=== PATIENT | female | born 1970 | race Hispanic/Latino ===

== ENCOUNTER 2018-05-02 13:06 | Emergency (ER) | payer BC ==
[2018-05-02] MEDS ORDERED: NA CHLORIDE 0.9% 500 ML ONE (13:46)
--- NOTE | 2018-05-02 14:19 | RAD REPORT ---
EXAM DESCRIPTION: Kristan Single View05/02/2018 2:12 pm CLINICAL HISTORY: Palpitation hypertension COMPARISON: April 30, 2018 FINDINGS: The lungs appear clear of acute infiltrate. The heart is normal size IMPRESSION: No acute abnormalities displayed
[2018-05-02 14:43] LABS: BUN Blood Urea Nitrogen 7 mg/dL (7-18); Bicarbonate 26 mmol/L (21-32); CKMB Creatine Kinase MB 1.4 ng/mL (0.3-3.6); Creatine Phosphokinase 123 U/L (26-192); Glucose Level 100 mg/dL (74-106); Magnesium 2.1 mg/dL (1.8-2.4); NT PRO-BNP 595 pg/mL (<125); Potassium 3.7 mmol/L (3.5-5.1); Sodium Level 141 mmol/L (136-145)
[2018-05-02 15:23] LABS: Absolute Lymphocytes (CBC) 2.4 K/uL (0.7-4.9); Absolute Monocytes 0.5 K/uL (0.1-1.3); Absolute Neutrophil 4.8 K/uL (1.8-8.0); Basophils % 0.6 % (0-1.3); Eosinophils % 0.7 % (0-4.4); Hematocrit 43.1 % (36.0-45.0); Lymphocytes % 30.5 % (15.3-44.8); MCV 89.1 fL (80-100); MPV 8.2 fL (7.6-11.3); Monocytes % 6.5 % (3.3-12.3); RBC Red Blood Cell Count 4.84 M/uL (3.86-4.86)
--- NOTE | 2018-05-02 16:09 | ER ---
Nurse's Notes [facility] Name: Nika Low Age: 47 yrs Sex: Female : 1970 Arrival Date: 05/02/2018 Time: 13:07 Bed 6 Private MD: Jeet Tucker Diagnosis: Palpitations;Ventricular premature depolarization Presentation: 05/02 13:28 Presenting complaint: Patient states: "My blood pressure has been normal and then high aa5 since Friday". Pt also reports heart palpitations since yesterday. Pt states "I have an arrhythmia". Pt states "Dr. Tucker saw me a few days ago and told me to stop taking Coreg because my heart rate was low and I took it again today". Pt states "I have an appointment with Dr. Guo (cardiology) for Friday". Transition of care: patient was not received from another setting of care. Onset of symptoms was April 2018. Risk Assessment: Do you want to hurt yourself or someone else? Patient reports no desire to harm self or others. Initial Sepsis Screen: Does the patient meet any 2 criteria? No. Patient's initial sepsis screen is negative. Does the patient have a suspected source of infection? No. Patient's initial sepsis screen is negative. Care prior to arrival: None. 13:28 Method Of Arrival: Ambulatory aa5 13:28 Acuity: GRANT 3 aa5 Historical: - Allergies: 13:30 caffeine; aa5 13:30 Sudafed; aa5 13:30 zpack; aa5 - Home Meds: 15:57 carvedilol 6.25 mg Oral tab [Active]; Cymbalta 20 mg Oral TbEC [Active]; levothyroxine tw2 150 mcg tab [Active]; simvastatin 40 mg Oral tab [Active]; - PMHx: 13:30 High Cholesterol; Hypothyroidism; Thyroid problem; Bigeminy Arrythmia; aa5 - PSHx: 13:30 Hysterectomy; Thyroidectomy; Knee surgery; aa5 - Immunization history:: Adult Immunizations. - Ebola Screening: : No symptoms or risks identified at this time. - Social history:: Smoking status: Patient/guardian denies using tobacco. Screenin:20 Abuse screen: Denies threats or abuse. Nutritional screening: No deficits noted. ae1 Tuberculosis screening: No symptoms or risk factors identified. Fall Risk None identified. Assessment: 14:42 General: Appears in no apparent distress. comfortable, obese, well groomed, Behavior is ae1 calm, cooperative. Pain: Denies pain. Neuro: Level of Consciousness is awake, alert, obeys commands, Oriented to person, place, time, situation. Cardiovascular: Heart tones S1 S2 present Patient's skin is warm and dry. Rhythm is irregular. Cardiovascular: Reports palpitations. Respiratory: Airway is patent Respiratory effort is even, unlabored, Respiratory pattern is regular, symmetrical. GI: No signs and/or symptoms were reported involving the gastrointestinal system. Abdomen is round obese. : No signs and/or symptoms were reported regarding the genitourinary system. EENT: No signs and/or symptoms were reported regarding the EENT system. Derm: Skin is normal. Musculoskeletal: No signs and/or symptoms reported regarding the musculoskeletal system. 16:05 Reassessment: Patient up to bathroom, obtained urine sample at this time. ae1 Vital Signs: 13:28 BP 158 / 80; Pulse 74; Resp 18 S; Temp 98.7; Pulse Ox 98% on R/A; Pain 0/10; aa5 14:44 BP 144 / 79; Pulse 65; Resp 17; Pulse Ox 98% on R/A; ae1 15:54 BP 137 / 73; Pulse 87; Resp 17; Pulse Ox 98% on R/A; tw2 ED Course: 13:07 Patient arrived in ED. mr 13:07 Jeet Tucker MD is Private Physician. mr 13:31 Arm band placed on. aa5 13:33 Brando Montgomery MD is Attending Physician. rn 13:40 Triage completed. aa5 13:50 EKG done, by ED staff, reviewed by Brando Montgomery MD. jb1 13:55 Tulio Krishnan, RN is Primary Nurse. ae1 14:00 Missed attempt(s): 22 gauge in right antecubital area. Bleeding controlled, band aid tw2 applied, catheter tip intact. 14:11 X-ray completed. Portable x-ray completed in exam room. Patient tolerated procedure la2 well. 14:11 XRAY Chest (1 view) In Process Unspecified. EDMS 14:20 Inserted saline lock: 24 gauge in right forearm, using aseptic technique. Blood ae1 collected. Missed attempt(s): 22 gauge in left antecubital area. 14:21 Placed in gown. Bed in low position. Call light in reach. Side rails up X 1. Cardiac ae1 monitor on. Pulse ox on. NIBP on. 16:07 Jeet Tucker MD is Referral Physician. rn 16:43 No provider procedures requiring assistance completed. IV discontinued, intact, ae1 bleeding controlled, No redness/swelling at site. Pressure dressing applied. Administered Medications: 14:19 Drug: NS 0.9% 500 ml Route: IV; Rate: bolus; Site: right forearm; ae1 16:44 Follow up: IV Status: Completed infusion ae1 Outcome: 16:08 Discharge ordered by MD. rn 16:43 Discharged to home ambulatory. ae1 16:43 Condition: stable 16:43 Discharge instructions given to patient, Instructed on discharge instructions, follow up and referral plans. Demonstrated understanding of instructions. 16:43 Patient left the ED. ae1 Signatures: Dispatcher [employer] EDMS Arvind Muse jb1 Kamila Griffith mr Brando Montgomery MD MD rn Calderon, Audri, RN RN aa5 Micheline Omalley RN RN tw2 Tulio Krishnan RN RN ae1 Mercedez Handy2
--- NOTE | 2018-05-02 16:09 | EDPHYS ---
Physician Documentation [facility] Name: Nika Low Age: 47 yrs Sex: Female : 1970 Arrival Date: 05/02/2018 Time: 13:07 Bed 6 Private MD: Jeet Tucker ED Physician Brando Montgomery HPI: 05/02 15:26 This 47 yrs old Female presents to ER via Ambulatory with complaints of rn Palpitations, High Blood Pressure. 15:26 The patient presents with a history of heart skipping beats. Context: The symptoms rn occur at rest. Onset: The symptoms/episode began/occurred yesterday. Duration: The patient or guardian reports multiple episodes. Modifying factors: The symptoms are aggravated by. Severity of symptoms: At their worst the symptoms were mild in the emergency department the symptoms have improved. The patient has experienced similar episodes in the past. Reports has had bigeminy for years, supposed to take coreg, stopped taking her coreg a few days ago because HR was low, as a result BP and HR increased, reports palpitations and intermittent chest pain. Seen by pcp, normal bloodwork and cxr, has appt with cardiology in 3 days.. Historical: - Allergies: 13:30 caffeine; aa5 13:30 Sudafed; aa5 13:30 zpack; aa5 - Home Meds: 15:57 carvedilol 6.25 mg Oral tab [Active]; Cymbalta 20 mg Oral TbEC [Active]; levothyroxine tw2 150 mcg tab [Active]; simvastatin 40 mg Oral tab [Active]; - PMHx: 13:30 High Cholesterol; Hypothyroidism; Thyroid problem; Bigeminy Arrythmia; aa5 - PSHx: 13:30 Hysterectomy; Thyroidectomy; Knee surgery; aa5 - Immunization history:: Adult Immunizations. - Ebola Screening: : No symptoms or risks identified at this time. - Social history:: Smoking status: Patient/guardian denies using tobacco. ROS: 16:05 Constitutional: Negative for fever, chills, and weight loss, Eyes: Negative for injury, rn pain, redness, and discharge, Neck: Negative for injury, pain, and swelling, Cardiovascular: + palpitations Respiratory: Negative for shortness of breath, cough, wheezing, and pleuritic chest pain, Abdomen/GI: Negative for abdominal pain, nausea, vomiting, diarrhea, and constipation, MS/Extremity: Negative for injury and deformity, Skin: Negative for injury, rash, and discoloration, Neuro: Negative for headache, weakness, numbness, tingling, and seizure. Exam: 16:05 Constitutional: This is a well developed, well nourished patient who is awake, alert, rn and in no acute distress. Head/Face: Normocephalic, atraumatic. Eyes: Pupils equal round and reactive to light, extra-ocular motions intact. Lids and lashes normal. Conjunctiva and sclera are non-icteric and not injected. Cornea within normal limits. Periorbital areas with no swelling, redness, or edema. Neck: Trachea midline, no thyromegaly or masses palpated, and no cervical lymphadenopathy. Supple, full range of motion without nuchal rigidity, or vertebral point tenderness. No Meningismus. Cardiovascular: Regularly irregular, no murmur, regular rate Respiratory: Lungs have equal breath sounds bilaterally, clear to auscultation and percussion. No rales, rhonchi or wheezes noted. No increased work of breathing, no retractions or nasal flaring. Abdomen/GI: Soft, non-tender, with normal bowel sounds. No distension or tympany. No guarding or rebound. No evidence of tenderness throughout. Skin: Warm, dry with normal turgor. Normal color with no rashes, no lesions, and no evidence of cellulitis. MS/ Extremity: Pulses equal, no cyanosis. Neurovascular intact. Full, normal range of motion. Equal circumference. Neuro: Awake and alert, GCS 15, oriented to person, place, time, and situation. Cranial nerves II-XII grossly intact. Motor strength 5/5 in all extremities. Sensory grossly intact. Cerebellar exam normal. Normal gait. Vital Signs: 13:28 BP 158 / 80; Pulse 74; Resp 18 S; Temp 98.7; Pulse Ox 98% on R/A; Pain 0/10; aa5 14:44 BP 144 / 79; Pulse 65; Resp 17; Pulse Ox 98% on R/A; ae1 15:54 BP 137 / 73; Pulse 87; Resp 17; Pulse Ox 98% on R/A; tw2 MDM: 13:33 Patient medically screened. rn 16:05 Differential diagnosis: arrythmia, dehydration, stress disorder. Data reviewed: vital rn signs, nurses notes. Data reviewed: lab test result(s), EKG, and as a result, I will discharge patient. Counseling: I had a detailed discussion with the patient and/or guardian regarding: the historical points, exam findings, and any diagnostic results supporting the discharge/admit diagnosis, lab results, the need for outpatient follow up, to return to the emergency department if symptoms worsen or persist or if there are any questions or concerns that arise at home. Response to treatment: the patient's symptoms have mildly improved after treatment, and as a result, I will discharge patient. ED course: Pt feels better, still with intermittent PVCs, at times with known bigeminy, has cardiology appt on Friday, has prescription for coreg that I recommended she start back up again since had been off, is to monitor BP and HR and not take coreg if either too low again. . 05/02 13:40 Order name: Basic Metabolic Panel; Complete Time: 14:59 rn 05/02 13:40 Order name: CBC with Diff; Complete Time: 15:26 rn 05/02 13:40 Order name: Ckmb; Complete Time: 14:59 05/02 13:40 Order name: CPK; Complete Time: 14:59 05/02 13:40 Order name: Magnesium; Complete Time: 14:59 05/02 13:40 Order name: NT PRO-BNP; Complete Time: 14:59 05/02 13:40 Order name: Troponin (emerg Dept Use Only); Complete Time: 14:59 05/02 13:40 Order name: XRAY Chest (1 view); Complete Time: 14:23 05/02 13:40 Order name: EKG; Complete Time: 13:40 05/02 13:40 Order name: TSH; Complete Time: 14:59 05/02 13:40 Order name: T4 Free; Complete Time: 14:59 05/02 16:12 Order name: Urine Dipstick--Ancillary (enter results) bd 05/02 16:12 Order name: Urine --Ancillary (enter results) bd 05/02 13:40 Order name: Urine Test (obtain specimen); Complete Time: 15:57 05/02 13:40 Order name: Cardiac monitoring; Complete Time: 14:19 05/02 13:40 Order name: EKG - Nurse/Tech; Complete Time: 13:55 rn 05/02 13:40 Order name: IV Saline Lock; Complete Time: 14: rn 05/02 13:40 Order name: Labs collected and sent; Complete Time: 14:19 rn 05/02 13:40 Order name: O2 Per Protocol; Complete Time: 14:19 rn 05/02 13:40 Order name: O2 Sat Monitoring; Complete Time: 14: rn 05/02 13:40 Order name: Urine Dipstick-Ancillary (obtain specimen); Complete Time: 15:57 rn Administered Medications: 14:19 Drug: NS 0.9% 500 ml Route: IV; Rate: bolus; Site: right forearm; ae1 16:44 Follow up: IV Status: Completed infusion ae1 Disposition: 05/02/18 16:08 Discharged to Home. Impression: Palpitations, Ventricular premature depolarization. - Condition is Stable. - Discharge Instructions: Palpitations, Premature Ventricular Contraction. - Medication Reconciliation Form, Thank You Letter, Antibiotic Education, Prescription Opioid Use form. - Follow up: Jeet Tucker MD; When: As needed; Reason: Recheck today's complaints, Re-evaluation by your physician. - Problem is an ongoing problem. - Symptoms have improved. Signatures: Dispatcher [employer] EDMS Brando Montgomery MD MD rn Calderon, Audri RN RN aa5 Micheline Omalley RN RN tw2 Tulio Krishnan, RN RN ae1 Corrections: (The following items were deleted from the chart) 16:43 16:08 05/02/2018 16:08 Discharged to Home. Impression: Palpitations; Ventricular ae1 premature depolarization. Condition is Stable. Forms are Medication Reconciliation Form, Thank You Letter, Antibiotic Education, Prescription Opioid Use. Follow up: Jeet Tucker; When: As needed; Reason: Recheck today's complaints, Re-evaluation by your physician. Problem is an ongoing problem. Symptoms have improved. rn
[2018-05-02 16:20] LABS: Urine Blood TRACE (NEG); Urine Glucose NEGATIVE (NEG); Urine Protein NEGATIVE (NEG)
[2018-05-02 16:49] VITALS: TEMP 98.7; O2SAT 98
[2018-05-02 16:51] VITALS: BP 137/73
--- NOTE | 2018-05-04 07:45 | EKG ---
Test Date: 2018-05-02 Test Time: 13:46:42 Referral Clerk: JHON MEASUREMENT RESULTS: Intervals: Rate: 65 TX: 192 QRSD: 92 QT: 450 QTc: 468 [place]: P: 29 TX: 192 QRS: -33 T: 66 INTERPRETIVE STATEMENTS: Sinus rhythm with frequent premature ventricular complexes Left axis deviation Moderate voltage criteria for LVH, may be normal variant Abnormal ECG Compared to ECG 04/03/2017 15:24:19 Sinus bradycardia no longer present Myocardial infarct finding no longer present Electronically Signed On 05-04-18 07:44:59 CDT by Jordi Guo
== END 2018-05-02 16:43 | disposition home or self-care (01) ==
LOC: ER 13:06
DX: R00.2 Palpitations (principal); I49.3 Ventricular premature depolarization; I10 Essential (primary) hypertension; E03.9 Hypothyroidism, unspecified; Z88.8 Allergy status to other drugs, medicaments and biological substances; Z91.048 Other nonmedicinal substance allergy status
CPT/HCPCS: 36415; 71045; 80048; 81003; 81025; 82550; 82553; 83735; 83880; 84439; 84443; 84484; 85025; 93005; 96360; 96361; 99284

== ENCOUNTER 2020-03-13 13:12 | Emergency (ER) | payer BC ==
[2020-03-13 15:23] LABS: Absolute Lymphocytes (CBC) 2.3 K/uL (0.7-4.9); Basophils % 0.5 % (0-1.3); Hematocrit 46.6 % (36.0-45.0); Lymphocytes % 29.2 % (15.3-44.8); MPV 8.3 fL (7.6-11.3); RBC Red Blood Cell Count 5.22 M/uL (3.86-4.86)
--- NOTE | 2020-03-13 15:23 | RAD REPORT ---
EXAM DESCRIPTION: RAD - Chest Single View - 03/13/2020 3:13 pm CLINICAL HISTORY: CHEST PAIN Chest pain. COMPARISON: Chest Single View dated 05/02/2018; Chest Pa And Lat (2 Views) dated 04/30/2018; Chest Sin gle View dated 04/03/2017; Chest Single View dated 01/29/2016 FINDINGS: Portable technique limits examination quality. The lungs are grossly clear. The heart is normal in size. No displaced fractures. IMPRESSION: No acute intrathoracic process suspected.
[2020-03-13] MEDS ORDERED: ASPIRIN EC 81 MG TAB PO ONE (15:49)
[2020-03-13 15:52] LABS: ALT/SGPT 28 U/L (12-78); AST/SGOT 15 U/L (15-37); Albumin 3.8 g/dL (3.4-5.0); Alkaline Phosphatase 79 U/L (45-117); BUN Blood Urea Nitrogen 17 mg/dL (7-18); Bicarbonate 28 mmol/L (21-32); Bilirubin Direct < 0.1 mg/dL (0-0.2); Bilirubin Total 0.5 mg/dL (0.2-1.0); Glucose Level 89 mg/dL (74-106); Magnesium 2.3 mg/dL (1.8-2.4); NT PRO-BNP 43 pg/mL (<125); Potassium 4.3 mmol/L (3.5-5.1); Protein, Total 7.9 g/dL (6.4-8.2); Sodium Level 138 mmol/L (136-145); Troponin (Emerg Dept Use Only) < 0.02 ng/mL (0.0-0.045)
--- OUTSIDE RECORDS SUMMARY | 2020-03-13 16:15 | XMS REPORT | Summary of Care ---
:1970 Author Organization [facility] Address [address] [place] [id number] Care Team Providers Name Role Phone Caitlin Jeet Primary Care Provider Reason for Referral Radiology Services (Routine) Status Reason Specialty Diagnoses / Referred By Referred To Procedures Contact Contact New Request Diagnostic Diagnoses Postsurgical hypothyroidism Thyroid cancer Silver[place], Radiology Procedures US HEAD NECK MD Bridgette [address] [place] [id number] Reason for Visit Reason Comments Thyroid Problem follow up Encounter Details Date Type Department Care Team Description 02/14/2020 Telemedicine Visit [facility] [place]io, Postsurgi shahla hypothyroidism (Primary Dx); Endocrinology- MD Bridgette Thyroid cancer; [address] Class 3 severe obesity due t o excess calories without serious comorbidity with body mass index (BMI) of 45.0 to 49.9 in adult Professional [address] [address] [address] [place], [place] [phone] (Fax) [phone] Allergies Active Allergy Reactions Severity Noted Date Comments Codeine Palpitations 06/21/2015 documented as of this encounter (statuses as of 02/14/2020) Medications Medication Sig Dispensed Refills Start Date End Date Status simvastatin (ZOCOR) 40 Take 1 Tab by 90 Tab 3 11/14/2015 Active mg tabletIndications: mouth at HLD (hyperlipidemia) bedtime. carvedilol (COREG) 3.125 Take 1 tablet by 60 tablet 1 05/14/20 17 Active mg tabletIndications: mouth 2 (two) Heart palpitations times daily with meals. meloxicam 15 mg tablet Take 15 mg by 0 Active mouth daily. spironolactone 50 mg Take 50 mg by 0 Active tablet mouth daily. levothyroxine 150 mcg TAKE 1 TABLET BY 90 tablet 0 01/31/2020 Active tabletIndications: MOUTH EVERY DAY Postsurgical IN THE MORNING hypothyroidism, Thyroid cancer documented as of this encounter (statuses as of 02/14/2020) Active Problems Problem Noted Date Postsurgical hypothyroidism 05/14/2017 H. 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 documented as of this encounter Last Filed Vital Signs Not on filedocumented in this encounter Progress Notes Bridgette Sawyer MD - 02/14/2020 3:00 PM CDT TELEHEALTH NOTE Verbal consent obtained from Patient: Nika Low due to the COVID-19 pandemic for telehealth services provided below. Communication with patient was conducted via Video Call. Location of Patient: Home Location of Provider: Clinic Date of Service: 02/14/2020 Chief complaint: Hypothyroidism/Thyroid cancer- follow up HPI: Nika Low is a 48 year old /White female eith hx of postsurgical hypothyroidism and PTC. [facility] 12/2018. 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 In terms of surveillance, she has not brought any Thyroglobulin levels but states had been OK. Her postsurgical yearly head and neck USG show no recurrence in 07/2011, 10/2011, 11/2012, 10/2013,11/2015 Patient was released from [facility] cancer center in 2013. TG, TG AB undetectable in 04/2016, 04/2017, 12/2018 neck USG 11/2015- no thyroid tissue and benign looking lymph nodes in neck Postsurgical hypothyroidism: Takes Levothyroxine at 150 mcg daily. As instructed. No biotin Feels fine at this time. Denied heat or cold intolerance. Denied palpitations or tremors. Bowel function sleep, appetite and weight are good. Weight loss-- about 40 lbs in last year which was intentional. HISTORY Reviewed past medical, surgical, social, family history and no changes REVIEW OF SYSTEMS Constitutional: + weight loss- 40 Lb in last year Mouth/Throat: denies dysphagia and denies hoarseness. Neck: negative, denies pain, denies swollen glands Cardiovascular: Denies palpitations. Respiratory: denies chest congestion, denies dyspnea on exertion and denies shortness of breath. Gastrointestinal: denies abdominal pain. Musculoskeletal: denies muscle cramps. Skin: denies rash. Neuro: denies tremor. TELEHEALTH EXAM Patient appears alert and oriented. Breathing unlabored. Answered all the questions appropriately. Normal thought content/speech Current Outpatient Medications Medication Sig Dispense Refill levothyroxine 150 mcg tablet TAKE 1 TABLET BY MOUTH EVERY DAY IN THE MORNING 90 tablet 0 meloxicam 15 mg tablet Take 15 mg by mouth daily. spironolactone 50 mg tablet Take 50 mg by mouth daily. carvedilol (COREG) 3.125 mg tablet Take 1 tablet by mouth 2 (two) times daily with meals. 60 tablet 1 simvastatin (ZOCOR) 40 mg tablet Take 1 Tab by mouth at bedtime. 90 Tab 3 No current facility-administered medications for this visit. 11/17/2015 1:56 PM Narrative *.*.*.*.*.*.*.*.*.*.*.*.*.*FINAL*.*.*.*.*.*.*.*.*.*.*.*.*.*.* HISTORY: History of thyroidectomy. TECHNIQUE: Thyroid gland region and rest of the lower neck were evaluated in multiple planes without and with color imaging. FINDINGS: No residual thyroid tissue detected. 2 lymph nodes are seen in the right lower neck (15 x 6.5 mm, 6.2 x 4.8 mm) and 2 lymph nodes were detected also in the left lower neck, (11.4 x 4.7 mm and 10 x 4.6 mm). None of these lymph nodes showed any hypervascularity and the mediastinal fatty halo appears to be preserved in all of the lymph nodes. CONCLUSIONS: Small lymph nodes in both sides of neck, likely incidental nonspecific cervical adenopathy. No residual thyroid tissue is appreciated. Component Latest Ref Rng 05/02/2016 05/02/2016 05/02/2016 8:43 AM 8:43 AM 8:43 AM THYROGLOBULIN ANTIBODIES-Q < or = 1 IU/mL <1 THYROGLOBULIN-Q <0.1 (L) TSH, 3RD GENERATION-Q 0.92 T-4, FREE-Q 0.8 - 1.8 ng/dL 1.5 Component Latest Ref Rng & Units 11/07/2017 11/07/2017 12:04 PM 12:04 PM TSH, 3RD GENERATION-Q mIU/L 1.27 T-4, FREE-Q 0.8 - 1.8 ng/dL 1.4 Recent labs 04/2017: Undetectable TG and TG AB TFT's at goal Component Latest Ref Rng & Units 01/05/2019 3:59 PM THYROGLB Ab 0.0 - 4.0 IU/mL <0.9 THYROGLOB 1.3 - 31.8 ng/mL <0.1 (L) Thyroglobulin by LC-MS/MS Serum/Plasma 1.3 - 31.8 ng/mL Not Applicable T4,Free(Direct)-LC 0.82 - 1.77 ng/dL 1.76 TSH-LC 0.450 - 4.500 uIU/mL 1.300 THYROGLB Ab 0.0 - 0.6 U 0.1 ASSESSMENT/PLAN ICD-10-CM ICD-9-CM 1. Postsurgical hypothyroidism E89.0 244.0 2. Thyroid cancer C73 193 Postsurgical hypothyroidism (primary encounter diagnosis) Comment: Clinically euthyroid. Repeat TFTs when able Plan: Continue LT4 at 150 mcg daily, adjust if needed based on TFTs Repeat TFTs prior to NOV TSH goal 0.5-2.0 F/U in a year Thyroid cancer Comment: No recurrence of thyroid cancer. In excellent response at this time. Plan: Repeat neck USG and TG/TGAb prior to AUG TSH goal 0.5-2 Obesity: Current weight is 290 lbs , ANGY a year ago weight was 335 lbs. Plan: Therapeutic lifestyle changes Diet--Limit red meats, sugary drinks, sweets/desserts, fried foods and full fat dairy products. Exercise-- 30-40 min daily exercise everyday. After visit summary (AVS ) documentation will be available through [employer] for this encounter. A total of 20 minutes was spent on the Video Call, chart review, and coordination of care with specialists. Bridgette Sawyer MD Registration Officer Endocrinology, Diabetes and Metabolism documented in this encounter Plan of Treatment Name Type Priority Associated Diagnoses Order S chedule FREE T4 LAB Routine Postsurgical Expected: hypothyroidism 02/14/2020, Thyroid cancer Expires: 01/2021 THYROID STIMULATING LAB Routine Postsurgical Expected : HORMONE hypothyroidism 02/14/2020, Thyroid cancer Expires: 01/2021 US HEAD NECK IMAGING Routine Postsurgical Expected: hypothyroidism 05/16/2020, Thyroid cancer Expires: 01/2021 THYROGLOBULIN LAB Routine Postsurgical Expected: hypothyroidism 02/14/2020, Thyroid cancer Expires: 01/2021 THYROGLOBULIN AB LAB Routine Postsurgical Expected: hypothyroidism 02/14/2020, Thyroid cancer Expires: 01/2021 Health Maintenance Due Date Last Done Comments PNEUMOCOCCAL 0-64 YEARS COMBINED SERIES (1 of 3 - 12/10/1977 PCV13) DTaP,Tdap,and Td Vaccines (1 - Tdap) 12/10/1982 PAP SMEAR 12/10/1992 Breast Cancer Screening (MAMMOGRAM) 2011 INFLUENZA VACCINE (Season Ended) 2020 documented as of this encounter Results Not on filedocumented in this encounter Visit Diagnoses Diagnosis Postsurgical hypothyroidism - Primary Thyroid cancer Malignant neoplasm of thyroid gland Class 3 severe obesity due to excess shahla ories without serious comorbidity with body mass index (BMI) of 45.0 to 49.9 in adul t documented in this encounter Insurance Payer Benefit Plan Subscriber ID Effective Dates Phone Address Type / Group BCBS OF [facility] [id number] 2015-Andie [phone] [address] P[place] - OUT OF t [id number] [place] [address] documented as of this encounter
--- OUTSIDE RECORDS SUMMARY | 2020-03-13 16:15 | XMS REPORT ---
:1970 Author Organization [facility] t Address [address] [place] [address] Care Team Providers Name Role Phone Silverio AMAYA Attending Clinician Problems This patient has no known problems. Allergies, Adverse Reactions, Alerts This patient has no known allergies or adverse reactions. Medications This patient has no known medications. Procedures This patient has no known procedures. Encounters Start End Encounter Admission Attending Care Care Encounter Source Date/Time Date/Time Type Type Clinicians Facility Department ID 2020-02-14 2020-02-14 Telemed[facility] TIFFANY Sawyer [id number] 13:10:59 16:24:17 ne Visit Bridgette Moreno [id number] [place] [id number] Professio [phone] nal [address] Building 2020-01-31 2020-01-31 Refill TIFFANY Sawyer [id number] 00:00:00 00:00:00 Bridgette Moreno [id number] [place] [id number] Professio [phone] nal 220 Building Results This patient has no known results.
--- OUTSIDE RECORDS SUMMARY | 2020-03-13 16:15 | XMS REPORT | Summary of Care ---
:1970 Author Organization [facility] Address [address] [place] [id number] Care Team Providers Name Role Phone Jeet Tucker Primary Care Provider Reason for Visit Reason Comments Refill Request Encounter Details Date Type Department Care Team Description 01/31/2020 Refill [facility] Endocrinology- Bridgette Joshi MD Refill Request [address] Professional Office [address] Bermudez [phone] [address] [place] [address] Allergies Active Allergy Reactions Severity Noted Date Comments Codeine Palpitations 06/21/2015 documented as of this encounter (statuses as of 01/31/2020) Medications Medication Sig Dispensed Refills Start Date End Date Status simvastatin (ZOCOR) Take 1 Tab 90 Tab 3 11/14/2015 Active 40 mg by mouth at tabletIndications: bedtime. HLD (hyperlipidemia) carvedilol (COREG) Take 1 60 tablet 1 05/14/2017 Active 3.125 mg tablet by tabletIndications: mouth 2 Heart palpitations (two) times daily with meals. meloxicam 15 mg Take 15 mg 0 Act sudha tablet by mouth daily. spironolactone 50 Take 50 mg 0 A ctive mg tablet by mouth daily. levothyroxine 150 TAKE 1 90 tablet 0 01/31/2020 A ctive mcg TABLET BY tabletIndications: MOUTH EVERY Postsurgical DAY IN THE hypothyroidism, MORNING Thyroid cancer levothyroxine 150 TAKE 1 90 tablet 3 01/05/2019 D iscontinued mcg TABLET BY 0 (Reorder) tabletIndications: MOUTH EVERY Postsurgical DAY IN THE hypothyroidism, MORNING Thyroid cancer documented as of this encounter (statuses as of 01/31/2020) Active Problems Problem Noted Date Postsurgical hypothyroidism 05/14/2017 H. pylori infection 09/12/2010 Helicobacter pylori infection 08/31/2010 Overview: ICD10 Diagnosis Term [employer] Morbid obesity 06/12/2010 Thyroid cancer 06/12/2010 HLD (hyperlipidemia) 06/12/2010 Overview: ICD10 Diagnosis Term [employer] CLIFFORD (obstructive sleep apnea) Hyperlipemia documented as of this encounter (statuses as of 01/31/2020) Social History Tobacco Use Types Packs/Day Years [...] Signs Not on filedocumented in this encounter Plan of Treatment Date Type Specialty Care Team Description 02/14/2020 Office Visit Endocrinology Diabetes & Kesired dyBridgette MD Metabolism [address] [place] [address] [phone] Health Maintenance Due Date Last Done Comments PNEUMOCOCCAL 0-64 YEARS COMBINED SERIES (1 of 3 - 12/10/1977 PCV13) DTaP,Tdap,and Td Vaccines (1 - Tdap) 12/10/1982 PAP SMEAR 12/10/1992 Breast Cancer Screening (MAMMOGRAM) 2011 INFLUENZA VACCINE (#1) 2019 documented as of this encounter Results Not on filedocumented in this encounter Visit Diagnoses Diagnosis Postsurgical hypothyroidism Thyroid cancer Malignant neoplasm of thyroid gland documented in this encounter Insurance Payer Benefit Plan Subscriber ID Effective Dates Phone Address Type / Group BC[employer] OF [facility] [place] [id number] 2015-Andie [phone] [address] [place] - OUT OF t 7 [id number] [place] [address] documented as of this encounter
[2020-03-13 17:05] VITALS: TEMP 97.9
[2020-03-13 17:08] VITALS: BP 128/88; O2SAT 100
--- NOTE | 2020-03-13 20:17 | EDPHYS ---
Physician Documentation [facility] Name: Nika Low Age: 49 yrs Sex: Female : 1970 Arrival Date: 03/13/2020 Time: 13:23 Bed 15 Private MD: MARVIN Physician Bay Vang HPI: 03/13 14:32 This 49 yrs old Female presents to ER via Ambulatory with complaints of High seth Blood Pressure. 14:32 The patient has elevated blood pressure and discovered this at home. Onset: The seth symptoms/episode began/occurred just prior to arrival. Modifying factors: The symptoms are aggravated by activity, The symptoms are alleviated by remaining still. Associated signs and symptoms: The patient has no apparent associated signs or symptoms. Severity of symptoms: At its worst the blood pressure was moderate, in the emergency department the blood pressure is improved, moderately. The patient has experienced similar episodes in the past, a few times. 14:34 The patient complains of pain to the forehead. The patient describes the headache as seth aching. Onset: The symptoms/episode began/occurred just prior to arrival. bp up at work, went home got perez, noted bp high , called oren, sent to the er. Associated signs and symptoms: Pertinent positives: dizziness. Severity of symptoms: At its worst the pain was mild, in the emergency department the pain is unchanged. - Immunization history:: Adult Immunizations unknown. - Social history:: Smoking status: Patient denies any tobacco usage or history of. - Family history:: not pertinent. ROS: 14:34 Constitutional: Negative for fever, chills, and weight loss, Eyes: Negative for injury, seth pain, redness, and discharge, ENT: Negative for injury, pain, and discharge, Neck: Negative for injury, pain, and swelling, Cardiovascular: Negative for chest pain, palpitations, and edema, Respiratory: Negative for shortness of breath, cough, wheezing, and pleuritic chest pain, Abdomen/GI: Negative for abdominal pain, nausea, vomiting, diarrhea, and constipation, : Negative for injury, bleeding, discharge, and swelling, MS/Extremity: Negative for injury and deformity, Skin: Negative for injury, rash, and discoloration, Psych: Negative for depression, anxiety, suicide ideation, homicidal ideation, and hallucinations, Allergy/Immunology: Negative for hives, rash, and allergies, Endocrine: Negative for neck swelling, polydipsia, polyuria, polyphagia, and marked weight changes. 14:34 Back: Negative for injury and pain. seth 14:34 Neuro: Positive for headache, weakness. Exam: 14:34 Constitutional: This is a well developed, well nourished patient who is awake, alert, seth and in no acute distress. Head/Face: Normocephalic, atraumatic. Eyes: Pupils equal round and reactive to light, extra-ocular motions intact. Lids and lashes normal. Conjunctiva and sclera are non-icteric and not injected. Cornea within normal limits. Periorbital areas with no swelling, redness, or edema. ENT: Nares patent. No nasal discharge, no septal abnormalities noted. Tympanic membranes are normal and external auditory canals are clear. Oropharynx with no redness, swelling, or masses, exudates, or evidence of obstruction, uvula midline. Mucous membranes moist. Neck: Trachea midline, no thyromegaly or masses palpated, and no cervical lymphadenopathy. Supple, full range of motion without nuchal rigidity, or vertebral point tenderness. No Meningismus. Chest/axilla: Normal chest wall appearance and motion. Nontender with no deformity. No lesions are appreciated. Cardiovascular: Regular rate and rhythm with a normal S1 and S2. No gallops, murmurs, or rubs. Normal PMI, no JVD. No pulse deficits. Respiratory: Lungs have equal breath sounds bilaterally, clear to auscultation and percussion. No rales, rhonchi or wheezes noted. No increased work of breathing, no retractions or nasal flaring. Abdomen/GI: Soft, non-tender, with normal bowel sounds. No distension or tympany. No guarding or rebound. No evidence of tenderness throughout. Back: No spinal tenderness. No costovertebral tenderness. Full range of motion. Skin: Warm, dry with normal turgor. Normal color with no rashes, no lesions, and no evidence of cellulitis. MS/ Extremity: Pulses equal, no cyanosis. Neurovascular intact. Full, normal range of motion. Neuro: Awake and alert, GCS 15, oriented to person, place, time, and situation. Cranial nerves II-XII grossly intact. Motor strength 5/5 in all extremities. Sensory grossly intact. Cerebellar exam normal. Normal gait. Psych: Awake, alert, with orientation to person, place and time. Behavior, mood, and affect are within normal limits. 14:34 Musculoskeletal/extremity: Tendon exam: specific tendon testing normal through active and passive range of motion DVT Exam: No signs of deep vein thrombosis. no pain, no swelling, no tenderness, negative Homans' sign noted on exam, no appreciated bluish discoloration, no erythema, no increased warmth. Vital Signs: 13:44 BP 129 / 75; Pulse 66; Resp 15; Temp 97.9(TE); Pulse Ox 98% on R/A; Weight 130.63 kg; ss Height 5 ft. 8 in. (172.72 cm); Pain 6/10; 15:30 BP 116 / 56; Pulse 48; Resp 16; Pulse Ox 99% on R/A; vc 16:30 BP 128 / 88; Pulse 56; Resp 18; Pulse Ox 100% on R/A; vc 13:44 Body Mass Index 43.79 (130.63 kg, 172.72 cm) Mya Coma Score: 14:39 Eye Response: spontaneous(4). Verbal Response: oriented(5). Motor Response: obeys seth commands(6). Total: 15. MDM: 14:20 Patient medically screened. [facility] 14:38 Data reviewed: vital signs, nurses notes, lab test result(s), EKG, radiologic studies, seth plain films. 14:39 Differential diagnosis: cluster headache, hypertensive crisis, hypertensive headache, seth sinusitis, tension headache. Differential Diagnosis. Data interpreted: domestic violence counselor: rate is 66 beats/min, Pulse oximetry: on room air is 98 %. Test interpretation: by ED physician or midlevel provider: ECG, plain radiologic studies. Counseling: I had a detailed discussion with the patient and/or guardian regarding: the historical points, exam findings, and any diagnostic results supporting the discharge/admit diagnosis, the presence of at least one elevated blood pressure reading (>120/80) during this emergency department visit, lab results, radiology results, the need for outpatient follow up, for definitive care, a comb tender. 15:38 ED course: pt was at work at [employer] when this happened, was hot and sweaty, usual for seth the patient, denies cp, never had cp , chest pressure or discomfort, bp was felt to be high and pt had mild headache. 16:29 Response to treatment: the patient's symptoms have markedly improved after treatment, seth the patient's condition has returned to base line. ED course: all test explained to the patient, will follow up , return if worse.. 03/13 14:27 Order name: Basic Metabolic Panel; Complete Time: 16:25 [facility] 03/13 14:27 Order name: CBC with Diff; Complete Time: 15:36 [facility] 03/13 14:27 Order name: LFT's; Complete Time: 16:25 [facility] 03/13 14:27 Order name: Magnesium; Complete Time: 16:25 [facility] 03/13 14:27 Order name: NT PRO-BNP; Complete Time: 16:25 [facility] 03/13 14:27 Order name: Troponin (emerg Dept Use Only); Complete Time: 16:25 [facility] 03/13 14:27 Order name: XRAY Chest (1 view) [facility] 03/13 14:27 Order name: EKG; Complete Time: 14:28 [facility] 03/13 14:27 Order name: Cardiac monitoring; Complete Time: 15:38 [facility] 03/13 14:27 Order name: EKG - Nurse/Tech; Complete Time: 15:38 [facility] 03/13 14:27 Order name: IV Saline Lock; Complete Time: 15:38 [facility] 03/13 14:27 Order name: Labs collected and sent; Complete Time: 15:38 [facility] 03/13 14:27 Order name: O2 Per Protocol; Complete Time: 15:38 [facility] 03/13 14:27 Order name: O2 Sat Monitoring; Complete Time: 15:40 [facility] Administered Medications: 15:43 Drug: Aspirin 162 mg Route: PO; vc 16:00 Follow up: Response: No adverse reaction vc Disposition: 03/13/20 16:26 Discharged to Home. Impression: Essential (primary) hypertension. - Condition is Stable. - Discharge Instructions: Hypertension, Hypertension, [id number], How to Take Your Blood Pressure, [id number]-eu-[id number], Aspirin and Your Heart, Managing Your Hypertension. - Medication Reconciliation Form, Thank You Letter, Antibiotic Education, Prescription Opioid Use form. - Follow up: Private Physician; When: 2 - 3 days; Reason: Recheck today's complaints, Continuance of care, Re-evaluation by your physician. Follow up: Justin Stone; When: 2 - 3 days; Reason: Recheck today's complaints, Continuance of care, Re-evaluation by your physician. - Problem is new. - Symptoms have improved. Signatures: Dispatcher [employer] EDBay Carney MD MD cha Smirch, Shelby, RN RN Dahlia Sarabia RN RN vc Corrections: (The following items were deleted from the chart) 16:56 16:26 03/13/2020 16:26 Discharged to Home. Impression: Essential (primary) vc hypertension. Condition is Stable. Discharge Instructions: Hypertension, Hypertension, [id number]-[id number], How to Take Your Blood Pressure, Doqb-dz-[id number], Aspirin and Your Heart, Managing Your Hypertension. Forms are Medication Reconciliation Form, Thank You Letter, Antibiotic Education, Prescription Opioid Use. Follow up: Private Physician; When: 2 - 3 days; Reason: Recheck today's complaints, Continuance of care, Re-evaluation by your physician. Follow up: Justin Stone; When: 2 - 3 days; Reason: Recheck today's complaints, Continuance of care, Re-evaluation by your physician. Problem is new. Symptoms have improved. seth
--- NOTE | 2020-03-13 20:17 | ER ---
Nurse's Notes [facility] Name: Nika Low Age: 49 yrs Sex: Female : 1970 Arrival Date: 03/13/2020 Time: 13:23 Bed 15 Private MD: Diagnosis: Essential (primary) hypertension Presentation: 03/13 13:44 Chief complaint:. Chief complaint: Patient states: "I was feeling lightheaded, I was ss sweating and I had a headache. So I bought a soda, took a few sips, still didn't feel good so I knew it was my blood pressure. I called Dr. Tucker and he told me to come to the ER. My blood pressure was 127/90." Pt reports she feels better, but still fatigued. Denies CP, sob, cough and/or fever. Coronavirus screen: Proceed with normal triage. Patient denies a cough. Patient denies shortness of breath or difficulty breathing. Patient denies measured and/or subjective temperature greater than 100.4F prior to today's visit. Patient denies travel on a cruise ship or to a country the [facility] currently lists as an affected area. Patient denies contact with known and/or suspected case of COVID-19. Ebola Screen: Patient denies exposure to infectious person. Patient denies travel to an Ebola-affected area in the 21 days before illness onset. Initial Sepsis Screen: Does the patient meet any 2 criteria? No. Patient's initial sepsis screen is negative. Does the patient have a suspected source of infection? No. Patient's initial sepsis screen is negative. Risk Assessment: Do you want to hurt yourself or someone else? Patient reports no desire to harm self or others. Onset of symptoms was March 13, 2020. 13:44 Acuity: GRANT 3 ss 13:44 Method Of Arrival: Ambulatory ss - Immunization history:: Adult Immunizations unknown. - Social history:: Smoking status: Patient denies any tobacco usage or history of. - Family history:: not pertinent. Screenin:30 Abuse screen: Denies threats or abuse. Nutritional screening: No deficits noted. vc Tuberculosis screening: No symptoms or risk factors identified. Fall Risk None identified. Assessment: 14:30 General: Appears in no apparent distress. uncomfortable, Behavior is cooperative, vc anxious. Pain: Complains of pain in forehead. Neuro: Level of Consciousness is awake, alert, obeys commands, Oriented to person, place, time, situation, Appropriate for age. Cardiovascular: Reports diaphoresis, lightheadedness, Capillary refill < 3 seconds Patient's skin is warm and dry. Respiratory: Airway is patent Respiratory effort is even, unlabored, Respiratory pattern is regular, symmetrical. GI: No signs and/or symptoms were reported involving the gastrointestinal system. : No signs and/or symptoms were reported regarding the genitourinary system. 15:30 Reassessment: Patient appears in no apparent distress at this time. Patient and/or vc family updated on plan of care and expected duration. Pain level reassessed. Patient is alert, oriented x 3, equal unlabored respirations, skin warm/dry/pink. 16:29 Reassessment: Patient appears in no apparent distress at this time. Patient and/or vc family updated on plan of care and expected duration. Pain level reassessed. Patient is alert, oriented x 3, equal unlabored respirations, skin warm/dry/pink. Vital Signs: 13:44 BP 129 / 75; Pulse 66; Resp 15; Temp 97.9(TE); Pulse Ox 98% on R/A; Weight 130.63 kg; ss Height 5 ft. 8 in. (172.72 cm); Pain 6/10; 15:30 BP 116 / 56; Pulse 48; Resp 16; Pulse Ox 99% on R/A; vc 16:30 BP 128 / 88; Pulse 56; Resp 18; Pulse Ox 100% on R/A; vc 13:44 Body Mass Index 43.79 (130.63 kg, 172.72 cm) Smoot Coma Score: 14:39 Eye Response: spontaneous(4). Verbal Response: oriented(5). Motor Response: obeys seth commands(6). Total: 15. ED Course: 13:23 Patient arrived in ED. fj1 13:44 Arm band placed on left wrist. ss 13:47 Triage completed. ss 14:18 Dahlia Vidal, TIANNA is Primary Nurse. vc 14:20 Bay Vang MD is Attending Physician. seth 15:24 XRAY Chest (1 view) In Process Unspecified. EDMS 16:26 Justin Stone MD is Referral Physician. seth 16:55 No provider procedures requiring assistance completed. IV discontinued, intact, vc bleeding controlled, No redness/swelling at site. Pressure dressing applied. Administered Medications: 15:43 Drug: Aspirin 162 mg Route: PO; vc 16:00 Follow up: Response: No adverse reaction vc Outcome: 16:26 Discharge ordered by . seth 16:55 Discharged to home ambulatory. vc 16:55 Condition: good 16:55 Discharge instructions given to patient, Instructed on discharge instructions, follow up and referral plans. Demonstrated understanding of instructions, follow-up care. 16:56 Patient left the ED. vc Signatures: Dispatcher [employer] EDIL Bay Vang MD MD cha Smirch, Shelby, RN RN Dahlia Vidal RN RN Raghav Zamudio fj1
--- NOTE | 2020-03-14 19:28 | EKG ---
Test Date: 2020-03-13 Test Time: 15:06:37 Medical Office Receptionist: MALATHI MEASUREMENT RESULTS: Intervals: Rate: 49 MO: 198 QRSD: 86 QT: 438 QTc: 395 [place]: P: 43 MO: 198 QRS: -20 T: -63 INTERPRETIVE STATEMENTS: Marked sinus bradycardia Nonspecific T wave abnormality Abnormal ECG Compared to ECG 05/02/2018 13:46:42 T-wave abnormality now present Sinus rhythm no longer present Ventricular premature complex(es) no longer present Left-axis deviation no longer present Left ventricular hypertrophy no longer present Electronically Signed On 03-14-20 19:24:23 CDT by Justin Stone
== END 2020-03-13 16:56 | disposition home or self-care (01) ==
LOC: ER 13:12
DX: I10 Essential (primary) hypertension (principal)
CPT/HCPCS: 36415; 71045; 80048; 80076; 83735; 83880; 84484; 85025; 93005; 99283

== ENCOUNTER 2021-10-31 10:22 | Observation (INO) | payer BC ==
--- OUTSIDE RECORDS SUMMARY | 2021-10-31 10:26 | XMS REPORT | Continuity of Care Document ---
:1970 Author Organization [facility] t Address [address] [place] [address] Care Team Providers Name Role Phone DONI Attending Clinician Unavailable JORDI Attending Clinician Unavailable Doctor Unassigned, Name Attending Clinician Unavailable Star Gao PT Attending Clinician Unavailable Christopher AMAYA L Attending Clinician Mary WHITE Attending Clinician Unavailable Funmilayo AMAYA Attending Clinician Jordi OLSON Attending Clinician Vls-Lab Attending Clinician Unavailable Doni AMAYA Attending Clinician 2, Lab Attending Clinician Unavailable Alondra OLSON Attending Clinician Pob1, Care Clinic Attending Clinician Unavailable ALONDRA Attending Clinician Unavailable Payers Payer Name Policy Type Policy Number Effective Date Expiration Date [facility] - [id number] 2015 00:00:00 OUT OF STATE Problems Condition Condition Condition Status Onset Resolution Last Treating Co mments Source Name Details Category Date Date Treatment Clinician Date Postsurgic Postsurgic Disease Active U nivers al al 8- ity of hypothyro[place] dis[place] dism [facility] H. pylori H. pylori Disease Active 2009-10 Uni vers infection infection 2- ity of 00:00: [place] 00 Medical Branch Helicobact Helicobact Disease Active 2009-10 Overview : Univers er pylori er pylori -19 Form[place] i ty of infection infection 00:00: [place] of this [place] 00 note Medical might be Branch different from the original. ICD10 Diagnosis Term [employer] Morbid Morbid Disease Active Univers obesity obesity 06-12 ity of 00:00: 00 Medical Branch Thyroid Thyroid Disease Active Univers cancer cancer 06-12 ity of 00:00: 00 Medical Branch Hyperlipem Hyperlipem Disease Active Overview : Univers ia ia 06-12 [place] ity of 00:00: g of this note Medical might be Branch different from the original. ICD10 Diagnosis Term [employer] Utility CLIFFORD CLIFFORD Disease Active Univers (obstructi (obstructi it y of ve sleep ve sleep [place] apnea) apnea) Medical Branch Allergies, Adverse Reactions, Alerts Allergy Allergy Status Severity Reaction(s) Onset Inactive Treating Comm ents Source Name Type Date Date Clinician Julito Propensi Active Unknown - pressure Un [place] Cough ty to See comments 04-04 to chest it y of adverse 00:00: [place] reaction 00 Medical s Branch SUDAFED DRUG Active Unknown-Cmnt Uni vers COUGH 04-04 ity of 00:00: Medical Branch CODEINE DRUG Active Palpitations Uni vers INGREDI 06-21 ity of 00:00: Medical Branch Codeine Propensi Active Palpitations U nivers ty to 06-21 ity of adverse 00:00: [place] reaction 00 Medical s Branch Social History Social Habit Start Date Stop Date Quantity Comments Source Exposure to Not sure [facility] SARS-CoV-2 [place] Medical (event) Branch Tobacco use and 2021-04-04 2021-04-04 Never used Universit y of exposure 00:00:00 00:00:00 [facility] Alcohol intake 2021-04-04 2021-04-04 Current University of 00:00:00 00:00:00 non-drinker of [facility] alcohol Branch (finding) Sex Ass[birth year] At [birth year] Universit y of 00:00:00 00:00:00 [facility] Smoking Status Start Date Stop Date Source Never smoker [facility] Branch Medications Ordered Filled Start Stop Current Ordering Indication Dosage Frequency Signature Comments Components Source Medication Medication Date Date Medication? Clinician (SIG) Name Name barium 2020- No [id number] 90mL 90 mL, Univ ers sulfate 04-11 Oral, ity of (E-Z-HD 17:00: 16:47 ONCE, 1 [place] BARIUM) 98 00 :00 dose, Wed Medi shahla % oral 04/11/21 at [place] suspension 1200, 90 mL Routine barium 2020- No [id number] 90mL 90 mL, Univ ers sulfate 04-11 Oral, ity of (LIQUID E-Z 17:00: 16:48 ONCE, 1 [place] PAQUE) 60 % 00 :00 dose, Wed Med ical (w/v) oral 04/11/21 at [facility] suspension 1200, 90 mL Routine sod 2020- No [id number] 1{packe 1 Packet, Univers bicarb-citr 04-11 t} Oral, ity of ic 17:00: 16:48 ONCE, 1 [place] ac-simeth 00 :00 dose, Wed Medic al (E-Z-GAS 04/11/21 at [facility] h II) 1200, 2.21-1.53 Routine gram/4 gram packet 1 Packet fexofenadin Yes Take by Un [place] e HCl 6-23 mouth. ity of (REGINE 14:40: [place] ALLERGY 54 Medical ORAL) Branch fexofenadin Yes Take by Un [place] e HCl 6-23 mouth. ity of (REGINE 14:40: [place] ALLERGY 54 Medical ORAL) Branch fexofenadin Yes Take by Un [place] e HCl 6-23 mouth. ity of (REGINE 14:40: [place] ALLERGY 54 Medical ORAL) Branch fexofenadin Yes Take by Un [place] e HCl 6-23 mouth. ity of (REGINE 14:40: [place] ALLERGY 54 Medical ORAL) Branch fexofenadin Yes Take by Un [place] e HCl 6-23 mouth. ity of (REGINE 14:40: [place] ALLERGY 54 Medical ORAL) Branch fexofenadin Yes Take by Un [place] e HCl 6-23 mouth. ity of (REGINE 14:40: [place] ALLERGY 54 Medical ORAL) Branch fexofenadin Yes Take by Un [place] e HCl 6-23 mouth. ity of (REGINE 14:40: [place] ALLERGY 54 Medical ORAL) Branch meloxicam Yes 15mg Take 15 mg [place] 15 mg 6-23 by mouth ity of tablet 14:35: daily. [address] meloxicam Yes 15mg Take 15 mg [place] 15 mg 6-23 by mouth ity of tablet 14:35: daily. [address] meloxicam Yes 15mg Take 15 mg [place] 15 mg 6-23 by mouth ity of tablet 14:35: daily. [address] meloxicam Yes 15mg Take 15 mg [place] 15 mg 6-23 by mouth ity of tablet 14:35: daily. [address] meloxicam Yes 15mg Take 15 mg [place] 15 mg 6-23 by mouth ity of tablet 14:35: daily. [address] meloxicam Yes 15mg Take 15 mg [place] 15 mg 6-23 by mouth ity of tablet 14:35: daily. [address] meloxicam Yes 15mg Take 15 mg [place] 15 mg 6-23 by mouth ity of tablet 14:35: daily. [address] [facility] Univ ers mg/dose (2 5-18 MG ity of mg/1.5 mL) 00:00: [place]BC[place]ANES [place] PnIj 00 OULY ONCE Medical WEEKLY [facility] 1 Yes INJECT 1 Univ ers mg/dose (2 5-18 MG ity of mg/1.5 mL) 00:00: SUBCUTANES [place] PnIj 00 OULY ONCE Medical WEEKLY Branch [facility] Yes INJECT 1 Univ ers mg/dose (2 5-18 MG ity of mg/1.5 mL) 00:00: SUBCUTANES [place] PnIj 00 OULY ONCE Medical WEEKLY Branch [facility] 1 Yes INJECT 1 Univ ers mg/dose (2 5-18 MG ity of mg/1.5 mL) 00:00: SUBCUTANES [place] PnIj 00 OULY ONCE Medical WEEKLY Branch [facility] 1 Yes INJECT 1 Univ ers mg/dose (2 5-18 MG ity of mg/1.5 mL) 00:00: SUBCUTANES [place] PnIj 00 OULY ONCE Medical WEEKLY Branch [facility] 1 Yes INJECT 1 Univ ers mg/dose (2 5-18 MG ity of mg/1.5 mL) 00:00: SUBCUTANES [place] PnIj 00 OULY ONCE Medical WEEKLY Branch [facility] 1 Yes INJECT 1 Univ ers mg/dose (2 5-18 MG ity of mg/1.5 mL) 00:00: SUBCUTANES [place] PnIj 00 OULY ONCE Medical WEEKLY Branch levothyroxi Yes [id number] 150ug Take 1 Univers ne 150 mcg 4-09 tablet by ity of tablet 00:00: mouth [place] 00 every Medical morning. Branch levothyroxi Yes [id number] 150ug Take 1 Univers ne 150 mcg 4-09 tablet by ity of tablet 00:00: mouth [place] 00 every Medical morning. Branch levothyroxi Yes [id number] 150ug Take 1 Univers ne 150 mcg 4-09 tablet by ity of tablet 00:00: mouth [place] 00 every Medical morning. Branch levothyroxi Yes [id number] 150ug Take 1 Univers ne 150 mcg 4-09 tablet by ity of tablet 00:00: mouth [place] 00 every Medical morning. Branch levothyroxi Yes [id number] 150ug Take 1 Univers ne 150 mcg 4-09 tablet by ity of tablet 00:00: mouth [place] 00 every Medical morning. Branch levothyroxi Yes [id number] 150ug Take 1 Univers ne 150 mcg 4-09 tablet by ity of tablet 00:00: mouth [place] 00 every Medical morning. Branch levothyroxi Yes [id number] 150ug Take 1 Univers ne 150 mcg 4-09 tablet by ity of tablet 00:00: mouth [place] 00 every Medical morning. Branch levothyroxi Yes [id number] 150ug Take 1 Univers ne 150 mcg 4-09 tablet by ity of tablet 00:00: mouth [place] 00 every Medical morning. Branch levothyroxi Yes [id number] 150ug Take 1 Univers ne 150 mcg 4-09 tablet by ity of tablet 00:00: mouth [place] 00 every Medical morning. Branch levothyroxi Yes [id number] 150ug Take 1 Univers ne 150 mcg 4-09 tablet by ity of tablet 00:00: mouth [place] 00 every Medical morning. Branch levothyroxi 2020-0 Yes [id number] 150ug Take 1 Univers ne 150 mcg 2-23 tablet by ity of tablet 00:00: mouth [place] 00 every Medical morning. Branch levothyroxi 2020-0 Yes [id number] 150ug Take 1 Univers ne 150 mcg 2-23 tablet by ity of tablet 00:00: mouth [place] 00 every Medical morning. Branch levothyroxi 2020-0 Yes [id number] 150ug Take 1 Univers ne 150 mcg 2-23 tablet by ity of tablet 00:00: mouth [place] 00 every Medical morning. Branch levothyroxi 2020-0 Yes [id number] 150ug Take 1 Univers ne 150 mcg 2-23 tablet by ity of tablet 00:00: mouth [place] 00 every Medical morning. Branch levothyroxi 2020-0 2020- No [id number] 150ug Take 1 Univers ne 150 mcg 2-23 04-09 tablet by ity of tablet 00:00: 00:00 mouth [place] 00 :00 every Medical morning. Branch LEVOTHYROXI 2020-0 Yes [id number] TAKE 1 Univers NE 150 mcg 9-08 TABLET BY ity of tablet 00:00: MOUTH [place] 00 EVERY DAY Medical IN THE Branch MORNING levothyroxi 2020-0 Yes [id number] 150ug Take 1 Univers ne 150 mcg 9-08 tablet by ity of tablet 00:00: mouth [place] 00 every Medical morning. Branch levothyroxi 2020-0 Yes [id number] 150ug Take 1 Univers ne 150 mcg 9-08 tablet by ity of tablet 00:00: mouth [place] 00 every Medical morning. Branch levothyroxi 2020-0 Yes [id number] 150ug Take 1 Univers ne 150 mcg 9-08 tablet by ity of tablet 00:00: mouth [place] 00 every Medical morning. Branch levothyroxi 2020-0 Yes [id number] 150ug Take 1 Univers ne 150 mcg 9-08 tablet by ity of tablet 00:00: mouth [place] 00 every Medical morning. Branch levothyroxi 2020-0 Yes [id number] 150ug Take 1 Univers ne 150 mcg 9-08 tablet by ity of tablet 00:00: mouth [place] 00 every Medical morning. Branch levothyroxi 2020-0 2020- No [id number] 150ug Take 1 Univers ne 150 mcg 06-20 tablet by ity of tablet 00:00: 00:00 mouth [place] 00 :00 every Medical morning. [place] LEVOTHYROXI 2020-0 2020- No [id number] TAKE 1 Univers NE 150 mcg 06-20 TABLET BY ity of tablet 00:00: 00:00 MOUTH [place] 00 :00 EVERY DAY Medical IN THE [place] MORNING LEVOTHYROXI 2020-0 2020- No [id number] TAKE 1 Univers NE 150 mcg 06-20 TABLET BY ity of tablet 00:00: 00:00 MOUTH [place] 00 :00 EVERY DAY Medical IN THE [facility] LEVOTHYROXI 2020-0 Yes [id number] TAKE 1 Univers NE 150 mcg 8-12 TABLET BY ity of tablet 00:00: MOUTH [place] 00 EVERY DAY Medical IN THE [facility] LEVOTHYROXI 2020-0 2019- No [id number] TAKE 1 Univers NE 150 mcg -06-20 TABLET BY ity of tablet 00:00: 00:00 MOUTH [place] 00 :00 EVERY DAY Medical IN THE [facility] LEVOTHYROXI 2020-0 2020- No [id number] TAKE 1 Univers NE 150 mcg -06-20 TABLET BY ity of tablet 00:00: 00:00 MOUTH [place] 00 :00 EVERY DAY Medical IN THE [facility] spironolact 2020-0 Yes 50mg Take 50 mg Univers one 50 mg 7-27 by mouth ity of tablet 13:51: daily. [address] spironolact 2020-0 Yes 50mg Take 50 mg Univers one 50 mg 7-27 by mouth ity of tablet 13:51: daily. [address] spironolact 2020-0 Yes 50mg Take 50 mg Univers one 50 mg 7-27 by mouth ity of tablet 13:51: daily. [address] spironolact 2020-0 Yes 50mg Take 50 mg Univers one 50 mg 7-27 by mouth ity of tablet 13:51: daily. [address] spironolact 2020-0 Yes 50mg Take 50 mg Univers one 50 mg 7-27 by mouth ity of tablet 13:51: daily. [address] spironolact 2020-0 Yes 50mg Take 50 mg Univers one 50 mg 7-27 by mouth ity of tablet 13:51: daily. [address] spironolact 2020-0 Yes 50mg Take 50 mg Univers one 50 mg 7-27 by mouth ity of tablet 13:51: daily. [address] spironolact 2020-0 Yes 50mg Take 50 mg Univers one 50 mg 7-27 by mouth ity of tablet 13:51: daily. [address] spironolact 2020-0 Yes 50mg Take 50 mg Univers one 50 mg 7-27 by mouth ity of tablet 13:51: daily. [address] spironolact 2020-0 Yes 50mg Take 50 mg Univers one 50 mg 7-27 by mouth ity of tablet 13:51: daily. [address] spironolact 2020-0 Yes 50mg Take 50 mg Univers one 50 mg 7-27 by mouth ity of tablet 13:51: daily. [address] spironolact 2020-0 Yes 50mg Take 50 mg Univers one 50 mg 7-27 by mouth ity of tablet 13:51: daily. [address] spironolact 2020-0 Yes 50mg Take 50 mg Univers one 50 mg 7-27 by mouth ity of tablet 13:51: daily. [address] spironolact 2020-0 Yes 50mg Take 50 mg Univers one 50 mg 7-27 by mouth ity of tablet 13:51: daily. [address] spironolact 2020-0 Yes 50mg Take 50 mg Univers one 50 mg 7-27 by mouth ity of tablet 13:51: daily. [address] spironolact 2020-0 Yes 50mg Take 50 mg Univers one 50 mg 7-27 by mouth ity of tablet 13:51: daily. [address] spironolact 2020-0 Yes 50mg Take 50 mg Univers one 50 mg 7-27 by mouth ity of tablet 13:51: daily. [address] spironolact 2020-0 Yes 50mg Take 50 mg Univers one 50 mg 7-27 by mouth ity of tablet 13:51: daily. [address] spironolact 2020-0 Yes 50mg Take 50 mg Univers one 50 mg 7-27 by mouth ity of tablet 13:51: daily. [address] spironolact 2020-0 Yes 50mg Take 50 mg Univers one 50 mg 7-27 by mouth ity of tablet 13:51: daily. [address] spironolact 2020-0 Yes 50mg Take 50 mg Univers one 50 mg 7-27 by mouth ity of tablet 13:51: daily. [address] spironolact 2020-0 Yes 50mg Take 50 mg Univers one 50 mg 7-27 by mouth ity of tablet 13:51: daily. [address] spironolact 2020-0 Yes 50mg Take 50 mg Univers one 50 mg 7-27 by mouth ity of tablet 13:51: daily. [address] spironolact 2020-0 Yes 50mg Take 50 mg Univers one 50 mg 7-27 by mouth ity of tablet 13:51: daily. [address] spironolact 2020-0 Yes 50mg Take 50 mg Univers one 50 mg 7-27 by mouth ity of tablet 13:51: daily. [address] LEVOTHYROXI 2020-0 Yes [id number] TAKE 1 Univers NE 150 mcg 7-17 TABLET BY ity of tablet 00:00: MOUTH [place] 00 EVERY DAY Medical IN THE [facility] LEVOTHYROXI 2020-0 Yes [id number] TAKE 1 Univers NE 150 mcg 7-17 TABLET BY ity of tablet 00:00: MOUTH [place] 00 EVERY DAY Medical IN THE [facility] LEVOTHYROXI 2020-0 Yes [id number] TAKE 1 Univers NE 150 mcg 7-17 TABLET BY ity of tablet 00:00: MOUTH [place] 00 EVERY DAY Medical IN THE [facility] LEVOTHYROXI 2020-0 Yes [id number] TAKE 1 Univers NE 150 mcg 7-17 TABLET BY ity of tablet 00:00: MOUTH [place] 00 EVERY DAY Medical IN THE [facility] LEVOTHYROXI 2020-0 Yes [id number] TAKE 1 Univers NE 150 mcg 7-17 TABLET BY ity of tablet 00:00: MOUTH [place] 00 EVERY DAY Medical IN THE [facility] LEVOTHYROXI 2020-0 2020- No [id number] TAKE 1 Univers NE 150 mcg 7-17 08-12 TABLET BY ity of tablet 00:00: 00:00 MOUTH [place] 00 :00 EVERY DAY Medical IN THE [facility] levothyroxi 2020-0 Yes [id number] TAKE 1 Univers ne 150 mcg 4-20 TABLET BY ity of tablet 00:00: MOUTH [place] 00 EVERY DAY Medical IN THE [place] MORNING levothyroxi 2020-0 Yes [id number] TAKE 1 Univers ne 150 mcg 4-20 TABLET BY ity of tablet 00:00: MOUTH [place] 00 EVERY DAY Medical IN THE [place] MORNING levothyroxi 2020-0 2020- No [id number] TAKE 1 Univers ne 150 mcg 4-20 07-17 TABLET BY ity of tablet 00:00: 00:00 MOUTH [place] 00 :00 EVERY DAY Medical IN THE [place] MORNING meloxicam 2019- Yes 15mg Take 15 mg [place] 15 mg 3-26 by mouth ity of tablet 19:43: daily. [address] spironolact 2019 Yes 50mg Take 50 mg Univers one 50 mg 3-26 by mouth ity of tablet 19:43: daily. [address] meloxicam Yes 15mg Take 15 mg [place] 15 mg 3-26 by mouth ity of tablet 19:43: daily. [address] spironolact Yes 50mg Take 50 mg Univers one 50 mg 3-26 by mouth ity of tablet 19:43: daily. [address] meloxicam Yes 15mg Take 15 mg [place] 15 mg 3-26 by mouth ity of tablet 19:43: daily. [address] meloxicam Yes 15mg Take 15 mg [place] 15 mg 3-26 by mouth ity of tablet 19:43: daily. [address] meloxicam Yes 15mg Take 15 mg [place] 15 mg 3-26 by mouth ity of tablet 19:43: daily. [address] meloxicam Yes 15mg Take 15 mg [place] 15 mg 3-26 by mouth ity of tablet 19:43: daily. [address] meloxicam Yes 15mg Take 15 mg [place] 15 mg 3-26 by mouth ity of tablet 19:43: daily. [address] meloxicam Yes 15mg Take 15 mg [place] 15 mg 3-26 by mouth ity of tablet 19:43: daily. [address] meloxicam Yes 15mg Take 15 mg [place] 15 mg 3-26 by mouth ity of tablet 19:43: daily. [address] meloxicam Yes 15mg Take 15 mg [place] 15 mg 3-26 by mouth ity of tablet 19:43: daily. [address] meloxicam 2019-0 Yes 15mg Take 15 mg [place] 15 mg 3-26 by mouth ity of tablet 19:43: daily. [address] meloxicam 2019-0 Yes 15mg Take 15 mg Un [place] 15 mg 3-26 by mouth ity of tablet 19:43: daily. [address] meloxicam 2018-0 Yes 15mg Take 15 mg [place] 15 mg 3-26 by mouth ity of tablet 19:43: daily. [address] meloxicam 2019-0 Yes 15mg Take 15 mg [place] 15 mg 3-26 by mouth ity of tablet 19:43: daily. [address] meloxicam 2018- Yes 15mg Take 15 mg [place] 15 mg 3-26 by mouth ity of tablet 19:43: daily. [address] meloxicam Yes 15mg Take 15 mg [place] 15 mg 3-26 by mouth ity of tablet 19:43: daily. [address] meloxicam Yes 15mg Take 15 mg [place] 15 mg 3-26 by mouth ity of tablet 19:43: daily. [address] meloxicam Yes 15mg Take 15 mg [place] 15 mg 3-26 by mouth ity of tablet 19:43: daily. [address] meloxicam 0 Yes 15mg Take 15 mg [place] 15 mg 3-26 by mouth ity of tablet 19:43: daily. [address] meloxicam 2018- Yes 15mg Take 15 mg [place] 15 mg 3-26 by mouth ity of tablet 19:43: daily. [address] meloxicam 0 Yes 15mg Take 15 mg [place] 15 mg 3-26 by mouth ity of tablet 19:43: daily. [address] spironolact 2019-0 Yes 50mg Take 50 mg Univers one 50 mg 3-26 by mouth ity of tablet 19:43: daily. [address] meloxicam 0 Yes 15mg Take 15 mg [place] 15 mg 3-26 by mouth ity of tablet 19:43: daily. [address] spironolact 2018-0 Yes 50mg Take 50 mg Univers one 50 mg 3-26 by mouth ity of tablet 19:43: daily. [address] Branch levothyroxi 2020- No [id number] TAKE 1 Univers ne 150 mcg 3-26 04-20 TABLET BY ity of tablet 00:00: 00:00 MOUTH [place] 00 :00 EVERY DAY Medical IN THE Branch MORNING carvedilol Yes [id number] 3.125mg Take 1 Univers (COREG) 8-02 tablet by ity of 3.125 mg 00:00: mouth 2 [place] tablet 00 (two) Medical times Branch daily with meals. carvedilol Yes [id number] 3.125mg Take 1 Univers (COREG) 8-02 tablet by ity of 3.125 mg 00:00: mouth 2 [place] tablet 00 (two) Medical times Branch daily with meals. carvedilol Yes [id number] 3.125mg Take 1 Univers (COREG) 8-02 tablet by ity of 3.125 mg 00:00: mouth 2 [place] tablet 00 (two) Medical times Branch daily with meals. carvedilol Yes [id number] 3.125mg Take 1 Univers (COREG) 8-02 tablet by ity of 3.125 mg 00:00: mouth 2 [place] tablet 00 (two) Medical times Branch daily with meals. carvedilol Yes [id number] 3.125mg Take 1 Univers (COREG) 8-02 tablet by ity of 3.125 mg 00:00: mouth 2 [place] tablet 00 (two) Medical times Branch daily with meals. carvedilol Yes [id number] 3.125mg Take 1 Univers (COREG) 8-02 tablet by ity of 3.125 mg 00:00: mouth 2 [place] tablet 00 (two) Medical times Branch daily with meals. carvedilol Yes [id number] 3.125mg Take 1 Univers (COREG) 8-02 tablet by ity of 3.125 mg 00:00: mouth 2 [place] tablet 00 (two) Medical times Branch daily with meals. carvedilol Yes [id number] 3.125mg Take 1 Univers (COREG) 8-02 tablet by ity of 3.125 mg 00:00: mouth 2 [place] tablet 00 (two) Medical times Branch daily with meals. carvedilol Yes [id number] 3.125mg Take 1 Univers (COREG) 8-02 tablet by ity of 3.125 mg 00:00: mouth 2 [place] tablet 00 (two) Medical times Branch daily with meals. carvedilol Yes [id number] 3.125mg Take 1 Univers (COREG) 8-02 tablet by ity of 3.125 mg 00:00: mouth 2 [place] tablet 00 (two) Medical times Branch daily with meals. carvedilol Yes [id number] 3.125mg Take 1 Univers (COREG) 8-02 tablet by ity of 3.125 mg 00:00: mouth 2 [place] tablet 00 (two) Medical times Branch daily with meals. carvedilol Yes [id number] 3.125mg Take 1 Univers (COREG) 8-02 tablet by ity of 3.125 mg 00:00: mouth 2 [place] tablet 00 (two) Medical times Branch daily with meals. carvedilol Yes [id number] 3.125mg Take 1 Univers (COREG) 8-02 tablet by ity of 3.125 mg 00:00: mouth 2 [place] tablet 00 (two) Medical times Branch daily with meals. carvedilol Yes [id number] 3.125mg Take 1 Univers (COREG) 8-02 tablet by ity of 3.125 mg 00:00: mouth 2 [place] tablet 00 (two) Medical times Branch daily with meals. carvedilol Yes [id number] 3.125mg Take 1 Univers (COREG) 8-02 tablet by ity of 3.125 mg 00:00: mouth 2 [place] tablet 00 (two) Medical times Branch daily with meals. carvedilol Yes [id number] 3.125mg Take 1 Univers (COREG) 8-02 tablet by ity of 3.125 mg 00:00: mouth 2 [place] tablet 00 (two) Medical times Branch daily with meals. carvedilol Yes [id number] 3.125mg Take 1 Univers (COREG) 8-02 tablet by ity of 3.125 mg 00:00: mouth 2 [place] tablet 00 (two) Medical times Branch daily with meals. carvedilol 0 Yes [id number] 3.125mg Take 1 Univers (COREG) 8-02 tablet by ity of 3.125 mg 00:00: mouth 2 [place] tablet 00 (two) Medical times Branch daily with meals. carvedilol 2016- Yes [id number] 3.125mg Take 1 Univers (COREG) 8-02 tablet by ity of 3.125 mg 00:00: mouth 2 [place] tablet 00 (two) Medical times Branch daily with meals. carvedilol Yes [id number] 3.125mg Take 1 Univers (COREG) 8-02 tablet by ity of 3.125 mg 00:00: mouth 2 [place] tablet 00 (two) Medical times Branch daily with meals. carvedilol 2016- Yes [id number] 3.125mg Take 1 Univers (COREG) 8-02 tablet by ity of 3.125 mg 00:00: mouth 2 [place] tablet 00 (two) Medical times Branch daily with meals. carvedilol Yes [id number] 3.125mg Take 1 Univers (COREG) 8-02 tablet by ity of 3.125 mg 00:00: mouth 2 [place] tablet 00 (two) Medical times Branch daily with meals. carvedilol Yes [id number] 3.125mg Take 1 Univers (COREG) 8-02 tablet by ity of 3.125 mg 00:00: mouth 2 [place] tablet 00 (two) Medical times Branch daily with meals. carvedilol Yes [id number] 3.125mg Take 1 Univers (COREG) 8-02 tablet by ity of 3.125 mg 00:00: mouth 2 [place] tablet 00 (two) Medical times Branch daily with meals. carvedilol Yes [id number] 3.125mg Take 1 Univers (COREG) 8-02 tablet by ity of 3.125 mg 00:00: mouth 2 [place] tablet 00 (two) Medical times Branch daily with meals. carvedilol Yes [id number] 3.125mg Take 1 Univers (COREG) 8-02 tablet by ity of 3.125 mg 00:00: mouth 2 [place] tablet 00 (two) Medical times Branch daily with meals. carvedilol 2016- Yes [id number] 3.125mg Take 1 Univers (COREG) 8-02 tablet by ity of 3.125 mg 00:00: mouth 2 [place] tablet 00 (two) Medical times Branch daily with meals. carvedilol Yes [id number] 3.125mg Take 1 Univers (COREG) 8-02 tablet by ity of 3.125 mg 00:00: mouth 2 [place] tablet 00 (two) Medical times Branch daily with meals. carvedilol Yes [id number] 3.125mg Take 1 Univers (COREG) 8-02 tablet by ity of 3.125 mg 00:00: mouth 2 [place] tablet 00 (two) Medical times [place] daily with meals. simvastatin Yes [id number] 40mg Take 1 Tab Univers (ZOCOR) 40 2-02 by mouth ity o f mg tablet 00:00: at [place] 00 bedtime. Medical Branch simvastatin Yes [id number] 40mg Take 1 Tab Univers (ZOCOR) 40 2-02 by mouth ity o f mg tablet 00:00: at [place] 00 bedtime. Medical Branch simvastatin Yes [id number] 40mg Take 1 Tab Univers (ZOCOR) 40 2-02 by mouth ity o f mg tablet 00:00: at [place] 00 bedtime. Medical Branch simvastatin Yes [id number] 40mg Take 1 Tab Univers (ZOCOR) 40 2-02 by mouth ity o f mg tablet 00:00: at [place] 00 bedtime. Medical Branch simvastatin 2015- Yes [id number] 40mg Take 1 Tab Univers (ZOCOR) 40 2-02 by mouth ity o f mg tablet 00:00: at [place] 00 bedtime. Medical Branch simvastatin Yes [id number] 40mg Take 1 Tab Univers (ZOCOR) 40 2-02 by mouth ity o f mg tablet 00:00: at [place] 00 bedtime. Medical Branch simvastatin 2015- Yes [id number] 40mg Take 1 Tab Univers (ZOCOR) 40 2-02 by mouth ity o f mg tablet 00:00: at [place] 00 bedtime. Medical Branch simvastatin 2015-0 Yes [id number] 40mg Take 1 Tab Univers (ZOCOR) 40 2-02 by mouth ity o f mg tablet 00:00: at [place] 00 bedtime. Medical Branch simvastatin 2015- Yes [id number] 40mg Take 1 Tab Univers (ZOCOR) 40 2-02 by mouth ity o f mg tablet 00:00: at [place] 00 bedtime. [facility] simvastatin 2016-0 Yes [id number] 40mg Take 1 Tab Univers (ZOCOR) 40 2-02 by mouth ity o f mg tablet 00:00: at [place] 00 bedtime. [facility] simvastatin 2016-0 Yes [id number] 40mg Take 1 Tab Univers (ZOCOR) 40 2-02 by mouth ity o f mg tablet 00:00: at [place] 00 bedtime. [facility] simvastatin 2016-0 Yes [id number] 40mg Take 1 Tab Univers (ZOCOR) 40 2-02 by mouth ity o f mg tablet 00:00: at [place] 00 bedtime. [facility] simvastatin 2016-0 Yes [id number] 40mg Take 1 Tab Univers (ZOCOR) 40 2-02 by mouth ity o f mg tablet 00:00: at [place] 00 bedtime. [facility] simvastatin 2016-0 Yes [id number] 40mg Take 1 Tab Univers (ZOCOR) 40 2-02 by mouth ity o f mg tablet 00:00: at [place] 00 bedtime. [facility] simvastatin 2016-0 Yes [id number] 40mg Take 1 Tab Univers (ZOCOR) 40 2-02 by mouth ity o f mg tablet 00:00: at [place] 00 bedtime. [facility] simvastatin 2016-0 Yes [id number] 40mg Take 1 Tab Univers (ZOCOR) 40 2-02 by mouth ity o f mg tablet 00:00: at [place] 00 bedtime. [facility] simvastatin 2016-0 Yes [id number] 40mg Take 1 Tab Univers (ZOCOR) 40 2-02 by mouth ity o f mg tablet 00:00: at [place] 00 bedtime. [facility] simvastatin 2016-0 Yes [id number] 40mg Take 1 Tab Univers (ZOCOR) 40 2-02 by mouth ity o f mg tablet 00:00: at [place] 00 bedtime. [facility] simvastatin 2016-0 Yes [id number] 40mg Take 1 Tab Univers (ZOCOR) 40 2-02 by mouth ity o f mg tablet 00:00: at [place] 00 bedtime. [facility] simvastatin 2016-0 Yes [id number] 40mg Take 1 Tab Univers (ZOCOR) 40 2-02 by mouth ity o f mg tablet 00:00: at [place] 00 bedtime. [facility] simvastatin 2016-0 Yes [id number] 40mg Take 1 Tab Univers (ZOCOR) 40 2-02 by mouth ity o f mg tablet 00:00: at [place] 00 bedtime. [facility] simvastatin Yes [id number] 40mg Take 1 Tab Univers (ZOCOR) 40 2-02 by mouth ity o f mg tablet 00:00: at [place] 00 bedtime. [facility] simvastatin Yes [id number] 40mg Take 1 Tab Univers (ZOCOR) 40 2-02 by mouth ity o f mg tablet 00:00: at [place] 00 bedtime. [facility] simvastatin Yes [id number] 40mg Take 1 Tab Univers (ZOCOR) 40 2-02 by mouth ity o f mg tablet 00:00: at [place] 00 bedtime. [facility] simvastatin Yes [id number] 40mg Take 1 Tab Univers (ZOCOR) 40 2-02 by mouth ity o f mg tablet 00:00: at [place] 00 bedtime. [facility] simvastatin Yes [id number] 40mg Take 1 Tab Univers (ZOCOR) 40 2-02 by mouth ity o f mg tablet 00:00: at [place] [address] bedtime. [facility] Branch simvastatin Yes [id number] 40mg Take 1 Tab Univers (ZOCOR) 40 2-02 by mouth ity o f mg tablet 00:00: at [place] 00 bedtime. [facility] simvastatin Yes [id number] 40mg Take 1 Tab Univers (ZOCOR) 40 2-02 by mouth ity o f mg tablet 00:00: at [place] [address] bedtime. Medical Branch simvastatin Yes [id number] 40mg Take 1 Tab Univers (ZOCOR) 40 2-02 by mouth ity o f mg tablet 00:00: at [place] [address] bedtime. [facility] Vital Signs Vital Name Observation Time Observation Value Comments Source Systolic blood 2021-01-15 19:23:00 118 mm[Hg] Univer sity of pressure [facility] Diastolic blood 2021-01-15 19:23:00 78 mm[Hg] Unive rsity of pressure [facility] Heart rate 2021-01-15 19:23:00 59 /min Universi ty [facility] Respiratory rate 2021-01-15 19:23:00 19 /min Univ ersity of [facility] Body height 2021-01-15 19:23:00 172.7 cm Universi ty of [place] [facility] [place] Body weight 2021-01-15 19:23:00 142.974 kg Universi ty of [facility] BMI 2021-01-15 19:23:00 47.93 kg/m2 Universi ty of [facility] Systolic blood 2020-05-08 13:53:00 138 mm[Hg] Univer sity of pressure [facility] Diastolic blood 2020-05-08 13:53:00 86 mm[Hg] Unive rsity of pressure [facility] Heart rate 2020-05-08 13:53:00 80 /min Universi ty of [facility] Body temperature 2020-05-08 13:53:00 37.28 Jinny [facility] ersity of [facility] Respiratory rate 2020-05-08 13:53:00 18 /min Univ ersity of [facility] Body height 2020-05-08 13:53:00 172.7 cm Universi ty of [facility] Body weight 2020-05-08 13:53:00 127.007 kg Universi ty of [facility] Branch BMI 2020-05-08 13:53:00 42.57 kg/m2 Universi ty of [facility] Oxygen saturation in 2020-05-08 13:53:00 97 /min [facility] Arterial blood by [facility] Pulse oximetry Branch Procedures Procedure Date / Time Performed Performing Clinician [facility] e EXTERNAL PROVIDER 2021-06-01 05:01:00 Doctor Unassigned, No Univ ersity of [place] RECORDS Name Medical Branch EXTERNAL PROVIDER 2021-04-26 05:01:00 Doctor Unassigned, No Univ ersity [facility] RECORDS Name Medical Branch US LIVER 2021-04-11 16:17:00 Jordi [facility] o f [facility] US HEAD NECK 2021-01-22 20:36:53 Demetrio Marion [facility] Encounters Start End Encounter Admission Attending Care Care Encounter Source Date/Time Date/Time Type Type Clinicians Facility Department ID 2022-01-14 2022-01-14 Outpatient Lyly MARION [facility] [id number] Univers 15:00:00 15:00:00 DEMETRIO [id number] ity of [facility] 2022-01-14 2022-01-14 Outpatient Lyly MARION [facility] [id number] Univers 15:00:00 15:00:00 DEMETRIO ity [facility] 2021-06-14 2021-06-14 Outpatient R JORDI [facility] [id number] Univers 11:30:00 11:30:00 SIMRAN [id number] ity [facility] 2021-06-01 2021-06-01 Orders Doctor LEAH 1.2.840.114 [id number] Univers 00:00:00 00:00:00 Only Unassigned, TODD 350.1.13.10 ity of [place] [facility] [id number] Jv as [phone] [address] 2021-05-14 2021-05-14 Outpatient Lyly BACON [facility] [id number] Univers 08:45:00 08:45:00 SIMRAN [id number] ity [facility] 2021-05-14 2021-05-14 Outpatient Lyly BACON [facility] [id number] Univers 08:45:00 08:45:00 SIMRAN [facility] 2021-04-26 2021-04-26 Orders Doctor LEAH 1.2.840.114 [id number] Univers 00:00:00 00:00:00 Only Unassigned, TODD 350.1.13.10 ity of [place] [facility] 4.2.7.2.686 Jv as [phone] [address] 2021-04-25 2021-04-25 Ancillary Monik Fuller [facility] 1 .2.840.114 [id number] Univers 14:57:27 15:47:36 Visit Alfredo White [id number] ity [facility] [id number] [phone] Mt dical [address] 2021-04-25 2021-04-25 Outpatient R [facility] [id number] Univers 15:00:00 15:00:00 [id number] ity [facility] 2021-04-25 2021-04-25 Outpatient R CHRISTOPHER [facility] [id number] Univers 15:00:00 15:00:00 [facility] 2021-04-20 2021-04-20 Telephone [facility] 1.2.840.114 [id number] Univers 00:00:00 00:00:[address] [facility] [id number] it y of [place] [id number] [place] [facility] [phone] [address] Office Building 2021-04-18 2021-04-18 Outpatient R [facility] [id number] Univers 13:40:00 13:40:00 [id number] ity [facility] 2021-04-18 2021-04-18 [facility] [id number] Univers 13:40:00 13:40:00 ALFREDO ity [facility] 2021-04-11 2021-04-11 [facility] 1.2.840.114 [id number] Univers 10:58:11 23:59:00 Encounter Simran SPECIALTY [id number] ity of CARE 4.2.7.2.686 [facility] AT [phone] Mt ron NERI [address] [place] [address] 2021-04-11 2021-04-11 [facility] [id number] Univers 11:30:00 11:30:00 SIMRAN [id number] ity [facility] 2021-04-11 2021-04-11 [facility] 1.2.840.114 [id number] Univers 10:57:50 10:57:50 Encounter Simran SPECIALTY [id number] ity of CARE [id number] [facility] AT [phone] Mt ron NERI [address] [place] [address] 2021-04-11 2021-04-11 Outpatient R JORDI [facility] [id number] Univers 00:00:00 00:00:00 SIMRAN ity [facility] 2021-04-04 2021-04-04 [employer] Vls-Lab [facility] 1.2.840.114 [id number] Univers 13:05:05 13:20:05 Visit Simran Bacon SPECIALTY [id number] ity of CARE 4.2.7.2.686 [facility] HIALEAH AT [phone] Mt ron NERI [address] [facility] 2021-04-04 2021-04-04 Outpatient R JORDI [facility] [id number] Univers 09:00:00 09:00:00 SIMRAN [id number] [facility] 2021-04-04 2021-04-04 Outpatient R JORDI [facility] [id number] Univers 09:00:00 09:00:00 SIMRAN [facility] 2021-01-23 2021-01-23 Telephone [facility] 1..840.114 [id number] Univers 00:00:00 00:00:00 Demetrio Moreno [id number] i ty of [id number] [phone] [facility] [address] [facility] 2021-01-22 2021-01-22 [facility] 1.2.840.114 [id number] Univers 15:04:59 23:59:00 Encounter Demetrio Moreno [id number] ity [facility] 4.2.7.2.686 [place] [phone] [facility] [address] [place] 2021-01-22 2021-01-22 Outpatient R DONI [facility] [id number] Univers 00:00:00 00:00:00 DEMETRIO [id number] [facility] 2021-01-22 2021-01-22 Outpatient R DONI [facility] [id number] Univers 00:00:00 00:00:00 DEMETRIO [facility] 2021-01-19 2021-01-19 Patient [facility] 1.2.840.114 [id number] Univers 00:00:00 00:00:00 Secure Msg Demetrio Moreno 350.1.13.10 ity [facility] [id number] [phone] [facility] [address] [facility] 2021-01-15 2021-01-15 [employer] 2, Adc Lab [facility] 1.2.840.114 [id number] Univers 15:02:26 15:17:26 Visit Doni Demetrio Moreno 350.1.13.10 ity [id number] [phone] Mt dical [facility] [address] [facility] 2021-01-15 2021-01-15 Office [facility] 1.2.840.114 [id number] Univers 14:02:19 14:32:19 Visit Demetrio Tiffanie 350.1.13.10 i ty of [place] [id number] [phone] [facility] [address] [facility] 2021-01-15 2021-01-15 Outpatient R DONI [facility] [id number] Univers 14:00:00 14:00:00 DEMETRIO [id number] [facility] 2021-01-15 2021-01-15 Outpatient R DONI [facility] [id number] Univers 14:00:00 14:00:00 DEMETRIO [facility] 2021-01-01 2021-01-01 Outpatient R DONI [facility] [id number] Univers 10:00:00 10:00:00 DEMETRIO [id number] [facility] 2021-01-01 2021-01-01 Outpatient R DONI [facility] [id number] Univers 10:00:00 10:00:00 [facility] 2020-12-05 2020-12-05 Telephone [facility] 1.2.840.114 [id number] Univers 00:00:00 00:00:00 Demetrio Moreno 350.1.13.10 i ty [id number] [phone] [facility] 2020-12-01 2020-12-01 Refill [facility] 1.2.840.114 [id number] Univers 00:00:00 00:00:00 Demetrio Moreno 350.1.13.10 i ty [place].2.[place] [phone] [address] 2020-09-28 2020-09-28 Refill [facility] 1.2.840.114 [id number] Univers 00:00:00 00:00:00 Demetrio [place] 350.1.13.10 i ty [id number] [phone] [address] 2020-06-20 2020-06-20 Telephone [facility] 1.2.840.114 [id number] Univers 00:00:00 00:00:00 Demetrio [place] 350.1.13.10 i ty [id number] [phone] [address] 2020-06-16 2020-06-16 Refill [facility] 1.2.840.114 [id number] Univers 00:00:00 00:00:00 Demetrio [place] 350.1.13.10 i ty [id number] [phone] [address] 2020-05-29 2020-05-29 Outpatient R DONI [facility] [id number] Univers 16:00:00 16:00:00 DEMETRIO [id number] [facility] 2020-05-29 2020-05-29 Outpatient R DONI [facility] [id number] Univers 16:00:00 16:00:00 DEMETRIO [facility] 2020-05-26 2020-05-26 [facility] [id number] Univers 15:30:00 15:30:00 DEMETRIO [id number] [facility] 2020-05-24 2020-05-24 Refjerrell [facility] 1.2.840.114 [id number] Univers 00:00:00 00:00:00 Demetrio [place] 350.1.13.10 i ty [place] [id number] [phone] [address] 2020-05-09 2020-05-09 Telephone Alondra [facility] 1.2840.114 [id number] Univers 00:00:00 00:00:00 macy Cyntellect 350.1.13.10 it y of [place] 4.2.7.2.686 Jv as Professio [phone] [address] Office Building One 2020-05-09 2020-05-09 Telephone Alondra [facility] 1.2840.114 [id number] Univers 00:00:00 00:00:00 [facility] Cyntellect 350.1.13.10 it y of [place] 4.2.7.2.686 [place]v [place] Professio [phone] [address] Office [facility] One 2020-05-08 2020-05-08 Urgent Pob1, Acute Care Clinic [facility] 1. 2.840.114 [id number] Univers 08:47:49 09:07:49 [facility] 350.1.13.10 ity of [place] 4.2.7.2.686 [place] Professio [phone] [address] Office [facility] One 2020-05-08 2020-05-08 Outpatient R [facility] [id number] Univers 08:40:00 08:40:00 [id number] ity of [facility] 2020-05-08 2020-05-08 Outpatient [facility] [id number] Univers 08:40:00 08:40:00 [facility] 2020-05-08 2020-05-08 Letter Doctor LYNN 1.2.840.114 [id number] Univers 00:00:00 00:00:00 (Out) Unassigned, TODD 350.1.13.10 ity of [place] [facility] 4.2.7.2.686 Jv as [phone] [address] 2020-04-27 2020-04-27 Refjrerell [facility] 1.2.840.114 [id number] Univers 00:00:00 00:00:00 Demetrio Tiffanie 350.1.13.10 i ty [place].2.[place] [phone] [address] 2020-02-14 2020-02-14 Telemedici [facility]quisebreanneE[facility] 1.2.840.114 [id number] Univers 13:10:59 16:24:17 ne Visit Demetrio [place] 350.1.13.10 ity [place] 4.2.7.2.[place] [phone] [address] 2020-02-14 2020-02-14 Telemedici Marquisecapital [facility]ir[facility] 1.2.840.114 [id number] 13:10:59 16:24:17 ne Visit Demetrio [place] 350.1.13.10 [place] 4.2.7.2.686 Professio [phone] [address] 2020-02-14 2020-02-14 Outpatient R DONI [facility] [id number] Univers 15:30:00 15:30:00 [facility] [id number] [facility] 2020-02-14 2020-02-14 Outpatient R DONI [facility] [id number] Univers 15:30:00 15:30:00 [facility] 2020-01-31 2020-01-31 Refill [facility] 1.2.840.114 [id number] Univers 00:00:00 00:00:00 Demetrio Moreno 350.1.13.10 i ty [id number] [phone] [address] 2020-01-31 2020-01-31 Refill [facility] 1.2.840.114 [id number] 00:00:00 00:00:00 Demetrio [place] 350.1.13.10 [place] 4.2.7.2.686 Professio [phone] [address] 2020-01-17 2020-01-17 Outpatient [facility] [id number] Univers 16:00:00 16:00:00 [facility] Results Test Description Test Time Test Comments Results Result [facility] e Comments US LIVER 2021-03-15 1. ?Limited University o f 0 [place] of [place] Me dical 22:08:29 the hepatic Branch parenchyma given body habitus. Nodefinite changes appreciated. 2. ?No cholelithiasis or sonographic evidence of cholecystitis. Preliminary Report Dictated by Resident: Beba Marte I, Yulia Ely MD., have reviewed this study and agree with the abovereport.EXAM: US LIVER HISTORY: 50 years-old Female with morbid obesity. Evaluate for fatty liverdisease . TECHNIQUE: Limited abdominal ultrasound was performed focused on the liver,biliary system, pancreas and spleen. Main portal vein was evaluated withcolor and spectral Doppler imaging. [employer]ic images were obtained forthe record. COMPARISON: None FINDINGS: LIVER: Length: 18.2 cm in craniocaudal dimension.Parenchym a: Limited visualization of the hepatic parenchyma and due topatient's body habitus. No definite parenchymal changes. No focal lesion isdetected.Portal vein: Hepatopetal flow present in the main portal vein.MPV diameter: 1.1 cm in AP diameter at the octavio hepatis GALLBLADDER:No cholelithiasis.Norm al gallbladder wall thickness, 2.0 mm.Negative sonographic Huerta's sign. BILE DUCTS:No intra- or extrahepatic biliary dilatation.Common Duct diameter: 3.0 mm. PANCREAS: Limited visualization due to shadowing from bowel gas. Imagedhead of pancreas is unremarkable. SPLEEN: The spleen is normal in size. It measures 10.4 cm. No focal lesions in thespleen. AORTA:Abdominal aorta is normal in caliber where visualized. Diameter of theproximal abdominal aorta is 2.0 cm. OTHER: Imaged portions of the right kidney are unremarkable. [facility], Radiant Results Inft User - 04/11/2021 5:09 PM CDT EXAM: US LIVERHISTORY: 50 years-old Female with morbid obesity. Evaluate for fatty liverdisease .TECHNIQUE: Limited abdominal ultrasound was performed focused on the liver,biliary system, pancreas and spleen. Main portal vein was evaluated withcolor and spectral Doppler imaging. [employer] images were obtained forthe record.COMPARISON: NoneFINDINGS:LIVER: Length: 18.2 cm in craniocaudal dimension.Parenchym a: Limited visualization of the hepatic parenchyma and due topatient's body habitus. No definite parenchymal changes. No focal lesion isdetected.Portal vein: Hepatopetal flow present in the main portal vein.MPV diameter: 1.1 cm in AP diameter at the octavio hepatisGALLBLADDER: No cholelithiasis.Norm al gallbladder wall thickness, 2.0 mm.Negative sonographic Huerta's sign. BILE DUCTS:No intra- or extrahepatic biliary dilatation.Common Duct diameter: 3.0 mm.PANCREAS: Limited visualization due to shadowing from bowel gas. Imagedhead of pancreas is unremarkable.SPLEEN : The spleen is normal in size. It measures 10.4 cm. No focal lesions in thespleen.AORTA:Abd ominal aorta is normal in caliber where visualized. Diameter of theproximal abdominal aorta is 2.0 cm.OTHER: Imaged portions of the right kidney are unremarkable.IMPRES SION1. Limited visualization of the hepatic parenchyma given body habitus. Nodefinite changes appreciated.2. No cholelithiasis or sonographic evidence of cholecystitis.Preli minary Report Dictated by Resident: Yulia Simon MD., have reviewed this study and agree with the abovereport. US HEAD NECK 2021-01-11 Status post [place] [address] thyroidectomy. No [facility] 20:50:10 recurrent or Branch residual disease to the extentvisualized. No cervical lymphadenopathy. ---- THYROID ULTRASOUND ACR TI-RADS INDICATION: thyroid cancer hx TECHNIQUE: Ultrasound examination of the thyroid and adjacent soft tissueswas performed. FINDINGS: Status post thyroidectomy. No residual or recurrent soft tissue attenuationin the postsurgical bed. Few subcentimeter cervical lymph nodes with preserved fatty francine are seenscattered throughout the adjacent bilateral neck, likely reactive andsimilar prior. [facility], Radiant Results Inft User - 01/22/2021 3:51 PM CDTTHYROID ULTRASOUND ACR TI-RADSINDICATION: thyroid cancer hx TECHNIQUE: Ultrasound examination of the thyroid and adjacent soft tissueswas performed.FINDINGS: Status post thyroidectomy. No residual or recurrent soft tissue attenuationin the postsurgical bed.Few subcentimeter cervical lymph nodes with preserved fatty francine are seenscattered throughout the adjacent bilateral neck, likely reactive andsimilar prior.IMPRESSIONSta tus post thyroidectomy. No recurrent or residual disease to the extentvisualized.No cervical lymphadenopathy.--- -
[2021-10-31] MEDS ORDERED: ASPIRIN 81 MG CHEWABLE TABLET ONE (11:09)
[2021-10-31 11:28] LABS: Urine Blood Trace-intact (Negative); Urine Glucose Negative (Negative); Urine Protein Negative (Negative)
--- NOTE | 2021-10-31 11:33 | RAD REPORT ---
EXAM DESCRIPTION: RAD - Chest Single View - 10/31/2021 11:25 am CLINICAL HISTORY: CHEST PAIN COMPARISON: Chest Single View dated 03/13/2020; Chest Single View dated 05/02/2018; Chest Pa And Lat (2 Views) dated 04/30/2018; Chest Single View dated 04/03/2017 FINDINGS: Lines: None. Lungs: No evidence of edema or pneumonia. Pleural: No significant pleural effusions or pneumothorax. Cardiac: The heart size is within normal limits. Bones: No acute fractures. Other: IMPRESSION: No acute cardiopulmonary disease.
[2021-10-31 11:36] LABS: Absolute Lymphocytes (CBC) 1.9 K/uL (0.7-4.9); Lymphocytes % 23.6 % (15.3-44.8); MPV 8.1 fL (7.6-11.3); RBC Red Blood Cell Count 5.07 M/uL (3.86-4.86)
[2021-10-31 11:40] LABS: Protime INR 1.06
[2021-10-31 12:35] LABS: ALT/SGPT 40 U/L (12-78); AST/SGOT 21 U/L (15-37); Albumin 3.3 g/dL (3.4-5.0); Alkaline Phosphatase 82 U/L (45-117); BUN Blood Urea Nitrogen 11 mg/dL (7-18); Bicarbonate 27 mmol/L (21-32); Bilirubin Direct < 0.1 mg/dL (0-0.2); Bilirubin Total 0.4 mg/dL (0.2-1.0); Glucose Level 90 mg/dL (74-106); Magnesium 2.2 mg/dL (1.8-2.4); NT PRO-BNP 330 pg/mL (<125); Potassium 3.6 mmol/L (3.5-5.1); Sodium Level 139 mmol/L (136-145)
--- NOTE | 2021-10-31 16:46 | RAD REPORT ---
EXAM DESCRIPTION: CT - Chest For Pe Angio - 10/31/2021 4:33 pm CLINICAL HISTORY: Chest pain. Chest pain;SOB COMPARISON: No comparisons TECHNIQUE: CT angiogram of the pulmonary arteries was performed with MIP. All CT scans are performed using dose optimization technique as appropriate and may include automated exposure control or mA/KV adjustment according to patient size. FINDINGS: No evidence of pulmonary thromboembolism. No acute aortic finding demonstrated. The lungs are clear. No significant pericardial or pleural fluid. A few small AP window lymph nodes are seen. No concerning bony finding. Small hiatal hernia. IMPRESSION: No evidence of pulmonary thromboembolism. No acute lung findings.
[2021-10-31] MEDS ORDERED: FUROSEMIDE 20 MG/ 2ML VIAL ONE (17:24)
[2021-10-31] MEDS ORDERED: MORPHINE 4 MG/ML SYR ONE (17:25)
--- NOTE | 2021-10-31 17:25 | ER ---
Nurse's Notes [facility] Name: Nika Low Age: 50 yrs Sex: Female : 1970 Arrival Date: 10/31/2021 Time: 10:25 Bed 18 Private MD: Diagnosis: Chest pain, unspecified Presentation: 10/31 10:46 Chief complaint: Patient states: "I am having chest pressure that started yesterday. I jd3 belch and it seems to relieve some of the pressure, but I do have previous heart issues with rhythms that are tri and bigemini.". Coronavirus screen: At this time, the client does not indicate any symptoms associated with coronavirus-19. Ebola Screen: No symptoms or risks identified at this time. Initial Sepsis Screen: Does the patient meet any 2 criteria? No. Patient's initial sepsis screen is negative. Does the patient have a suspected source of infection? No. Patient's initial sepsis screen is negative. Risk Assessment: Do you want to hurt yourself or someone else? Patient reports no desire to harm self or others. Onset of symptoms was October 31, 2021. 10:46 Method Of Arrival: Ambulatory jd3 10:46 Acuity: GRANT 3 jd3 Triage Assessment: 11:32 General: Appears in no apparent distress. Behavior is calm, cooperative. Pain: perez Complains of pain in chest. 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 - Social history:: Smoking status: Patient denies any tobacco usage or history of. Screenin:32 Abuse screen: Denies threats or abuse. Denies injuries from another. Nutritional perez screening: No deficits noted. Tuberculosis screening: No symptoms or risk factors identified. Fall Risk Assessment: 11:31 Pain: Pain radiates to back Pain began suddenly. Cardiovascular: Reports chest pain, perez shortness of breath, Chest pain is located in anterior. Respiratory: Airway is patent Breath sounds are clear. 15:18 Reassessment: ambulated pt walking about 3 mins O2 sats 96-100%. perez 19:19 Reassessment: I just recv'd word from the lab that the pt is + for Covid. mya 21:31 Reassessment: Patient appears in no apparent distress at this time. Patient denies pain mya at this time. General: Appears in no apparent distress. 21:39 General: I called report on the pt and I called registration to "flip" the pt. She is mya in NAD. Vital Signs: 10:48 BP 141 / 92; Pulse 70; Resp 16 S; Temp 99.0(O); Pulse Ox 95% on R/A; Weight 136.08 kg jd3 (R); Height 5 ft. 8 in. (172.72 cm) (R); Pain 6/10; 11:30 BP 134 / 64; Pulse 83; Resp 18; Pulse Ox 96% on R/A; perez 14:34 BP 121 / 83; Pulse 84; Resp 18; Pulse Ox 96% on R/A; perez 15:18 BP 123 / 75; Pulse 90; Resp 18; Pulse Ox 98% on R/A; perez 19:00 BP 116 / 60; Pulse 77; Resp 18; Temp 98.6; Pulse Ox 100% on R/A; mya 20:00 BP 125 / 62; Pulse 71; Resp 16; Pulse Ox 100% on R/A; Pain 0/10; mya 21:00 BP 118 / 72; Pulse 66; Resp 16; Pulse Ox 100% on R/A; Pain 0/10; mya 10:48 Body Mass Index 45.61 (136.08 kg, 172.72 cm) jd3 ED Course: 10:25 Patient arrived in ED. ds1 10:40 Bay Davis PA is PHCP. cp 10:40 Alber Power MD is Attending Physician. cp 10:47 Triage completed. jd3 10:49 Arm band placed on. EKG completed in triage. Results shown to MD. jd3 11:26 XRAY Chest (1 view) In Process Unspecified. EDMS 11:30 Basic Metabolic Panel Sent. perez 11:32 Patient has correct armband on for positive identification. Bed in low position. perez geological aide on. Pulse ox on. NIBP on. 11:32 No provider procedures requiring assistance completed. Inserted saline lock: 20 gauge perez in right antecubital area, using aseptic technique. Patient maintains SpO2 saturation greater than 95% on room air. 16:33 CT Chest For PE Angio In Process Unspecified. EDMS 17:21 Jeet Tucker MD is Hospitalizing Provider. cp 19:00 geological aide on. Pulse ox on. NIBP on. Noise minimized. Warm blanket given. PO mya fluids given. 19:00 EKG done, by ED staff. mya 19:17 Wendy Banerjee, RN is Primary Nurse. mya 20:26 COVID-19 SARS RT PCR (Document "Date of Onset" if Symptomatic) Sent. mya 21:37 intact. mya Administered Medications: 11:30 Drug: Aspirin Chewable Tablet 324 mg Route: PO; perez 12:30 Follow up: Response: No adverse reaction perez 17:30 Drug: Lasix (furosemide) 20 mg Route: IVP; Site: right antecubital; perez 18:11 Follow up: Response: No adverse reaction perez Outcome: 17:24 Decision to Hospitalize by Provider. cp 19:00 Admitted to accompanied by nurse, via wheelchair. mya 19:00 Condition: stable 22:19 Patient left the ED. bb Signatures: Dispatcher [employer] EDTN Suma Shine ds1 Wendy Rodriguez RN RN bb Bay Davis PA PA cp Davies, Jonathon, RN RN jWendy Tam RN RN mya Laura Guillen RN RN perez
--- NOTE | 2021-10-31 17:25 | EDPHYS ---
Physician Documentation [facility] [place] [place] Name: Nika Low Age: 50 yrs Sex: Female : 1970 Arrival Date: 10/31/2021 Time: 10:25 Bed 18 Private MD: ED Physician Alber Power HPI: 10/31 11:03 This 50 yrs old Female presents to ER via Ambulatory with complaints of Chest cp Pressure. 11:03 Onset: The symptoms/episode began/occurred yesterday. cp 11:03 The patient or guardian reports chest pain that is located primarily in the anterior cp chest wall. 11:03 Onset: yesterday. Associated signs and symptoms: Pertinent positives: lower extremity cp swelling, shortness of breath, Pertinent negatives: abdominal pain, cough, diaphoresis, lower extremity pain, lightheadedness, syncope. The chest pain is described as a pressure. Duration: The patient or guardian reports multiple episodes, that wax and wane. 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 - Social history:: Smoking status: Patient denies any tobacco usage or history of. ROS: 11:05 Constitutional: Negative for body aches, chills, fever, poor PO intake. cp 11:05 Eyes: Negative for injury, pain, redness, and discharge. cp 11:05 ENT: Negative for drainage from ear(s), ear pain, sore throat, difficulty swallowing, difficulty handling secretions. 11:05 Cardiovascular: Positive for chest pain, edema, Negative for palpitations. 11:05 Respiratory: Positive for shortness of breath, on exertion. Negative for cough, wheezing. 11:05 Abdomen/GI: Negative for abdominal pain, nausea, vomiting, and diarrhea. 11:05 Back: Negative for pain at rest, pain with movement. 11:05 Neuro: Negative for altered mental status, headache, syncope, weakness. 11:05 All other systems are negative. Exam: 11:00 ECG was reviewed by the Attending Physician. cp 11:10 Constitutional: The patient appears in no acute distress, alert, awake, cp non-diaphoretic, non-toxic, well developed, well nourished, obese. 11:10 Head/Face: Normocephalic, atraumatic. cp 11:10 Eyes: Periorbital structures: appear normal, Conjunctiva: normal, no exudate, no injection, Sclera: no appreciated abnormality, Lids and lashes: appear normal, bilaterally. 11:10 ENT: External ear(s): are unremarkable, Nose: is normal, Mouth: Lips: moist, Oral mucosa: pink and intact, moist, Posterior pharynx: Airway: no evidence of obstruction, patent. 11:10 Neck: ROM/movement: is normal, is supple, without pain, no range of motions limitations. 11:10 Chest/axilla: Inspection: normal. 11:10 Cardiovascular: Rate: normal, Rhythm: regular, Edema: ankle edema, that is mild. 11:10 Respiratory: the patient does not display signs of respiratory distress, Respirations: normal, no use of accessory muscles, no retractions, labored breathing, is not present, Breath sounds: are clear throughout, no decreased breath sounds, no stridor, no wheezing. 11:10 Abdomen/GI: Inspection: abdomen appears normal, Palpation: abdomen is soft and non-tender, in all quadrants. 11:10 Back: pain, that is mild, ROM is normal. 11:10 Neuro: Orientation: to person, place \\T\\ time. Mentation: is normal, Motor: moves all fours, strength is normal, Sensation: is normal. Vital Signs: 10:48 BP 141 / 92; Pulse 70; Resp 16 S; Temp 99.0(O); Pulse Ox 95% on R/A; Weight 136.08 kg jd3 (R); Height 5 ft. 8 in. (172.72 cm) (R); Pain 6/10; 11:30 BP 134 / 64; Pulse 83; Resp 18; Pulse Ox 96% on R/A; perez 14:34 BP 121 / 83; Pulse 84; Resp 18; Pulse Ox 96% on R/A; perez 15:18 BP 123 / 75; Pulse 90; Resp 18; Pulse Ox 98% on R/A; perez 19:00 BP 116 / 60; Pulse 77; Resp 18; Temp 98.6; Pulse Ox 100% on R/A; mya 20:00 BP 125 / 62; Pulse 71; Resp 16; Pulse Ox 100% on R/A; Pain 0/10; mya 21:00 BP 118 / 72; Pulse 66; Resp 16; Pulse Ox 100% on R/A; Pain 0/10; mya 10:48 Body Mass Index 45.61 (136.08 kg, 172.72 cm) jd3 MDM: 10:41 Patient medically screened. cp 12:00 Differential diagnosis: abnormal EKG, acute myocardial infarction, anxiety, coronary cp artery disease chest wall pain, congestive heart failure pleurisy, pneumonia, pneumothorax, pulmonary embolus, stable angina, unstable angina. 17:10 The patient was given aspirin in the Emergency Department. cp 17:10 Data reviewed: vital signs, nurses notes, lab test result(s), EKG, radiologic studies, cp CT scan, plain films. Counseling: I had a detailed discussion with the patient and/or guardian regarding: the historical points, exam findings, and any diagnostic results supporting the discharge/admit diagnosis, lab results, radiology results, the need for further work-up and treatment in the hospital. Physician consultation: Jeet Tucker MD was called at 17:10, was contacted at 17:10, regarding admission, to the telemetry unit. patient's condition, would like consultation with Dr. Stone. 10/31 10:53 Order name: Basic Metabolic Panel cp 10/31 10:53 Order name: CBC with Diff; Complete Time: 12:30 cp 10/31 13:42 Interpretation: Normal except: RBC 5.07. cp 10/31 10:53 Order name: LFT's; Complete Time: 13:41 cp 10/31 13:41 Interpretation: Normal except: ALB 3.3; GLOB 3.7; A/G 0.9. cp 10/31 10:53 Order name: Magnesium; Complete Time: 13:41 cp 10/31 10:53 Order name: NT PRO-BNP; Complete Time: 13:41 cp 10/31 13:41 Interpretation: Abnormal: NT PRO-BNP 330. cp 10/31 10:53 Order name: PT-INR; Complete Time: 12:30 cp 10/31 10:53 Order name: Troponin HS; Complete Time: 13:41 cp 10/31 10:53 Order name: Basic Metabolic Panel; Complete Time: 13:41 EDTX 10/31 13:42 Interpretation: Abnormal: GFR 89. cp 10/31 11:28 Order name: Urine Dipstick-Ancillary; Complete Time: 12:30 EDTX 10/31 17:50 Order name: Basic Metabolic Panel [facility] 10/31 17:50 Order name: Basic Metabolic Panel [facility] 10/31 17:50 Order name: Troponin High Sensitivity [facility] 10/31 17:50 Order name: Troponin High Sensitivity [facility] 10/31 17:50 Order name: Troponin High Sensitivity [facility] 10/31 10:41 Order name: EKG; Complete Time: 10:41 10/31 10:41 Order name: EKG - Nurse/Tech; Complete Time: 10:57 10/31 10:41 Order name: Urine Dipstick-Ancillary (obtain specimen); Complete Time: 11:30 10/31 10:41 Order name: Urine Test (obtain specimen); Complete Time: 11:30 10/31 10:53 Order name: XRAY Chest (1 view); Complete Time: 12:30 10/31 10:53 Order name: Cardiac monitoring; Complete Time: 11:30 10/31 16:09 Order name: CT Chest For PE Angio; Complete Time: 16:55 10/31 16:55 Interpretation: Report reviewed. 10/31 17:40 Order name: Diet Heart Healthy; Complete Time: 17:40 10/31 17:50 Order name: Echo with Doppler [facility] 10/31 17:50 Order name: EKG Electrocardiogram [facility] 10/31 17:50 Order name: EKG Electrocardiogram; Complete Time: 21:31 [facility] 10/31 18:06 Order name: COVID-19 SARS RT PCR (Document "Date of Onset" if Symptomatic) 10/31 19:19 Order name: SARS-COV-2 RT PCR [facility] 10/31 10:53 Order name: IV Saline Lock; Complete Time: 11:30 cp 10/31 10:53 Order name: Labs collected and sent; Complete Time: 11:30 cp 10/31 10:53 Order name: O2 Per Protocol; Complete Time: 11:30 cp 10/31 10:53 Order name: O2 Sat Monitoring; Complete Time: 11:30 cp 10/31 11:44 Order name: Labs - recollect needed: recollect green top; Complete Time: 15:17 bd 10/31 13:43 Order name: Misc. Order: ambulate patient with pulse ox; Complete Time: 15:17 cp EC:00 Rate is 72 beats/min. Rhythm is regular. IN interval is prolonged at 202 msec. QRS cp interval is normal. No Q waves. T waves are Inverted in lead aVR. Interpreted by me. Reviewed by me. Administered Medications: 11:30 Drug: Aspirin Chewable Tablet 324 mg Route: PO; perez 12:30 Follow up: Response: No adverse reaction perez 17:30 Drug: Lasix (furosemide) 20 mg Route: IVP; Site: right antecubital; perez 18:11 Follow up: Response: No adverse reaction perez Disposition: 11/01 07:13 Co-signature as Attending Physician, Alber Power MD I agree with the assessment and kdr plan of care. Disposition Summary: 10/31/21 17:24 Hospitalization Ordered Hospitalization Status: Observation cp Provider: Jeet Tucker cp Condition: Stable cp Problem: new cp Symptoms: have improved cp Bed/Room Type: Standard cp Location: Telemetry/MedSurg (observation)(10/31/21 20:45) eb1 Room Assignment: [facility](10/31/21 20:50) eb Diagnosis - Chest pain, unspecified cp Forms: - Medication Reconciliation Form cp - SBAR form cp Signatures: Dispatcher [employer] EDTonja Trevino bd Alber Power MD MD kdr Page, Corey, PA PA cp Escobar Ocampo RN RN jd3 Basinger, Emily, RN RN eb1 Au-StagerLaura RN RN perez Corrections: (The following items were deleted from the chart) 10/31 18:03 17:24 Telemetry/MedSurg (observation) cp bd 18:03 17:24 cp bd 20:45 18:03 [facility] ER HOLD bd eb1 20:45 18:03 ERHOLD- bd eb1 20:50 20:45 407 eb1 eb1
[2021-10-31] MEDS ORDERED: ONDANSETRON 4 MG/2 ML VIAL IV PRN (17:44)
[2021-11-01 00:22] VITALS: BMI 48.4
[2021-11-01 06:43] LABS: Absolute Lymphocytes (CBC) 1.7 K/uL (0.7-4.9); Hematocrit 44.6 % (36.0-45.0); Lymphocytes % 20.7 % (15.3-44.8); RBC Red Blood Cell Count 5.03 M/uL (3.86-4.86)
[2021-11-01 06:58] LABS: BUN Blood Urea Nitrogen 8 mg/dL (7-18); Bicarbonate 28 mmol/L (21-32); Glucose Level 96 mg/dL (74-106); Potassium 3.6 mmol/L (3.5-5.1); Sodium Level 140 mmol/L (136-145)
[2021-11-01] MEDS ORDERED: ASPIRIN EC 81 MG TAB PO SCH (09:00)
[2021-11-01] MEDS ORDERED: FUROSEMIDE 20 MG/ 2ML VIAL IV SCH (09:00)
[2021-11-01] MEDS ORDERED: HOME MED 1 EA UNK (Omeprazole [Omeprazole] 20 MG Capsule.Dr) PO PRN (11:04)
[2021-11-01] MEDS ORDERED: PANTOPRAZOLE 40MG TABLET PO PRN (11:14)
--- NOTE | 2021-11-01 11:35 | P.DS ---
Admission Date: 10/31/21 Discharge Date: 11/01/21 Primary Care Provider: Dr. Tucker Disposition: ROUTINE DISCHARGE Discharge Condition: GOOD Reason for Admission: Chest pain Consultations: none Procedures: COVID Positive CXR: COMPARISON: Chest Single View dated 03/13/2020; Chest Single View dated 05/02/2018; Chest Pa And Lat (2 Views) dated 04/30/2018; Chest Single View dated 04/03/2017 FINDINGS: Lines: None. Lungs: No evidence of edema or pneumonia. Pleural: No significant pleural effusions or pneumothorax. Cardiac: The heart size is within normal limits. Bones: No acute fractures. IMPRESSION: No acute cardiopulmonary disease. CT chest: COMPARISON: No comparisons TECHNIQUE: CT angiogram of the pulmonary arteries was performed with MIP. All CT scans are performed using dose optimization technique as appropriate and may include automated exposure control or mA/KV adjustment according to patient size. FINDINGS: No evidence of pulmonary thromboembolism. No acute aortic finding demonstrated. The lungs are clear. No significant pericardial or pleural fluid. A few small AP window lymph nodes are seen. No concerning bony finding. Small hiatal hernia. IMPRESSION: No evidence of pulmonary thromboembolism. No acute lung findings. Medical Problem List: Chest pain likely related to COVID-19, asymptomatic Hypertension Hyperlipidemia Hypothyroidism with prior thyroidectomy Obstructive sleep apnea, uses CPAP at night GERD with hiatal hernia Prediabetes Allergic rhinitis Obesity, BMI 48 Brief History of Present Illness: 50-year-old female with history of prediabetes, obstructive sleep apnea, GERD, hypertension, hyperlipidemia. Patient presented with chest pain. She reports that she was tested positive for COVID-19 on October 10. She had been taking some [id number] medication. She got tested there after which was negative. She then reported some chest pain recently. She denied any major shortness of breath. She denied any cough, congestion. She came to the ER for further evaluation. In the ER she was evaluated. Chest x-ray unremarkable. CT chest unremarkable. Troponin unremarkable. Patient was admitted for observation. I was asked to see the patient by PCPDr. Tucker due to her COVID status. Past medical history: Prediabetes Hyperlipidemia Hypertension Hypothyroidism Obstructive sleep apnea Obesity GERD with hiatal hernia Allergic rhinitis Surgical history: Hysterectomy Thyroidectomy Family history: Noncontributory Social history: She does not smoke, drink. She currently works. Allergies: Caffeine, pseudoephedrine, Z-Mariano Review of systems: 12 system review reviewed. Patient with recent diagnosis of COVID-19. Has been using Mucinex as needed for congestion. No major cough, shortness of breath at this time. Chest pain note is as above. Hospital Course: Patient presented with chest pain. Patient was evaluated in the emergency room. Patient was admitted for observation. Cardiac enzymes unremarkable. Chest x- ray unremarkable. CT chest showed no evidence of pulmonary embolism or pneumonia. Patient has done well. Patient was positive for COVID-19. She tested positive in October 10. Patient without any major symptoms. No need for intervention at this time. Patient will be discharged home. Patient may continue with Mucinex as needed for congestion. Patient will continue with CDC guidelines on COVID-19 including facemask use, handwashing and social distancing. She may return to work after 10 days. She may continue with aspirin 81 mg daily. Recommend follow-up with her PCP in 14 days. Recommend follow-up with her back padder in 1 to 2 weeks to follow-up this hospitalizat ion. Patient may require further cardiac outpatient work-up if chest pain persist. Case discussed with her PCP prior to discharge. Patient with prediabetes. Overall stable. At discharge we will continue with Ozempic as directed. Recommend to maintain blood sugar less than 140 fasting and less than 200 after meals. Recommend to recheck hemoglobin A1c every 3 months to monitor her progress. Follow-up with PCP to further monitor and address. Patient with hypertension. Overall stable. At discharge patient will continue with carvedilol 6.25 mg 1 pill twice daily. Recommend to maintain blood pressure less than 130/80. Further adjustment can be done by her PCP. Patient with hyperlipidemia. At discharge patient will continue with Zocor 20 mg daily. Patient with hypothyroidism with prior thyroidectomy. At discharge patient will continue with levothyroxine 150 mcg daily. Patient with allergic rhinitis. At discharge we will continue with Angelica 180 mg daily and Flonase 1 spray per nostril daily. Patient with obstructive sleep apnea. Patient uses CPAP at night. She will continue with CPAP. Patient with GERD and hiatal hernia. At discharge recommend to continue Prilosec 20 mg daily. Recommend to limit use of nonsteroidal anti- inflammatories. Patient takes meloxicam. Recommend to discontinue meloxicam. Patient with obesity. Lifestyle modification education provided. Vital Signs/Physical Exam: Temp Pulse Resp BP Pulse Ox 96.5 F L 68 18 127/73 97 11/01/21 08:00 11/01/21 08:59 11/01/21 08:00 11/01/21 08:59 11/01/21 08:00 General: Alert, In no apparent distress, Oriented x3, Cooperative HEENT: Atraumatic Neck: Supple Respiratory: Clear to auscultation bilaterally, Normal air movement Cardiovascular: Regular rate/rhythm Gastrointestinal: Normal bowel sounds, No ascites, No tenderness, No masses, No rebound, No guarding Musculoskeletal: No erythema, No tenderness, No warmth Integumentary: No tenderness/swelling, No erythema, No warmth, No cyanosis Neurological: Normal speech, Normal strength at 5/5 x4 extr, Normal tone, Normal affect Laboratory Data at Discharge: WBC 8.30 K/uL (4.3-10.9) 11/01/21 06:03 Hgb 14.8 g/dL (12.0-15.0) 11/01/21 06:03 Hct 44.6 % (36.0-45.0) 11/01/21 06:03 Plt Count 303 K/uL (152-406) 11/01/21 06:03 PT 12.2 SECONDS (9.5-12.5) 10/31/21 11:16 INR 1.06 10/31/21 11:16 Sodium 140 mmol/L (136-145) 11/01/21 06:03 Potassium 3.6 mmol/L (3.5-5.1) 11/01/21 06:03 BUN 8 mg/dL (7-18) 11/01/21 06:03 Creatinine 0.67 mg/dL (0.55-1.3) 11/01/21 06:03 Glucose 96 mg/dL (74-106) 11/01/21 06:03 Magnesium 2.2 mg/dL (1.8-2.4) 10/31/21 12:04 Total Bilirubin 0.4 mg/dL (0.2-1.0) 10/31/21 12:04 AST 21 U/L (15-37) 10/31/21 12:04 ALT 40 U/L (12-78) 10/31/21 12:04 Alkaline Phosphatase 82 U/L (45-117) 10/31/21 12:04 Home Medications: Simvastatin [Zocor*] 20 mg PO BEDTIME 06/04/15 Levothyroxine [Synthroid*] 0.15 mg PO DAILYAC #60 tab 06/05/15 carvediloL [Coreg*] 6.25 mg PO BID #60 tab 06/05/15 Aspirin [Aspirin EC 81 MG] 81 mg PO DAILY #90 tablet. 11/01/21 Fexofenadine HCl [Angelica Allergy] 180 mg PO DAILY 11/01/21 Omeprazole 20 mg PO DAILY #30 11/01/21 Semaglutide [Ozempic] 1 mg SQ 1X 11/01/21 Triprolidine/PE/Dm/Acetamin/GG [Mucinex Sinusmax Day-Nt Caplet] 1 tab PO Q6H PRN 11/01/21 New Medications: Aspirin [Aspirin EC 81 MG] 81 mg PO DAILY #90 tablet. Omeprazole 20 mg PO DAILY #30 Physician Discharge Instructions: Patient presented with chest pain. Patient was evaluated in the emergency room. Patient was admitted for observation. Cardiac enzymes unremarkable. Chest x- ray unremarkable. CT chest showed no evidence of pulmonary embolism or pneumonia. Patient has done well. Patient was positive for COVID-19. She tested positive in October 10. Patient without any major symptoms. No need for intervention at this time. Patient will be discharged home. Patient may co ntinue with Mucinex as needed for congestion. Patient will continue with CDC guidelines on COVID-19 including facemask use, handwashing and social distancing. She may return to work after 10 days. She may continue with aspirin 81 mg daily. Recommend follow-up with her PCP in 14 days. Recommend follow-up with her back padder in 1 to 2 weeks to follow-up this hospitalization. Patient may require further cardiac outpatient work-up if chest pain persist. Case discussed with her PCP prior to discharge. Patient with prediabetes. Overall stable. At discharge we will continue with Ozempic as directed. Recommend to maintain blood sugar less than 140 fasting and less than 200 after meals. Recommend to recheck hemoglobin A1c every 3 months to monitor her progress. Follow-up with PCP to further monitor and address. Patient with hypertension. Overall stable. At discharge patient will continue with carvedilol 6.25 mg 1 pill twice daily. Recommend to maintain blood pressure less than 130/80. Further adjustment can be done by her PCP. Patient with hyperlipidemia. At discharge patient will continue with Zocor 20 mg daily. Patient with hypothyroidism with prior thyroidectomy. At discharge patient will continue with levothyroxine 150 mcg daily. Patient with allergic rhinitis. At discharge we will continue with Angelica 180 mg daily and Flonase 1 spray per nostril daily. Patient with obstructive sleep apnea. Patient uses CPAP at night. She will continue with CPAP. Patient with GERD and hiatal hernia. At discharge recommend to continue Prilosec 20 mg daily. Recommend to limit use of nonsteroidal anti- inflammatories. Patient takes meloxicam. Recommend to discontinue meloxicam. Patient with obesity. Lifestyle modification education provided. Diet: ADA Activity: Ad cory Followup: Jeet Tucker MD [Primary Care Provider] - Time spent managing pt's care (in minutes): 55
[2021-11-01 13:20] VITALS: BP 132/90; TEMP 98.3; O2SAT 95
[2021-11-01] MEDS ORDERED: ATORVASTATIN 10 MG TAB PO SCH (21:00)
[2021-11-01] MEDS ORDERED: HOME MED 1 EA UNK (Simvastatin [Zocor*] 40 MG Tablet) PO SCH (21:00)
[2021-11-01] MEDS ORDERED: carvediloL 6.25 MG TAB PO SCH (21:00)
[2021-11-02] MEDS ORDERED: LEVOTHYROXINE SOD 0.075 MG TAB PO SCH (06:30)
--- NOTE | 2021-11-02 07:19 | ECHO ---
HEIGHT: 5 ft 8 in WEIGHT: 318 lb 11.2 oz DATE OF STUDY: 11/01/[address]: Bay Davis PAC 2-DIMENSIONAL: YES M.MODE: YES DOPPLER: YES COLOR FLOW: YES TDS: NO PORTABLE: NO DEFINITY: NO BUBBLE STUDY: NO DIAGNOSIS: CHEST PAIN CARDIAC HISTORY: CATHERIZATION: NO SURGERY: NO PROSTHETIC VALVE: NO PACEMAKER: NO MEASUREMENTS (cm) DIASTOLIC (NORMALS) SYSTOLIC (NORMALS) IVSd 1.1 (0.6-1.2) LA Diam 3.2 (1.9-4.0) LVEF 60-65% LVIDd 3.1 (3.5-5.7) LVIDs 1.7 (2.0-3.5) %FS 46% LVPWd 1.1 (0.6-1.2) Ao Diam 2.6 (2.0-3.7) 2 DIMENSIONAL ASSESSMENT: RIGHT ATRIUM: NORMAL LEFT ATRIUM: NORMAL RIGHT VENTRICLE: NORMAL LEFT VENTRICLE: NORMAL TRICUSPID VALVE: NORMAL MITRAL VALVE: NORMAL PULMONIC VALVE: NORMAL AORTIC VALVE: NORMAL PERICARDIAL EFFUSION: NONE AORTIC ROOT: NORMAL LEFT VENTRICULAR WALL MOTION: NORMAL DOPPLER/COLOR FLOW: NORMAL COMMENTS: NORMAL LEFT VENTRICULAR EJECTION FRACTION 60-65%. NORMAL DIASTOLIC FUNCTION. NORMAL WALL MOTION. TECHNOLOGIST: Terrence NICOLE
[2021-11-02] MEDS ORDERED: FEXOFENADINE 180 MG TAB PO SCH (09:00)
[2021-11-04] MEDS ORDERED: HOME MED 1 EA UNK (Semaglutide [Ozempic] 1 MG/0.75 ML Pen.Injctr) SQ SCH (09:00)
== END 2021-11-01 13:40 | disposition home or self-care (01) ==
LOC: ER 10:22 → ERHOLD 17:49 → 4TH 21:38
PROVIDERS: ADMIT Family Medicine; ATTEND Family Medicine
DX: R07.9 Chest pain, unspecified (principal); U07.1 COVID-19; I10 Essential (primary) hypertension; E78.5 Hyperlipidemia, unspecified; E89.0 Postprocedural hypothyroidism; G47.33 Obstructive sleep apnea (adult) (pediatric); Z99.81 Dependence on supplemental oxygen; R73.03 Prediabetes; K21.9 Gastro-esophageal reflux disease without esophagitis; K44.9 Diaphragmatic hernia without obstruction or gangrene; J30.9 Allergic rhinitis, unspecified; E66.9 Obesity, unspecified; Z68.42 Body mass index [BMI] 45.0-49.9, adult; Z71.3 Dietary counseling and surveillance; Z88.8 Allergy status to other drugs, medicaments and biological substances; Z91.09 Other allergy status, other than to drugs and biological substances; Z90.710 Acquired absence of both cervix and uterus
CPT/HCPCS: 93005 ×2; 93306; 85025 ×2; 80048 ×2; 36415; 83735; 85610; 80076; 81003; 84484 ×3; 83880; 71275; 71045; 96374; 99285; U0003; Q9967; J1940 ×2; G0378 ×2

== ENCOUNTER 2023-03-03 11:20 | Emergency (ER) | payer OTHER, BC ==
--- OUTSIDE RECORDS SUMMARY | 2023-03-03 11:26 | XMS REPORT | Continuity of Care Document ---
:1970 Author Organization [facility] t Address [address] [place] [address] [place] [id number] Care Team Providers Name Role Phone HSA GAABY A Primary Care Physician Unavailable DEMETRIO MARION Attending Clinician Unavailable Doctor Unassigned, [place] Attending Clinician Unavailable SIMRAN BACON Attending Clinician Unavailable Star Gao PT, Monik Attending Clinician Unavailable Alfredo White MD Attending Clinician ALFREDO WHITE Attending Clinician Unavailable Liat Mello MD Attending Clinician Simran Cesar Attending Clinician Vls-Lab Attending Clinician Unavailable Demetrio Marion MD Attending Clinician 2, [facility] Attending Clinician Unavailable Karly Rascon Attending Clinician Pob1, [facility] Attending Clinician Unavailable KARLY CANTU Attending Clinician Unavailable Payers Payer Name Policy Type Policy Number Effective Date Expiration Date S [facility] - [id number] 2015 00:00:00 OUT OF STATE Problems Condition Condition Condition Status Onset Resolution Last Treating Co mments Source Name Details Category Date Date Treatment Clinician Date Postsurgic Postsurgic Disease Active U pearl youssef 8- ity of [place]othyro[place] H. pylori H. pylori Disease Active 2009-10 Uni vers infection infection 2- ity of 00:00: [place] 00 Medical Branch Helicobact Helicobact Disease Active 2009-10 Overview : Univers er pylori er pylori 10-31 Form[place] i ty of infection infection 00:00: [place] of this [place] note Medical might be Branch different from the original. 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 CLIFFORD CLIFFORD Disease Active Univers (obstructi (obstructi it y of ve sleep ve sleep [place] apnea) apnea) Medical Branch Allergies, Adverse Reactions, Alerts Allergy Allergy Status Severity Reaction(s) Onset Inactive Treating Comm ents Source Name Type Date Date Clinician Sudafed Propensi Active Unknown - pressure Un marleni Cough ty to See comments 04-04 to chest it y of adverse 00:00: [place] reaction Medical s Branch SUDAFED DRUG Active Unknown-Cmnt Uni vers COUGH 6 ity of 00:00: [place] [facility] CODEINE DRUG Active Palpitations Uni vers INGREDI 06-21 ity of 00:00: [place] [facility] Codeine Propensi Active Palpitations U nivers ty to 06-21 ity of adverse 00:00: [place] reaction Medical s Branch Social History Social Habit Start Date Stop Date Quantity Comments Source Exposure to Not sure [facility] SARS-CoV-2 [place] Medical (event) Branch Tobacco use and 2021-04-04 2021-04-04 Never used Universit y of exposure 00:00:00 00:00:00 [facility] Alcohol intake 2021-04-04 2021-04-04 Current University of 00:00:00 00:00:00 non-drinker of [facility] alcohol Branch (finding) Sex Ass[birth year] At [birth year] Universit y of 00:00:00 00:00:00 [facility] Branch Smoking Status Start Date Stop Date Source Never smoker [facility] Medical Branch Medications Ordered Filled Start Stop Current Ordering Indication Dosage Frequency Signature Comments Components Source Medication Medication Date Date Medication? Clinician (SIG) Name Name barium 2020- No [id number] 90mL 90 mL, [facility] ers sulfate 04-11 Oral, ity of (E-Z-HD 17:00: 16:47 ONCE, 1 [place] BARIUM) 98 00 :00 dose, Wed Medi shahla % oral 04/11/21 at [place] suspension 1200, 90 mL Routine barium 2020- No [id number] 90mL 90 mL, [facility] ers sulfate 04-11 Oral, ity of (LIQUID E-Z 17:00: 16:48 ONCE, 1 mery PADELISA) 60 % 00 :00 dose, Wed Med ical (w/v) oral 04/11/21 at [facility] suspension 1200, 90 mL Routine sod 2020- No [id number] 1{packe 1 Packet, Univers bicarb-citr 04-11 t} Oral, ity of ic 17:00: 16:48 ONCE, 1 [place] ac-simeth 00 :00 dose, Wed Medic al (E-Z-GAS 04/11/21 at [facility] h II) 1200, 2.21-1.53 Routine gram/4 gram packet 1 Packet fexofenadin Yes Take by Uni vers e HCl 6-23 mouth. ity of (REGINE 14:40: [place] ALLERGY 54 Medical ORAL) Branch fexofenadin Yes Take by Uni vers e HCl 6-23 mouth. ity of (REGINE 14:40: [place] ALLERGY 54 Medical ORAL) Branch fexofenadin Yes Take by Uni vers e HCl 6-23 mouth. ity of (REGINE 14:40: [place] ALLERGY 54 Medical ORAL) Branch fexofenadin Yes Take by Uni vers e HCl 6-23 mouth. ity of (REGINE 14:40: [place] ALLERGY 54 Medical ORAL) Branch fexofenadin Yes Take by Uni vers e HCl 6-23 mouth. ity of (REGINE 14:40: [place] ALLERGY 54 Medical ORAL) Branch fexofenadin Yes Take by Uni vers e HCl 6-23 mouth. ity of (REGINE 14:40: [place] ALLERGY 54 Medical ORAL) Branch fexofenadin Yes Take by Uni vers e HCl 6-23 mouth. ity of (REGINE 14:40: [place] ALLERGY 54 Medical ORAL) Branch meloxicam Yes 15mg Take 15 mg Un [place] 15 mg 6-23 by mouth ity of tablet 14:35: daily. [address] meloxicam Yes 15mg Take 15 mg [place] 15 mg 6-23 by mouth ity of tablet 14:35: daily. [address] meloxicam Yes 15mg Take 15 mg [place] 15 mg 6-23 by mouth ity of tablet 14:35: daily. [address] meloxicam Yes 15mg Take 15 mg [place] 15 mg 6-23 by mouth ity of tablet 14:35: daily. [address] meloxicam Yes 15mg Take 15 mg [place] 15 mg 6-23 by mouth ity of tablet 14:35: daily. [address] meloxicam Yes 15mg Take 15 mg [place] 15 mg 6-23 by mouth ity of tablet 14:35: daily. [address] meloxicam Yes 15mg Take 15 mg [place] 15 mg 6-23 by mouth ity of tablet 14:35: daily. [address] OZEMPIC 1 Yes INJECT 1 Univ ers [...] OULY ONCE Medical WEEKLY Branch levothyroxi Yes [id number] 150ug Take 1 Univers ne 150 mcg 4-09 tablet by ity of tablet 00:00: mouth [place] 00 every Medical morning. Branch levothyroxi Yes [id number] 150ug Take 1 Univers ne 150 mcg 4-09 tablet by ity of tablet 00:00: mouth [place] 00 every Medical morning. Branch levothyroxi Yes [id number] 150ug Take 1 Univers ne 150 mcg 4-09 tablet by ity of tablet 00:00: mouth [place] 00 every Medical morning. Branch levothyroxi Yes [id number] 150ug Take 1 Univers ne 150 mcg 4-09 tablet by ity of tablet 00:00: mouth [place] 00 every Medical morning. Branch levothyroxi Yes [id number] 150ug Take 1 Univers ne 150 mcg 4-09 tablet by ity of tablet 00:00: mouth [place] 00 every Medical morning. Branch levothyroxi Yes [id number] 150ug Take 1 Univers ne 150 mcg 4-09 tablet by ity of tablet 00:00: mouth [place] 00 every Medical morning. Branch levothyroxi Yes [id number] 150ug Take 1 Univers ne 150 mcg 4-09 tablet by ity of tablet 00:00: mouth [place] 00 every Medical morning. Branch levothyroxi Yes [id number] 150ug Take 1 Univers ne 150 mcg 4-09 tablet by ity of tablet 00:00: mouth [place] 00 every Medical morning. Branch levothyroxi 2020-0 Yes [id number] 150ug Take 1 Univers ne 150 mcg 4-09 tablet by ity of tablet 00:00: mouth [place] 00 every Medical morning. Branch levothyroxi 2020-0 Yes [id number] 150ug Take 1 Univers ne 150 mcg 4-09 tablet by ity of tablet 00:00: mouth [place] 00 every Medical morning. Branch levothyroxi 2020-0 Yes [id number] 150ug Take 1 Univers ne 150 mcg 2-23 tablet by ity of tablet 00:00: mouth [place] 00 every Medical morning. Branch levothyroxi 2020-0 Yes [id number] 150ug Take 1 Univers ne 150 mcg 2-23 tablet by ity of tablet 00:00: mouth [place] 00 every Medical morning. Branch levothyroxi 2020-0 Yes [id number] 150ug Take 1 Univers ne 150 mcg 2-23 tablet by ity of tablet 00:00: mouth [place] 00 every Medical morning. Branch levothyroxi 2020-0 Yes [id number] 150ug Take 1 Univers ne 150 mcg 2-23 tablet by ity of tablet 00:00: mouth [place] 00 every Medical morning. Branch levothyroxi 2020-0 2020- No [id number] 150ug Take 1 Univers ne 150 mcg 2-23 04-09 tablet by ity of tablet 00:00: 00:00 mouth [place] 00 :00 every Medical morning. Branch LEVOTHYROXI 2020-0 Yes [id number] TAKE 1 Univers NE 150 mcg 9-08 TABLET BY ity of tablet 00:00: MOUTH [place] 00 EVERY DAY Medical IN THE Branch MORNING levothyroxi 2020-0 Yes [id number] 150ug Take 1 Univers ne 150 mcg 9-08 tablet by ity of tablet 00:00: mouth [place] 00 every Medical morning. Branch levothyroxi 2020-0 Yes [id number] 150ug Take 1 Univers ne 150 mcg 9-08 tablet by ity of tablet 00:00: mouth [place] 00 every Medical morning. Branch levothyroxi 2020-0 Yes [id number] 150ug Take 1 Univers ne 150 mcg 9-08 tablet by ity of tablet 00:00: mouth [place] 00 every Medical morning. Branch levothyroxi 2020-0 Yes [id number] 150ug Take 1 Univers ne 150 mcg 9-08 tablet by ity of tablet 00:00: mouth [place] 00 every Medical morning. [place] levothyroxi 2020-0 Yes [id number] 150ug Take 1 Univers ne 150 mcg 9-08 tablet by ity of tablet 00:00: mouth [place] 00 every Medical morning. [place] levothyroxi 2020-0 2020- No [id number] 150ug Take 1 Univers ne 150 mcg 9-05 14- tablet by ity of tablet 00:00: 00:00 mouth [place] 00 :00 every Medical morning. [place] LEVOTHYROXI 2020-0 2020- No [id number] TAKE 1 Univers NE 150 mcg 9- TABLET BY ity of tablet 00:00: 00:00 MOUTH [place] 00 :00 EVERY DAY Medical IN THE [facility] LEVOTHYROXI 2020-0 2019- No [id number] TAKE 1 Univers NE 150 mcg 06-20- TABLET BY ity of tablet 00:00: 00:00 MOUTH [place] 00 :00 EVERY DAY Medical IN THE [facility] LEVOTHYROXI 2020-0 Yes [id number] TAKE 1 Univers NE 150 mcg 8-12 TABLET BY ity of tablet 00:00: MOUTH [place] 00 EVERY DAY Medical IN THE [facility] LEVOTHYROXI 2020-0 2020- No [id number] TAKE 1 Univers NE 150 mcg 8-12 -08 TABLET BY ity of tablet 00:00: 00:00 MOUTH [place] 00 :00 EVERY DAY Medical IN THE [facility] LEVOTHYROXI 2020-0 2020- No [id number] TAKE 1 Univers NE 150 mcg 8-12 - TABLET BY ity of tablet 00:00: 00:00 MOUTH [place] 00 :00 EVERY DAY Medical IN THE [facility] spironolact 2020-0 Yes 50mg Take 50 mg Univers one 50 mg 7-27 by mouth ity of tablet 13:51: daily. [address] spironolact 2020-0 Yes 50mg Take 50 mg Univers one 50 mg 7-27 by mouth ity of tablet 13:51: daily. [address] spironolact 2020-0 Yes 50mg Take 50 mg Univers one 50 mg 7-27 by mouth ity of tablet 13:51: daily. [address] spironolact 2020-0 Yes 50mg Take 50 mg Univers one 50 mg 7-27 by mouth ity of tablet 13:51: daily. [address] spironolact 2020-0 Yes 50mg Take 50 mg Univers one 50 mg 7-27 by mouth ity of tablet 13:51: daily. [address] spironolact 2020-0 Yes 50mg Take 50 mg Univers one 50 mg 7-27 by mouth ity of tablet 13:51: daily. [address] spironolact 2020-0 Yes 50mg Take 50 mg Univers one 50 mg 7-27 by mouth ity of tablet 13:51: daily. [address] spironolact 2020-0 Yes 50mg Take 50 mg Univers one 50 mg 7-27 by mouth ity of tablet 13:51: daily. [address] spironolact 2020-0 Yes 50mg Take 50 mg Univers one 50 mg 7-27 by mouth ity of tablet 13:51: daily. [address] spironolact 2020-0 Yes 50mg Take 50 mg Univers one 50 mg 7-27 by mouth ity of tablet 13:51: daily. [address] spironolact 2020-0 Yes 50mg Take 50 mg Univers one 50 mg 7-27 by mouth ity of tablet 13:51: daily. [address] spironolact 2020-0 Yes 50mg Take 50 mg Univers one 50 mg 7-27 by mouth ity of tablet 13:51: daily. [address] spironolact 2020-0 Yes 50mg Take 50 mg Univers one 50 mg 7-27 by mouth ity of tablet 13:51: daily. [address] spironolact 2020-0 Yes 50mg Take 50 mg Univers one 50 mg 7-27 by mouth ity of tablet 13:51: daily. [address] spironolact 2020-0 Yes 50mg Take 50 mg Univers one 50 mg 7-27 by mouth ity of tablet 13:51: daily. [address] spironolact 2020-0 Yes 50mg Take 50 mg Univers one 50 mg 7-27 by mouth ity of tablet 13:51: daily. [address] spironolact 2020-0 Yes 50mg Take 50 mg Univers one 50 mg 7-27 by mouth ity of tablet 13:51: daily. [address] spironolact 2020-0 Yes 50mg Take 50 mg Univers one 50 mg 7-27 by mouth ity of tablet 13:51: daily. [address] spironolact 2020-0 Yes 50mg Take 50 mg Univers one 50 mg 7-27 by mouth ity of tablet 13:51: daily. [address] spironolact 2020-0 Yes 50mg Take 50 mg Univers one 50 mg 7-27 by mouth ity of tablet 13:51: daily. [address] spironolact 2020-0 Yes 50mg Take 50 mg Univers one 50 mg 7-27 by mouth ity of tablet 13:51: daily. [address] spironolact 2020-0 Yes 50mg Take 50 mg Univers one 50 mg 7-27 by mouth ity of tablet 13:51: daily. [address] spironolact 2020-0 Yes 50mg Take 50 mg Univers one 50 mg 7-27 by mouth ity of tablet 13:51: daily. [address] spironolact 2020-0 Yes 50mg Take 50 mg Univers one 50 mg 7-27 by mouth ity of tablet 13:51: daily. [address] spironolact 2020-0 Yes 50mg Take 50 mg Univers one 50 mg 7-27 by mouth ity of tablet 13:51: daily. [address] LEVOTHYROXI 2020-0 Yes [id number] TAKE 1 Univers NE 150 mcg 7-17 TABLET BY ity of tablet 00:00: MOUTH [place] 00 EVERY DAY Medical IN THE [facility] LEVOTHYROXI 2020-0 Yes [id number] TAKE 1 Univers NE 150 mcg 7-17 TABLET BY ity of tablet 00:00: MOUTH [place] 00 EVERY DAY Medical IN THE [facility] LEVOTHYROXI 2020-0 Yes [id number] TAKE 1 Univers NE 150 mcg 7-17 TABLET BY ity of tablet 00:00: MOUTH [place] 00 EVERY DAY Medical IN THE [facility] LEVOTHYROXI 2020-0 Yes [id number] TAKE 1 Univers NE 150 mcg 7-17 TABLET BY ity of tablet 00:00: MOUTH [place] 00 EVERY DAY Medical IN THE [facility] LEVOTHYROXI 2020-0 Yes [id number] TAKE 1 Univers NE 150 mcg 7-17 TABLET BY ity of tablet 00:00: MOUTH [place] 00 EVERY DAY Medical IN THE [facility] LEVOTHYROXI 2020-0 2020- No [id number] TAKE 1 Univers NE 150 mcg 7-17 08-12 TABLET BY ity of tablet 00:00: 00:00 MOUTH [place] 00 :00 EVERY DAY Medical IN THE Branch MORNING levothyroxi 2020-0 Yes [id number] TAKE 1 Univers ne 150 mcg 4-20 TABLET BY ity of tablet 00:00: MOUTH [place] 00 EVERY DAY Medical IN THE [place] MORNING levothyroxi 2019-0 Yes [id number] TAKE 1 Univers ne 150 mcg 4-20 TABLET BY ity of tablet 00:00: MOUTH [place] 00 EVERY DAY Medical IN THE [place] MORNING levothyroxi 2020-0 2020- No [id number] TAKE 1 Univers ne 150 mcg 4-20 07-17 TABLET BY ity of tablet 00:00: 00:00 MOUTH [place] 00 :00 EVERY DAY Medical IN THE [place] MORNING meloxicam Yes 15mg Take 15 mg Un [place] 15 mg 3-26 by mouth ity of tablet 19:43: daily. [address] spironolact Yes 50mg Take 50 mg Univers one 50 mg 3-26 by mouth ity of tablet 19:43: daily. [address] meloxicam Yes 15mg Take 15 mg Un [place] 15 mg 3-26 by mouth ity of tablet 19:43: daily. [address] spironolact Yes 50mg Take 50 mg Univers one 50 mg 3-26 by mouth ity of tablet 19:43: daily. [address] meloxicam Yes 15mg Take 15 mg Un [place] 15 mg 3-26 by mouth ity of tablet 19:43: daily. [address] meloxicam Yes 15mg Take 15 mg Un [place] 15 mg 3-26 by mouth ity of tablet 19:43: daily. [address] meloxicam Yes 15mg Take 15 mg Un [place] 15 mg 3-26 by mouth ity of tablet 19:43: daily. [address] meloxicam Yes 15mg Take 15 mg Un [place] 15 mg 3-26 by mouth ity of tablet 19:43: daily. [address] meloxicam 0 Yes 15mg Take 15 mg Un [place] 15 mg 3-26 by mouth ity of tablet 19:43: daily. [address] meloxicam 2018-0 Yes 15mg Take 15 mg Un [place] 15 mg 3-26 by mouth ity of tablet 19:43: daily. [address] meloxicam 2019-0 Yes 15mg Take 15 mg Un [place] 15 mg 3-26 by mouth ity of tablet 19:43: daily. [address] meloxicam 2018-0 Yes 15mg Take 15 mg Un [place] 15 mg 3-26 by mouth ity of tablet 19:43: daily. [address] meloxicam 0 Yes 15mg Take 15 mg Un [place] 15 mg 3-26 by mouth ity of tablet 19:43: daily. [address] meloxicam 0 Yes 15mg Take 15 mg Un [place] 15 mg 3-26 by mouth ity of tablet 19:43: daily. [address] meloxicam Yes 15mg Take 15 mg Un [place] 15 mg 3-26 by mouth ity of tablet 19:43: daily. [address] meloxicam Yes 15mg Take 15 mg Un [place] 15 mg 3-26 by mouth ity of tablet 19:43: daily. [address] meloxicam Yes 15mg Take 15 mg Un [place] 15 mg 3-26 by mouth ity of tablet 19:43: daily. [address] meloxicam Yes 15mg Take 15 mg Un [place] 15 mg 3-26 by mouth ity of tablet 19:43: daily. [address] meloxicam Yes 15mg Take 15 mg Un [place] 15 mg 3-26 by mouth ity of tablet 19:43: daily. [address] meloxicam Yes 15mg Take 15 mg Un [place] 15 mg 3-26 by mouth ity of tablet 19:43: daily. [address] meloxicam Yes 15mg Take 15 mg Un [place] 15 mg 3-26 by mouth ity of tablet 19:43: daily. [address] meloxicam Yes 15mg Take 15 mg Un [place] 15 mg 3-26 by mouth ity of tablet 19:43: daily. [address] meloxicam 0 Yes 15mg Take 15 mg [place] 15 mg 3-26 by mouth ity of tablet 19:43: daily. [address] spironolact Yes 50mg Take 50 mg Univers one 50 mg 3-26 by mouth ity of tablet 19:43: daily. [address] meloxicam Yes 15mg Take 15 mg Un [place] 15 mg 3-26 by mouth ity of tablet 19:43: daily. [address] spironolact Yes 50mg Take 50 mg Univers one 50 mg 3-26 by mouth ity of tablet 19:43: daily. [address] levothyroxi 2020- No [id number] TAKE 1 Univers ne 150 mcg 3-26 04-20 TABLET BY ity of tablet 00:00: 00:00 MOUTH [place] 00 :00 EVERY DAY Medical IN THE Branch MORNING carvedilol Yes [id number] 3.125mg Take 1 Univers (COREG) 8-02 tablet by ity of 3.125 mg 00:00: mouth 2 [place] tablet 00 (two) Medical times Branch daily with meals. carvedilol Yes [id number] 3.125mg Take 1 Univers (COREG) 8-02 tablet by ity of 3.125 mg 00:00: mouth 2 [place] tablet 00 (two) Medical times Branch daily with meals. carvedilol Yes [id number] 3.125mg Take 1 Univers (COREG) 8-02 tablet by ity of 3.125 mg 00:00: mouth 2 [place] tablet 00 (two) Medical times Branch daily with meals. carvedilol Yes [id number] 3.125mg Take 1 Univers (COREG) 8-02 tablet by ity of 3.125 mg 00:00: mouth 2 [place] tablet 00 (two) Medical times Branch daily with meals. carvedilol Yes [id number] 3.125mg Take 1 Univers (COREG) 8-02 tablet by ity of 3.125 mg 00:00: mouth 2 [place] tablet 00 (two) Medical times Branch daily with meals. carvedilol Yes [id number] 3.125mg Take 1 Univers (COREG) 8-02 tablet by ity of 3.125 mg 00:00: mouth 2 [place] tablet 00 (two) Medical times Branch daily with meals. carvedilol Yes [id number] 3.125mg Take 1 Univers (COREG) 8-02 tablet by ity of 3.125 mg 00:00: mouth 2 [place] tablet 00 (two) Medical times Branch daily with meals. carvedilol Yes [id number] 3.125mg Take 1 Univers (COREG) 8-02 tablet by ity of 3.125 mg 00:00: mouth 2 [place] tablet 00 (two) Medical times Branch daily with meals. carvedilol Yes [id number] 3.125mg Take 1 Univers (COREG) 8-02 tablet by ity of 3.125 mg 00:00: mouth 2 [place] tablet 00 (two) Medical times Branch daily with meals. carvedilol Yes [id number] 3.125mg Take 1 Univers (COREG) 8-02 tablet by ity of 3.125 mg 00:00: mouth 2 [place] tablet 00 (two) Medical times Branch daily with meals. carvedilol Yes [id number] 3.125mg Take 1 Univers (COREG) 8-02 tablet by ity of 3.125 mg 00:00: mouth 2 [place] tablet 00 (two) Medical times Branch daily with meals. carvedilol Yes [id number] 3.125mg Take 1 Univers (COREG) 8-02 tablet by ity of 3.125 mg 00:00: mouth 2 [place] tablet 00 (two) Medical times Branch daily with meals. carvedilol Yes [id number] 3.125mg Take 1 Univers (COREG) 8-02 tablet by ity of 3.125 mg 00:00: mouth 2 [place] tablet 00 (two) Medical times Branch daily with meals. carvedilol Yes [id number] 3.125mg Take 1 Univers (COREG) 8-02 tablet by ity of 3.125 mg 00:00: mouth 2 [place] tablet 00 (two) Medical times Branch daily with meals. carvedilol Yes [id number] 3.125mg Take 1 Univers (COREG) 8-02 tablet by ity of 3.125 mg 00:00: mouth 2 [place] tablet 00 (two) Medical times Branch daily with meals. carvedilol Yes [id number] 3.125mg Take 1 Univers (COREG) 8-02 tablet by ity of 3.125 mg 00:00: mouth 2 [place] tablet 00 (two) Medical times Branch daily with meals. carvedilol Yes [id number] 3.125mg Take 1 Univers (COREG) 8-02 tablet by ity of 3.125 mg 00:00: mouth 2 [place] tablet 00 (two) Medical times Branch daily with meals. carvedilol 2016-0 Yes [id number] 3.125mg Take 1 Univers (COREG) 8-02 tablet by ity of 3.125 mg 00:00: mouth 2 [place] tablet 00 (two) Medical times Branch daily with meals. carvedilol 2016-0 Yes [id number] 3.125mg Take 1 Univers (COREG) 8-02 tablet by ity of 3.125 mg 00:00: mouth 2 [place] tablet 00 (two) Medical times Branch daily with meals. carvedilol 2016- Yes [id number] 3.125mg Take 1 Univers (COREG) 8-02 tablet by ity of 3.125 mg 00:00: mouth 2 [place] tablet 00 (two) Medical times Branch daily with meals. carvedilol 2016- Yes [id number] 3.125mg Take 1 Univers (COREG) 8-02 tablet by ity of 3.125 mg 00:00: mouth 2 [place] tablet 00 (two) Medical times Branch daily with meals. carvedilol 2016- Yes [id number] 3.125mg Take 1 Univers (COREG) 8-02 tablet by ity of 3.125 mg 00:00: mouth 2 [place] tablet 00 (two) Medical times Branch daily with meals. carvedilol 2016-0 Yes [id number] 3.125mg Take 1 Univers (COREG) 8-02 tablet by ity of 3.125 mg 00:00: mouth 2 [place] tablet 00 (two) Medical times Branch daily with meals. carvedilol 2016-0 Yes [id number] 3.125mg Take 1 Univers (COREG) 8-02 tablet by ity of 3.125 mg 00:00: mouth 2 [place] tablet 00 (two) Medical times Branch daily with meals. carvedilol 2016-0 Yes [id number] 3.125mg Take 1 Univers (COREG) 8-02 tablet by ity of 3.125 mg 00:00: mouth 2 [place] tablet 00 (two) Medical times Branch daily with meals. carvedilol 2016-0 Yes [id number] 3.125mg Take 1 Univers (COREG) 8-02 tablet by ity of 3.125 mg 00:00: mouth 2 [place] tablet 00 (two) Medical times Branch daily with meals. carvedilol Yes [id number] 3.125mg Take 1 Univers (COREG) 8-02 tablet by ity of 3.125 mg 00:00: mouth 2 [place] tablet 00 (two) Medical times Branch daily with meals. carvedilol Yes [id number] 3.125mg Take 1 Univers (COREG) 8-02 tablet by ity of 3.125 mg 00:00: mouth 2 [place] tablet 00 (two) Medical times Branch daily with meals. carvedilol Yes [id number] 3.125mg Take 1 Univers (COREG) 8-02 tablet by ity of 3.125 mg 00:00: mouth 2 [place] tablet 00 (two) Medical times Branch daily with meals. simvastatin Yes [id number] 40mg Take 1 Tab Univers (ZOCOR) 40 2-02 by mouth ity o f mg tablet 00:00: at [place] [address] bedtime. Medical Branch simvastatin Yes [id number] 40mg Take 1 Tab Univers (ZOCOR) 40 2-02 by mouth ity o f mg tablet 00:00: at [place] [address] bedtime. Medical Branch simvastatin Yes [id number] 40mg Take 1 Tab Univers (ZOCOR) 40 2-02 by mouth ity o f mg tablet 00:00: at [place] 00 bedtime. Medical Branch simvastatin 2016 Yes [id number] 40mg Take 1 Tab Univers (ZOCOR) 40 2-02 by mouth ity o f mg tablet 00:00: at [place] 00 bedtime. Medical Branch simvastatin 2016-0 Yes [id number] 40mg Take 1 Tab Univers (ZOCOR) 40 2-02 by mouth ity o f mg tablet 00:00: at [place] 00 bedtime. Medical Branch simvastatin 0 Yes [id number] 40mg Take 1 Tab Univers (ZOCOR) 40 2-02 by mouth ity o f mg tablet 00:00: at [place] 00 bedtime. Medical Branch simvastatin 2016-0 Yes [id number] 40mg Take 1 Tab Univers (ZOCOR) 40 2-02 by mouth ity o f mg tablet 00:00: at [place] 00 bedtime. Medical Branch simvastatin 2015- Yes [id number] 40mg Take 1 Tab Univers (ZOCOR) 40 2-02 by mouth ity o f mg tablet 00:00: at [place] 00 bedtime. [facility] Branch simvastatin 2016-0 Yes [id number] 40mg Take 1 Tab Univers (ZOCOR) 40 2-02 by mouth ity o f mg tablet 00:00: at [place] 00 bedtime. [facility] Branch simvastatin 2016-0 Yes [id number] 40mg Take 1 Tab Univers (ZOCOR) 40 2-02 by mouth ity o f mg tablet 00:00: at [place] 00 bedtime. [facility] Branch simvastatin 2016-0 Yes [id number] 40mg Take 1 Tab Univers (ZOCOR) 40 2-02 by mouth ity o f mg tablet 00:00: at [place] 00 bedtime. [facility] Branch simvastatin 2015-0 Yes [id number] 40mg Take 1 Tab Univers (ZOCOR) 40 2-02 by mouth ity o f mg tablet 00:00: at [place] 00 bedtime. [facility] simvastatin 2015-0 Yes [id number] 40mg Take 1 Tab Univers (ZOCOR) 40 2-02 by mouth ity o f mg tablet 00:00: at [place] 00 bedtime. [facility] simvastatin 2016-0 Yes [id number] 40mg Take 1 Tab Univers (ZOCOR) 40 2-02 by mouth ity o f mg tablet 00:00: at [place] 00 bedtime. [facility] simvastatin 2016-0 Yes [id number] 40mg Take 1 Tab Univers (ZOCOR) 40 2-02 by mouth ity o f mg tablet 00:00: at [place] 00 bedtime. [facility] simvastatin 2016-0 Yes [id number] 40mg Take 1 Tab Univers (ZOCOR) 40 2-02 by mouth ity o f mg tablet 00:00: at [place] 00 bedtime. [facility] simvastatin 2016-0 Yes [id number] 40mg Take 1 Tab Univers (ZOCOR) 40 2-02 by mouth ity o f mg tablet 00:00: at [place] 00 bedtime. [facility] simvastatin 2016-0 Yes [id number] 40mg Take 1 Tab Univers (ZOCOR) 40 2-02 by mouth ity o f mg tablet 00:00: at [place] 00 bedtime. [facility] simvastatin 2016-0 Yes [id number] 40mg Take 1 Tab Univers (ZOCOR) 40 2-02 by mouth ity o f mg tablet 00:00: at [place] 00 bedtime. [facility] simvastatin 2016-0 Yes [id number] 40mg Take 1 Tab Univers (ZOCOR) 40 2-02 by mouth ity o f mg tablet 00:00: at [place] 00 bedtime. Medical Branch simvastatin Yes [id number] 40mg Take 1 Tab Univers (ZOCOR) 40 2-02 by mouth ity o f mg tablet 00:00: at [place] 00 bedtime. [facility] Branch simvastatin Yes [id number] 40mg Take 1 Tab Univers (ZOCOR) 40 2-02 by mouth ity o f mg tablet 00:00: at [place] 00 bedtime. [facility] Branch simvastatin Yes [id number] 40mg Take 1 Tab Univers (ZOCOR) 40 2-02 by mouth ity o f mg tablet 00:00: at [place] 00 bedtime. [facility] Branch simvastatin Yes [id number] 40mg Take 1 Tab Univers (ZOCOR) 40 2-02 by mouth ity o f mg tablet 00:00: at [place] 00 bedtime. [facility] Branch simvastatin Yes [id number] 40mg Take 1 Tab Univers (ZOCOR) 40 2-02 by mouth ity o f mg tablet 00:00: at [place] 00 bedtime. [facility] Branch simvastatin Yes [id number] 40mg Take 1 Tab Univers (ZOCOR) 40 2-02 by mouth ity o f mg tablet 00:00: at [place] 00 bedtime. [facility] Branch simvastatin Yes [id number] 40mg Take 1 Tab Univers (ZOCOR) 40 2-02 by mouth ity o f mg tablet 00:00: at [place] 00 bedtime. [facility] Branch simvastatin Yes [id number] 40mg Take 1 Tab Univers (ZOCOR) 40 2-02 by mouth ity o f mg tablet 00:00: at [place] 00 bedtime. [facility] Branch simvastatin Yes [id number] 40mg Take 1 Tab Univers (ZOCOR) 40 2-02 by mouth ity o f mg tablet 00:00: at [place] 00 bedtime. [facility] Vital Signs Vital Name Observation Time Observation Value Comments Source Systolic blood 2021-01-15 19:23:00 118 mm[Hg] Univer sity of pressure [facility] Diastolic blood 2021-01-15 19:23:00 78 mm[Hg] Unive rsity of pressure [place] [facility] Heart rate 2021-01-15 19:23:00 59 /min [facility] [place] [facility] Respiratory rate 2021-01-15 19:23:00 19 /min Univ ersity of [facility] Body height 2021-01-15 19:23:00 172.7 cm [facility] [place] [facility] Body weight 2021-01-15 19:23:00 142.974 kg [facility] [place] [facility] BMI 2021-01-15 19:23:00 47.93 kg/m2 [facility] Systolic blood 2020-05-08 13:53:00 138 mm[Hg] Univer sity of pressure [place] [facility] Diastolic blood 2020-05-08 13:53:00 86 mm[Hg] Unive rsity of pressure [facility] Heart rate 2020-05-08 13:53:00 80 /min [facility] [place] [facility] Body temperature 2020-05-08 13:53:00 37.28 Jinny [facility] ersity of [facility] Respiratory rate 2020-05-08 13:53:00 18 /min Univ [facility] [place] [facility] Body height 2020-05-08 13:53:00 172.7 cm [facility] [place] [facility] Body weight 2020-05-08 13:53:00 127.007 kg [facility] [place] [facility] BMI 2020-05-08 13:53:00 42.57 kg/m2 [facility] [place] [facility] Oxygen saturation in 2020-05-08 13:53:00 97 /min [facility] Arterial blood by [facility] Pulse oximetry Branch Procedures Procedure Date / Time Performed Performing Clinician Christiano e EXTERNAL PROVIDER 2021-06-01 05:01:00 Doctor Unassigned, No Univ ersity of [place] RECORDS Name Medical Branch EXTERNAL PROVIDER 2021-04-26 05:01:00 Doctor Unassigned, No Univ ers[facility] of [place] RECORDS Name Medical Branch US LIVER 2021-04-11 16:17:00 Simran Bacon [place] [facility] US HEAD NECK 2021-01-22 20:36:53 Demetrio Marion [facility] Encounters Start End Encounter Admission Attending Care Care Encounter Source Date/Time Date/Time Type Type Clinicians Facility Department ID 2022-01-14 2022-01-14 Outpatient R DONI [facility] [id number] Univers 15:00:00 15:00:00 DEMETRIO ity [facility] 2021-06-01 2021-06-01 Orders Doctor LEAH 1.2.840.114 [id number] Univers 00:00:00 00:00:00 Only Unassigned, TDOD 350.1.13.10 ity of [place] [facility] 4.2.7.2.686 Jv as [phone] [address] 2021-05-14 2021-05-14 Outpatient R [facility] [id number] Univers 08:45:00 08:45:00 SIMRAN itmaggy [facility] 2021-04-26 2021-04-26 Orders Doctor LEAH 1.2.840.114 [id number] Univers 00:00:00 00:00:00 Only Unassigned, TODD 350.1.13.10 ity of [place] [facility] 4.2.7.2.686 [place] as [phone] [address] 2021-04-25 2021-04-25 Ancillary Monik Fuller [facility] 1 .2.840.114 [id number] Univers 14:57:27 15:47:36 Visit Alfredo White 350.1.13.10 [place] [id number] [facility] [address] 2021-04-25 2021-04-25 Outpatient Lyly [facility] [id number] Univers 15:00:00 15:00:00 ALFREDO cedeño [facility] 2021-04-20 2021-04-20 Telephone [facility] 1.2.840.114 [id number] Univers 00:00:00 00:00:[address] [facility] [id number] it y of [place] 4.2.7.2.686 [place] [phone] [address] Office Building 2021-04-18 2021-04-18 Outpatient Lyly WHITE [facility] [id number] Univers 13:40:00 13:40:00 ALFREDO cedeño [facility] 2021-04-11 2021-04-11 [facility] 1.2.840.114 [id number] Univers 10:58:11 23:59:00 Encounter Simran SPECIALTY 350.1.13.10 it[place] [phone] [place]on REEVESY [address] [facility] 2021-04-11 2021-04-11 [facility] 1.2.840.114 [id number] Univers 10:57:50 10:57:50 Encounter Simran SPECIALTY 350.1.13.10 [place] [phone] [place] NERI [address] [place] [address] 2021-04-11 2021-04-11 Outpatient R [facility] [id number] Univers 00:00:00 00:00:00 SIMRAN ity [facility] 2021-04-04 2021-04-04 Foam 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 Operator Vls-Lab [facility] 1.2.840.114 [id number] Univers 13:05:05 13:20:05 Visit Simran Bacon 350.1.13.10 it[place] [phone] [place] NERI [address] [facility] 2021-04-04 2021-04-04 Outpatient R [facility] [id number] Univers 09:00:00 09:00:00 SIMRAN ity [facility] 2021-01-23 2021-01-23 [facility] 1.2.840.114 [id number] Univers 00:00:00 00:00:00 Demetrio Moreno 350.1.13.10 [place] [phone] Ky ron means [facility] 2021-01-22 2021-01-22 [facility] 1.2.840.114 [id number] Univers 15:04:59 23:59:00 Encounter Demetrio Romeo 350.1.13.10 [place]2.[place] [id number] [address] 2021-01-22 2021-01-22 Outpatient R DONI [facility] [id number] Univers 00:00:00 00:00:00 DEMETRIO maggy [facility] 2021-01-19 2021-01-19 Patient Doni [facility] 1.2.840.114 [id number] Univers 00:00:00 00:00:00 Secure Msg Demetrio Moreno 350.1.13.10 [place] [phone] [place] dical nal [address] [facility] 2021-01-15 2021-01-15 Foam Gun Operator 2, Adc Lab [facility] 1.2.840.114 [id number] Univers 15:02:26 15:17:26 Visit Demetrio Marion Tiffanie 350.1.13.10 [place] [phone] [facility] 2021-01-15 2021-01-15 Office [facility] 1.2.840.114 [id number] Univers 14:02:19 14:32:19 Visit Demetrio Moreno 350.1.13.10 i [place] [phone] [place] dical [facility] 2021-01-15 2021-01-15 Outpatient R [facility] [id number] Univers 14:00:00 14:00:[address] [facility] 2021-01-01 2021-01-01 Outpatient R DONI [facility] [id number] Univers 10:00:00 10:00:[address] [facility] 2020-12-05 2020-12-05 Telephone [facility] 1.2.840.114 [id number] Univers 00:00:00 00:00:00 Demetrio [place]ton 350.1.13.10 i [place] [phone] [place] dic[address] 2020-12-01 2020-12-01 Refill [facility] 1.2.840.114 [id number] Univers 00:00:00 00:00:00 Demetrio Romeo 350.1.13.10 i [place] [id number] [address] 2020-09-28 2020-09-28 Refill [facility] 1.2.840.114 [id number] Univers 00:00:00 00:00:00 Demetrio Romeo 350.1.13.10 i [place] [phone] [address] 2020-06-20 2020-06-20 Telephone [facility] 1.2.840.114 [id number] Univers 00:00:00 00:00:00 Demetrio Romeo 350.1.13.10 i [place]2.[place] [id number] [address] 2020-06-16 2020-06-16 Refill [facility] 1.2.840.114 [id number] Univers 00:00:00 00:00:00 Demetrio Romeo 350.1.13.10 [place] [phone] [address] 2020-05-29 2020-05-29 Outpatient R DONI [facility] [id number] Univers 16:00:00 16:00:00 DEMETRIO ity [facility] 2020-05-24 2020-05-24 Refill [facility] 1.2.840.114 [id number] Univers 00:00:00 00:00:00 Demetrio Romeo 350.1.13.10 i [place] [phone] [address] 2020-05-09 2020-05-09 Telephone Alondra [facility] 1.2.840.114 [id number] Univers 00:00:00 00:00:00 [facility] 350.1.13.10 it y of [place] 4.2.7.2.686 [place] Professio [phone] [address] 2020-05-09 2020-05-09 Telephone Alondra [facility] 1.2.840.114 [id number] Univers 00:00:00 00:00:00 [facility] 350.1.13.10 it y of [place] 4.2.7.2.686 [place] Professio [phone] [address] 2020-05-08 2020-05-08 Urgent Pob1, Acute Care Clinic [facility] 1. 2.840.114 [id number] Univers 08:47:49 09:07:49 [facility] 350.1.13.10 ity of [place] 4.2.7.2.686 [place] Professio [id number] [address] 2020-05-08 2020-05-08 Outpatient R ALONDRA [facility] [id number] Univers 08:40:00 08:40:00 [facility] ity of [facility] 2020-05-08 2020-05-08 Letter Doctor LEAH 1.2.840.114 [id number] Univers 00:00:00 00:00:00 (Out) Unassigned, TODD 350.1.13.10 ity of [place] [facility] 4.2.7.2.686 Jv as [phone] [address] 2020-04-27 2020-04-27 Refill Doni [facility] 1.2.840.114 [id number] Univers 00:00:00 00:00:00 Demetrio Moreno 350.1.13.10 [place] [phone] [facility] [address] [facility] 2020-02-14 2020-02-14 Telemedici Doni [facility] 1.2.840.114 [id number] Univers 13:10:59 16:24:17 ne Visit Demetrio Moreno 350.1.13.10 [place] [id number] [address] 2020-02-14 2020-02-14 Telemedici [facility] 1.2.840.114 [id number] 13:10:59 16:24:17 ne Visit Demetrio Moreno 350.1.13.10 [place] 4.2.7.2.686 Professio [phone] [address] 2020-02-14 2020-02-14 Outpatient R [facility] [id number] Univers 15:30:00 15:30:00 [facility] 2020-01-31 2020-01-31 [facility] 1.2.840.114 [id number] [facility] [place] [facility] 00:00:00 00:00:00 Demetrio Moreno 350.1.13.10 [place] [phone] [address] 2020-01-31 2020-01-31 Refill [facility] 1.2.840.114 [id number] 00:00:00 00:00:00 Demetrio Moreno 350.1.13.10 [place] 4.2.7.2.686 Professio [phone] [address] 2020-01-17 2020-01-17 Outpatient [facility] [id number] Univers 16:00:00 16:00:00 [facility] Results Test Description Test Time Test Comments Results Result [facility] e Comments US LIVER 2021-03-15 1. ?Limited University o f 0 visualization of [place] dical 22:08:29 the hepatic Branch parenchyma given [...] was evaluated withcolor and spectral Doppler imaging. [employer] Carpenter images were obtained forthe record. COMPARISON: None [...] portions of the right kidney are unremarkable. [facility], Radiant Results Inft User - 04/11/2021 5:09 PM CDT EXAM: US LIVERHISTORY: 50 years-old Female with morbid obesity. Evaluate for fatty liverdisease .TECHNIQUE: Limited abdominal ultrasound was performed focused on the liver,biliary system, pancreas and spleen. Main portal vein was evaluated withcolor and spectral Doppler imaging. [employer] images were obtained forthe record.COMPARISON: NoneFINDINGS:LIVER: Length: [...] of cholecystitis.Preli minary Report Dictated by Resident: Beba Hanley, Yulia Ely MD., have reviewed this study and agree with the abovereport. US HEAD NECK 2021-01-11 Status post [place] [address] thyroidectomy. [facility] 20:50:10 recurrent or Branch residual disease to [...] adjacent bilateral neck, likely reactive andsimilar prior. [facility], Radiant Results Inft User - 01/22/2021 3:51 [...]
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
[2023-03-03 13:38] VITALS: TEMP 97
[2023-03-03 13:39] VITALS: BP 110/68; O2SAT 99
== END 2023-03-03 13:30 | disposition home or self-care (01) ==
LOC: ER 11:20
DX: M54.2 Cervicalgia (principal); R07.89 Other chest pain; V49.40XA Driver injured in collision with unspecified motor vehicles in traffic accident, initial encounter; E07.9 Disorder of thyroid, unspecified; E78.00 Pure hypercholesterolemia, unspecified; Z88.1 Allergy status to other antibiotic agents; Z88.8 Allergy status to other drugs, medicaments and biological substances; Z91.018 Allergy to other foods
CPT/HCPCS: 71045; 72040

== ENCOUNTER 2023-04-03 05:59 | Observation (INO) | payer BC ==
--- OUTSIDE RECORDS SUMMARY | 2023-04-03 06:04 | XMS REPORT | Continuity of Care Document ---
:1970 Author Organization [facility] t Address [address] [place] [address] [place] [id number] Care Team Providers Name Role Phone SHA GAABY A Primary Care Physician Unavailable DEMETRIO MARION Attending Clinician Unavailable Doctor Unassigned, [place] Attending Clinician Unavailable SIMRAN BACON Attending Clinician [...] Policy Number Effective Date Expiration Date S [facility] - [id number] 2015 00:00:00 OUT OF STATE Problems Condition Condition Condition Status Onset Resolution Last Treating Co mments Source Name Details Category Date Date Treatment Clinician Date Postsurgic Postsurgic Disease Active U pearl youssef 8- ity of hypothyro[place] dis[place] 00 Medical Branch H. pylori H. pylori Disease Active 2009-10 Uni vers infection infection 2- ity of 00:00: [place] 00 Medical Branch Helicobact Helicobact Disease Active 2009-10 Overview : Univers er pylori er pylori 10-31 [place] i ty of infection infection 00:00: [place] of this [place] note Medical might be Branch different from the original. 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 CLIFFORD CLIFFORD Disease Active Univers (obstructi [...] Quantity Comments Source Exposure to Not sure [facility] SARS-CoV-2 [place] Medical (event) Branch Tobacco use and 2021-04-04 2021-04-04 Never used Universit y of exposure 00:00:00 00:00:00 [facility] Alcohol intake 2021-04-04 2021-04-04 Current University of 00:00:00 00:00:00 non-drinker of [facility] alcohol Branch (finding) Sex Ass[birth year] At [birth year] Universit y of 00:00:00 00:00:00 [facility] Branch Smoking Status Start Date Stop Date Source Never smoker [facility] Medications Ordered Filled Start Stop Current Ordering Indication Dosage Frequency Signature Comments Components Source Medication Medication Date Date Medication? Clinician (SIG) Name Name barium 2020- No [id number] 90mL 90 mL, [facility] ers sulfate 04-11 Oral, ity of (E-Z-HD 17:00: 16:47 ONCE, 1 [place] BARIUM) 98 00 :00 dose, Wed Medi shahla % oral 04/11/21 at [place] suspension 1200, 90 mL Routine barium 2020- No [id number] 90mL 90 mL, [facility] ers sulfate 04-11 Oral, ity of (LIQUID E-Z 17:00: 16:48 ONCE, 1 mery PADELISA) 60 % 00 :00 dose, Wed Med ical (w/v) oral 04/11/21 at [facility] suspension 1200, 90 mL Routine sod 2020- No [id number] 1{packe 1 Packet, Univers bicarb-citr 04-11 t} Oral, ity of ic 17:00: 16:48 ONCE, 1 [place] ac-simeth 00 :00 dose, Wed Medic al (E-Z-GAS 04/11/21 at [facility] h II) 1200, 2.21-1.53 Routine gram/4 [...] HCl 6-23 mouth. ity of (REGINE 14:40: [place] ALLERGY 54 Medical ORAL) Branch meloxicam Yes 15mg Take 15 mg [place] 15 mg 6-23 by mouth ity of tablet 14:35: daily. [address] meloxicam Yes 15mg Take 15 mg [place] 15 mg 6-23 by mouth ity of tablet 14:35: daily. [address] meloxicam Yes 15mg Take 15 mg [place] 15 mg 6-23 by mouth ity of tablet 14:35: daily. [address] meloxicam Yes 15mg Take 15 mg [place] 15 mg 6-23 by mouth ity of tablet 14:35: daily. [address] meloxicam Yes 15mg Take 15 mg [place] 15 mg 6-23 by mouth ity of tablet 14:35: daily. [address] meloxicam Yes 15mg Take 15 mg [place] 15 mg 6-23 by mouth ity of tablet 14:35: daily. [address] meloxicam Yes 15mg Take 15 mg [place] 15 mg 6-23 by mouth ity of tablet 14:35: daily. [address] OZEMPIC 1 Yes INJECT 1 Univ [...] OULY ONCE Medical WEEKLY Branch levothyroxi Yes [id number] 150ug Take 1 Univers ne 150 mcg 4-09 tablet by ity of tablet 00:00: mouth [place] 00 every Medical morning. Branch levothyroxi Yes [id number] 150ug Take 1 Univers ne 150 mcg 4-09 tablet by ity of tablet 00:00: mouth [place] 00 every Medical morning. Branch levothyroxi Yes [id number] 150ug Take 1 Univers ne 150 mcg 4-09 tablet by ity of tablet 00:00: mouth [place] 00 every Medical morning. Branch levothyroxi Yes [id number] 150ug Take 1 Univers ne 150 mcg 4-09 tablet by ity of tablet 00:00: mouth [place] 00 every Medical morning. Branch levothyroxi Yes [id number] 150ug Take 1 Univers ne 150 mcg 4-09 tablet by ity of tablet 00:00: mouth [place] 00 every Medical morning. Branch levothyroxi Yes [id number] 150ug Take 1 Univers ne 150 mcg 4-09 tablet by ity of tablet 00:00: mouth [place] 00 every Medical morning. Branch levothyroxi Yes [id number] 150ug Take 1 Univers ne 150 mcg 4-09 tablet by ity of tablet 00:00: mouth [place] 00 every Medical morning. Branch levothyroxi Yes [id number] 150ug Take 1 Univers ne 150 mcg 4-09 tablet by ity of tablet 00:00: mouth [place] 00 every Medical morning. Branch levothyroxi 2020-0 Yes [id number] 150ug Take 1 Univers ne 150 mcg 4-09 tablet by ity of tablet 00:00: mouth [place] 00 every Medical morning. Branch levothyroxi 2020-0 Yes [id number] 150ug Take 1 Univers ne 150 mcg 4-09 tablet by ity of tablet 00:00: mouth [place] 00 every Medical morning. Branch levothyroxi 2020-0 Yes [id number] 150ug Take 1 Univers ne 150 mcg 2-23 tablet by ity of tablet 00:00: mouth [place] 00 every Medical morning. Branch levothyroxi 2020-0 Yes [id number] 150ug Take 1 Univers ne 150 mcg 2-23 tablet by ity of tablet 00:00: mouth [place] 00 every Medical morning. Branch levothyroxi 2020-0 Yes [id number] 150ug Take 1 Univers ne 150 mcg 2-23 tablet by ity of tablet 00:00: mouth [place] 00 every Medical morning. Branch levothyroxi 2020-0 Yes [id number] 150ug Take 1 Univers ne 150 mcg 2-23 tablet by ity of tablet 00:00: mouth [place] 00 every Medical morning. Branch levothyroxi 2020-0 2020- No [id number] 150ug Take 1 Univers ne 150 mcg 2-23 04-09 tablet by ity of tablet 00:00: 00:00 mouth [place] 00 :00 every Medical morning. Branch LEVOTHYROXI 2020-0 Yes [id number] TAKE 1 Univers NE 150 mcg 9-08 TABLET BY ity of tablet 00:00: MOUTH [place] 00 EVERY DAY Medical IN THE Branch MORNING levothyroxi 2020-0 Yes [id number] 150ug Take 1 Univers ne 150 mcg 9-08 tablet by ity of tablet 00:00: mouth [place] 00 every Medical morning. Branch levothyroxi 2020-0 Yes [id number] 150ug Take 1 Univers ne 150 mcg 9-08 tablet by ity of tablet 00:00: mouth [place] 00 every Medical morning. Branch levothyroxi 2020-0 Yes [id number] 150ug Take 1 Univers ne 150 mcg 9-08 tablet by ity of tablet 00:00: mouth [place] 00 every Medical morning. Branch levothyroxi 2020-0 Yes [id number] 150ug Take 1 Univers ne 150 mcg 9-08 tablet by ity of tablet 00:00: mouth [place] 00 every Medical morning. [place] levothyroxi 2020-0 Yes [id number] 150ug Take 1 Univers ne 150 mcg 9-08 tablet by ity of tablet 00:00: mouth [place] 00 every Medical morning. [place] levothyroxi 2020-0 2020- No [id number] 150ug Take 1 Univers ne 150 mcg 9-05 14- tablet by ity of tablet 00:00: 00:00 mouth [place] 00 :00 every Medical morning. [place] LEVOTHYROXI 2020-0 2020- No [id number] TAKE 1 Univers NE 150 mcg 9- TABLET BY ity of tablet 00:00: 00:00 MOUTH [place] 00 :00 EVERY DAY Medical IN THE [facility] LEVOTHYROXI 2020-0 2019- No [id number] TAKE 1 Univers NE 150 mcg 06-20- TABLET BY ity of tablet 00:00: 00:00 MOUTH [place] 00 :00 EVERY DAY Medical IN THE [facility] LEVOTHYROXI 2020-0 Yes [id number] TAKE 1 Univers NE 150 mcg 8-12 TABLET BY ity of tablet 00:00: MOUTH [place] 00 EVERY DAY Medical IN THE [facility] LEVOTHYROXI 2020-0 2020- No [id number] TAKE 1 Univers [place] 150 mcg 8-12 -08 TABLET BY ity of tablet 00:00: 00:00 MOUTH [place] 00 :00 EVERY DAY Medical IN THE [facility] LEVOTHYROXI 2020-0 2020- No [id number] TAKE 1 Univers [place] 150 mcg 8-12 - TABLET BY ity of tablet 00:00: 00:00 MOUTH [place] 00 :00 EVERY DAY Medical IN THE [facility] spironolact 2020-0 Yes 50mg Take 50 mg Univers one 50 mg 7-27 by mouth ity of tablet 13:51: daily. [address] spironolact 2020-0 Yes 50mg Take 50 mg Univers one 50 mg 7-27 by mouth ity of tablet 13:51: daily. [address] spironolact 2020-0 Yes 50mg Take 50 mg Univers one 50 mg 7-27 by mouth ity of tablet 13:51: daily. [address] spironolact 2020-0 Yes 50mg Take 50 mg Univers one 50 mg 7-27 by mouth ity of tablet 13:51: daily. [address] spironolact 2020-0 Yes 50mg Take 50 mg Univers one 50 mg 7-27 by mouth ity of tablet 13:51: daily. [address] spironolact 2020-0 Yes 50mg Take 50 mg Univers one 50 mg 7-27 by mouth ity of tablet 13:51: daily. [address] spironolact 2020-0 Yes 50mg Take 50 mg Univers one 50 mg 7-27 by mouth ity of tablet 13:51: daily. [address] spironolact 2020-0 Yes 50mg Take 50 mg Univers one 50 mg 7-27 by mouth ity of tablet 13:51: daily. [address] spironolact 2020-0 Yes 50mg Take 50 mg Univers one 50 mg 7-27 by mouth ity of tablet 13:51: daily. [address] spironolact 2020-0 Yes 50mg Take 50 mg Univers one 50 mg 7-27 by mouth ity of tablet 13:51: daily. [address] spironolact 2020-0 Yes 50mg Take 50 mg Univers one 50 mg 7-27 by mouth ity of tablet 13:51: daily. [address] spironolact 2020-0 Yes 50mg Take 50 mg Univers one 50 mg 7-27 by mouth ity of tablet 13:51: daily. [address] spironolact 2020-0 Yes 50mg Take 50 mg Univers one 50 mg 7-27 by mouth ity of tablet 13:51: daily. [address] spironolact 2020-0 Yes 50mg Take 50 mg Univers one 50 mg 7-27 by mouth ity of tablet 13:51: daily. [address] spironolact 2020-0 Yes 50mg Take 50 mg Univers one 50 mg 7-27 by mouth ity of tablet 13:51: daily. [address] spironolact 2020-0 Yes 50mg Take 50 mg Univers one 50 mg 7-27 by mouth ity of tablet 13:51: daily. [address] spironolact 2020-0 Yes 50mg Take 50 mg Univers one 50 mg 7-27 by mouth ity of tablet 13:51: daily. [address] spironolact 2020-0 Yes 50mg Take 50 mg Univers one 50 mg 7-27 by mouth ity of tablet 13:51: daily. [address] spironolact 2020-0 Yes 50mg Take 50 mg Univers one 50 mg 7-27 by mouth ity of tablet 13:51: daily. [address] spironolact 2020-0 Yes 50mg Take 50 mg Univers one 50 mg 7-27 by mouth ity of tablet 13:51: daily. [address] spironolact 2020-0 Yes 50mg Take 50 mg Univers one 50 mg 7-27 by mouth ity of tablet 13:51: daily. [address] spironolact 2020-0 Yes 50mg Take 50 mg Univers one 50 mg 7-27 by mouth ity of tablet 13:51: daily. [address] spironolact 2020-0 Yes 50mg Take 50 mg Univers one 50 mg 7-27 by mouth ity of tablet 13:51: daily. [address] spironolact 2020-0 Yes 50mg Take 50 mg Univers one 50 mg 7-27 by mouth ity of tablet 13:51: daily. [address] spironolact 2020-0 Yes 50mg Take 50 mg Univers one 50 mg 7-27 by mouth ity of tablet 13:51: daily. [address] LEVOTHYROXI 2020-0 Yes [id number] TAKE 1 Univers NE 150 mcg 7-17 TABLET BY ity of tablet 00:00: MOUTH [place] 00 EVERY DAY Medical IN THE [facility] LEVOTHYROXI 2020-0 Yes [id number] TAKE 1 Univers NE 150 mcg 7-17 TABLET BY ity of tablet 00:00: MOUTH [place] 00 EVERY DAY Medical IN THE [facility] LEVOTHYROXI 2020-0 Yes [id number] TAKE 1 Univers NE 150 mcg 7-17 TABLET BY ity of tablet 00:00: MOUTH [place] 00 EVERY DAY Medical IN THE [facility] LEVOTHYROXI 2020-0 Yes [id number] TAKE 1 Univers NE 150 mcg 7-17 TABLET BY ity of tablet 00:00: MOUTH [place] 00 EVERY DAY Medical IN THE [facility] LEVOTHYROXI 2020-0 Yes [id number] TAKE 1 Univers NE 150 mcg 7-17 TABLET BY ity of tablet 00:00: MOUTH [place] 00 EVERY DAY Medical IN THE [facility] LEVOTHYROXI 2020-0 2020- No [id number] TAKE 1 Univers NE 150 mcg 7-17 08-12 TABLET BY ity of tablet 00:00: 00:00 MOUTH [place] 00 :00 EVERY DAY Medical IN THE Branch MORNING levothyroxi 2020-0 Yes [id number] TAKE 1 Univers ne 150 mcg 4-20 TABLET BY ity of tablet 00:00: MOUTH [place] 00 EVERY DAY Medical IN THE [place] MORNING levothyroxi 2019-0 Yes [id number] TAKE 1 Univers ne 150 mcg 4-20 TABLET BY ity of tablet 00:00: MOUTH [place] 00 EVERY DAY Medical IN THE [place] MORNING levothyroxi 2020-0 2020- No [id number] TAKE 1 Univers ne 150 mcg 4-20 07-17 TABLET BY ity of tablet 00:00: 00:00 MOUTH [place] 00 :00 EVERY DAY Medical IN THE [place] MORNING meloxicam Yes 15mg Take 15 mg [place] 15 mg 3-26 by mouth ity of tablet 19:43: daily. [address] spironolact Yes 50mg Take 50 mg Univers one 50 mg 3-26 by mouth ity of tablet 19:43: daily. [address] meloxicam Yes 15mg Take 15 mg [place] 15 mg 3-26 by mouth ity of tablet 19:43: daily. [address] spironolact Yes 50mg Take 50 mg Univers one 50 mg 3-26 by mouth ity of tablet 19:43: daily. [address] meloxicam Yes 15mg Take 15 mg [place] 15 mg 3-26 by mouth ity of tablet 19:43: daily. [address] meloxicam Yes 15mg Take 15 mg [place] 15 mg 3-26 by mouth ity of tablet 19:43: daily. [address] meloxicam Yes 15mg Take 15 mg [place] 15 mg 3-26 by mouth ity of tablet 19:43: daily. [address] meloxicam Yes 15mg Take 15 mg [place] 15 mg 3-26 by mouth ity of tablet 19:43: daily. [address] meloxicam 0 Yes 15mg Take 15 mg [place] 15 mg 3-26 by mouth ity of tablet 19:43: daily. [address] meloxicam 2018-0 Yes 15mg Take 15 mg [place] 15 mg 3-26 by mouth ity of tablet 19:43: daily. [address] meloxicam 2019-0 Yes 15mg Take 15 mg [place] 15 mg 3-26 by mouth ity of tablet 19:43: daily. [address] meloxicam 2018-0 Yes 15mg Take 15 mg [place] 15 mg 3-26 by mouth ity of tablet 19:43: daily. [address] meloxicam 0 Yes 15mg Take 15 mg [place] 15 mg 3-26 by mouth ity of tablet 19:43: daily. [address] meloxicam 0 Yes 15mg Take 15 mg [place] 15 mg 3-26 by mouth ity of tablet 19:43: daily. [address] meloxicam Yes 15mg Take 15 mg [place] 15 mg 3-26 by mouth ity of tablet 19:43: daily. [address] meloxicam Yes 15mg Take 15 mg [place] 15 mg 3-26 by mouth ity of tablet 19:43: daily. [address] meloxicam Yes 15mg Take 15 mg [place] 15 mg 3-26 by mouth ity of tablet 19:43: daily. [address] meloxicam Yes 15mg Take 15 mg [place] 15 mg 3-26 by mouth ity of tablet 19:43: daily. [address] meloxicam Yes 15mg Take 15 mg [place] 15 mg 3-26 by mouth ity of tablet 19:43: daily. [address] meloxicam Yes 15mg Take 15 mg [place] 15 mg 3-26 by mouth ity of tablet 19:43: daily. [address] meloxicam Yes 15mg Take 15 mg [place] 15 mg 3-26 by mouth ity of tablet 19:43: daily. [address] meloxicam Yes 15mg Take 15 mg [place] 15 mg 3-26 by mouth ity of tablet 19:43: daily. [address] meloxicam 0 Yes 15mg Take 15 mg [place] 15 mg 3-26 by mouth ity of tablet 19:43: daily. [address] spironolact Yes 50mg Take 50 mg Univers one 50 mg 3-26 by mouth ity of tablet 19:43: daily. [address] meloxicam Yes 15mg Take 15 mg [place] 15 mg 3-26 by mouth ity of tablet 19:43: daily. [address] spironolact Yes 50mg Take 50 mg Univers one 50 mg 3-26 by mouth ity of tablet 19:43: daily. [address] levothyroxi 2020- No [id number] TAKE 1 Univers ne 150 mcg 3-26 04-20 TABLET BY ity of tablet 00:00: 00:00 MOUTH [place] 00 :00 EVERY DAY Medical IN THE Branch MORNING carvedilol Yes [id number] 3.125mg Take 1 Univers (COREG) 8-02 tablet by ity of 3.125 mg 00:00: mouth 2 [place] tablet 00 (two) Medical times Branch daily with meals. carvedilol Yes [id number] 3.125mg Take 1 Univers (COREG) 8-02 tablet by ity of 3.125 mg 00:00: mouth 2 [place] tablet 00 (two) Medical times Branch daily with meals. carvedilol Yes [id number] 3.125mg Take 1 Univers (COREG) 8-02 tablet by ity of 3.125 mg 00:00: mouth 2 [place] tablet 00 (two) Medical times Branch daily with meals. carvedilol Yes [id number] 3.125mg Take 1 Univers (COREG) 8-02 tablet by ity of 3.125 mg 00:00: mouth 2 [place] tablet 00 (two) Medical times Branch daily with meals. carvedilol Yes [id number] 3.125mg Take 1 Univers (COREG) 8-02 tablet by ity of 3.125 mg 00:00: mouth 2 [place] tablet 00 (two) Medical times Branch daily with meals. carvedilol Yes [id number] 3.125mg Take 1 Univers (COREG) 8-02 tablet by ity of 3.125 mg 00:00: mouth 2 [place] tablet 00 (two) Medical times Branch daily with meals. carvedilol Yes [id number] 3.125mg Take 1 Univers (COREG) 8-02 tablet by ity of 3.125 mg 00:00: mouth 2 [place] tablet 00 (two) Medical times Branch daily with meals. carvedilol Yes [id number] 3.125mg Take 1 Univers (COREG) 8-02 tablet by ity of 3.125 mg 00:00: mouth 2 [place] tablet 00 (two) Medical times Branch daily with meals. carvedilol Yes [id number] 3.125mg Take 1 Univers (COREG) 8-02 tablet by ity of 3.125 mg 00:00: mouth 2 [place] tablet 00 (two) Medical times Branch daily with meals. carvedilol Yes [id number] 3.125mg Take 1 Univers (COREG) 8-02 tablet by ity of 3.125 mg 00:00: mouth 2 [place] tablet 00 (two) Medical times Branch daily with meals. carvedilol Yes [id number] 3.125mg Take 1 Univers (COREG) 8-02 tablet by ity of 3.125 mg 00:00: mouth 2 [place] tablet 00 (two) Medical times Branch daily with meals. carvedilol Yes [id number] 3.125mg Take 1 Univers (COREG) 8-02 tablet by ity of 3.125 mg 00:00: mouth 2 [place] tablet 00 (two) Medical times Branch daily with meals. carvedilol Yes [id number] 3.125mg Take 1 Univers (COREG) 8-02 tablet by ity of 3.125 mg 00:00: mouth 2 [place] tablet 00 (two) Medical times Branch daily with meals. carvedilol Yes [id number] 3.125mg Take 1 Univers (COREG) 8-02 tablet by ity of 3.125 mg 00:00: mouth 2 [place] tablet 00 (two) Medical times Branch daily with meals. carvedilol Yes [id number] 3.125mg Take 1 Univers (COREG) 8-02 tablet by ity of 3.125 mg 00:00: mouth 2 [place] tablet 00 (two) Medical times Branch daily with meals. carvedilol Yes [id number] 3.125mg Take 1 Univers (COREG) 8-02 tablet by ity of 3.125 mg 00:00: mouth 2 [place] tablet 00 (two) Medical times Branch daily with meals. carvedilol Yes [id number] 3.125mg Take 1 Univers (COREG) 8-02 tablet by ity of 3.125 mg 00:00: mouth 2 [place] tablet 00 (two) Medical times Branch daily with meals. carvedilol 2016-0 Yes [id number] 3.125mg Take 1 Univers (COREG) 8-02 tablet by ity of 3.125 mg 00:00: mouth 2 [place] tablet 00 (two) Medical times Branch daily with meals. carvedilol 2016-0 Yes [id number] 3.125mg Take 1 Univers (COREG) 8-02 tablet by ity of 3.125 mg 00:00: mouth 2 [place] tablet 00 (two) Medical times Branch daily with meals. carvedilol 2016- Yes [id number] 3.125mg Take 1 Univers (COREG) 8-02 tablet by ity of 3.125 mg 00:00: mouth 2 [place] tablet 00 (two) Medical times Branch daily with meals. carvedilol 2016- Yes [id number] 3.125mg Take 1 Univers (COREG) 8-02 tablet by ity of 3.125 mg 00:00: mouth 2 [place] tablet 00 (two) Medical times Branch daily with meals. carvedilol 2016- Yes [id number] 3.125mg Take 1 Univers (COREG) 8-02 tablet by ity of 3.125 mg 00:00: mouth 2 [place] tablet 00 (two) Medical times Branch daily with meals. carvedilol 2016-0 Yes [id number] 3.125mg Take 1 Univers (COREG) 8-02 tablet by ity of 3.125 mg 00:00: mouth 2 [place] tablet 00 (two) Medical times Branch daily with meals. carvedilol 2016-0 Yes [id number] 3.125mg Take 1 Univers (COREG) 8-02 tablet by ity of 3.125 mg 00:00: mouth 2 [place] tablet 00 (two) Medical times Branch daily with meals. carvedilol 2016-0 Yes [id number] 3.125mg Take 1 Univers (COREG) 8-02 tablet by ity of 3.125 mg 00:00: mouth 2 [place] tablet 00 (two) Medical times Branch daily with meals. carvedilol 2016-0 Yes [id number] 3.125mg Take 1 Univers (COREG) 8-02 tablet by ity of 3.125 mg 00:00: mouth 2 [place] tablet 00 (two) Medical times Branch daily with meals. carvedilol Yes [id number] 3.125mg Take 1 Univers (COREG) 8-02 tablet by ity of 3.125 mg 00:00: mouth 2 [place] tablet 00 (two) Medical times Branch daily with meals. carvedilol Yes [id number] 3.125mg Take 1 Univers (COREG) 8-02 tablet by ity of 3.125 mg 00:00: mouth 2 [place] tablet 00 (two) Medical times Branch daily with meals. carvedilol Yes [id number] 3.125mg Take 1 Univers (COREG) 8-02 tablet by ity of 3.125 mg 00:00: mouth 2 [place] tablet 00 (two) Medical times Branch daily with meals. simvastatin Yes [id number] 40mg Take 1 Tab Univers (ZOCOR) 40 2-02 by mouth ity o f mg tablet 00:00: at [place] [address] bedtime. Medical Branch simvastatin Yes [id number] 40mg Take 1 Tab Univers (ZOCOR) 40 2-02 by mouth ity o f mg tablet 00:00: at [place] [address] bedtime. Medical Branch simvastatin Yes [id number] 40mg Take 1 Tab Univers (ZOCOR) 40 2-02 by mouth ity o f mg tablet 00:00: at [place] 00 bedtime. Medical Branch simvastatin 2016 Yes [id number] 40mg Take 1 Tab Univers (ZOCOR) 40 2-02 by mouth ity o f mg tablet 00:00: at [place] 00 bedtime. Medical Branch simvastatin 2016-0 Yes [id number] 40mg Take 1 Tab Univers (ZOCOR) 40 2-02 by mouth ity o f mg tablet 00:00: at [place] 00 bedtime. Medical Branch simvastatin 0 Yes [id number] 40mg Take 1 Tab Univers (ZOCOR) 40 2-02 by mouth ity o f mg tablet 00:00: at [place] 00 bedtime. Medical Branch simvastatin 2016-0 Yes [id number] 40mg Take 1 Tab Univers (ZOCOR) 40 2-02 by mouth ity o f mg tablet 00:00: at [place] 00 bedtime. Medical Branch simvastatin 2015- Yes [id number] 40mg Take 1 Tab Univers (ZOCOR) 40 2-02 by mouth ity o f mg tablet 00:00: at [place] 00 bedtime. [facility] Branch simvastatin 2016-0 Yes [id number] 40mg Take 1 Tab Univers (ZOCOR) 40 2-02 by mouth ity o f mg tablet 00:00: at [place] 00 bedtime. [facility] Branch simvastatin 2016-0 Yes [id number] 40mg Take 1 Tab Univers (ZOCOR) 40 2-02 by mouth ity o f mg tablet 00:00: at [place] 00 bedtime. [facility] Branch simvastatin 2016-0 Yes [id number] 40mg Take 1 Tab Univers (ZOCOR) 40 2-02 by mouth ity o f mg tablet 00:00: at [place] 00 bedtime. [facility] Branch simvastatin 2015-0 Yes [id number] 40mg Take 1 Tab Univers (ZOCOR) 40 2-02 by mouth ity o f mg tablet 00:00: at [place] 00 bedtime. [facility] Branch simvastatin 2015-0 Yes [id number] 40mg Take 1 Tab Univers (ZOCOR) 40 2-02 by mouth ity o f mg tablet 00:00: at [place] 00 bedtime. [facility] Branch simvastatin 2016-0 Yes [id number] 40mg Take 1 Tab Univers (ZOCOR) 40 2-02 by mouth ity o f mg tablet 00:00: at [place] 00 bedtime. [facility] Branch simvastatin 2016-0 Yes [id number] 40mg Take 1 Tab Univers (ZOCOR) 40 2-02 by mouth ity o f mg tablet 00:00: at [place] 00 bedtime. [facility] Branch simvastatin 2016-0 Yes [id number] 40mg Take 1 Tab Univers (ZOCOR) 40 2-02 by mouth ity o f mg tablet 00:00: at [place] 00 bedtime. [facility] Branch simvastatin 2016-0 Yes [id number] 40mg Take 1 Tab Univers (ZOCOR) 40 2-02 by mouth ity o f mg tablet 00:00: at [place] 00 bedtime. [facility] Branch simvastatin 2016-0 Yes [id number] 40mg Take 1 Tab Univers (ZOCOR) 40 2-02 by mouth ity o f mg tablet 00:00: at [place] 00 bedtime. [facility] Branch simvastatin 2016-0 Yes [id number] 40mg Take 1 Tab Univers (ZOCOR) 40 2-02 by mouth ity o f mg tablet 00:00: at [place] 00 bedtime. [facility] Branch simvastatin 2016-0 Yes [id number] 40mg Take 1 Tab Univers (ZOCOR) 40 2-02 by mouth ity o f mg tablet 00:00: at [place] 00 bedtime. Medical Branch simvastatin Yes [id number] 40mg Take 1 Tab Univers (ZOCOR) 40 2-02 by mouth ity o f mg tablet 00:00: at [place] 00 bedtime. Medical Branch simvastatin Yes [id number] 40mg Take 1 Tab Univers (ZOCOR) 40 2-02 by mouth ity o f mg tablet 00:00: at [place] 00 bedtime. Medical Branch simvastatin Yes [id number] 40mg Take 1 Tab Univers (ZOCOR) 40 2-02 by mouth ity o f mg tablet 00:00: at [place] 00 bedtime. Medical Branch simvastatin Yes [id number] 40mg Take 1 Tab Univers (ZOCOR) 40 2-02 by mouth ity o f mg tablet 00:00: at [place] 00 bedtime. Medical Branch simvastatin Yes [id number] 40mg Take 1 Tab Univers (ZOCOR) 40 2-02 by mouth ity o f mg tablet 00:00: at [place] 00 bedtime. Medical Branch simvastatin Yes [id number] 40mg Take 1 Tab Univers (ZOCOR) 40 2-02 by mouth ity o f mg tablet 00:00: at [place] 00 bedtime. Medical Branch simvastatin Yes [id number] 40mg Take 1 Tab Univers (ZOCOR) 40 2-02 by mouth ity o f mg tablet 00:00: at [place] 00 bedtime. Medical Branch simvastatin Yes [id number] 40mg Take 1 Tab Univers (ZOCOR) 40 2-02 by mouth ity o f mg tablet 00:00: at [place] 00 bedtime. Medical Branch simvastatin Yes [id number] 40mg Take 1 Tab Univers (ZOCOR) 40 2-02 by mouth ity o f mg tablet 00:00: at [place] 00 bedtime. [facility] Branch Vital Signs Vital Name Observation Time Observation Value Comments Source Systolic blood 2021-01-15 19:23:00 118 mm[Hg] Univer sity of pressure [facility] Diastolic blood 2021-01-15 19:23:00 78 mm[Hg] Unive rsity of pressure [place] [facility] Heart rate 2021-01-15 19:23:00 59 /min [facility] [place] [facility] Respiratory rate 2021-01-15 19:23:00 19 /min Univ ersity of [facility] Body height 2021-01-15 19:23:00 172.7 cm [facility] [place] [facility] Body weight 2021-01-15 19:23:00 142.974 kg [facility] [place] [facility] BMI 2021-01-15 19:23:00 47.93 kg/m2 Universi ty of [facility] Branch Systolic blood 2020-05-08 13:53:00 138 mm[Hg] Univer sity of pressure [place] [facility] Diastolic blood 2020-05-08 13:53:00 86 mm[Hg] Unive rsity of pressure [facility] Branch Heart rate 2020-05-08 13:53:00 80 /min [facility] [place] [facility] Body temperature 2020-05-08 13:53:00 37.28 Jinny [facility] ersity of [facility] Respiratory rate 2020-05-08 13:53:00 18 /min Univ ersity of [place] [facility] Body height 2020-05-08 13:53:00 172.7 cm [facility] [place] [facility] Body weight 2020-05-08 13:53:00 127.007 kg [facility] [place] [facility] BMI 2020-05-08 13:53:00 42.57 kg/m2 [facility] [place] [facility] Oxygen saturation in 2020-05-08 13:53:00 97 /min [facility] Arterial blood by [facility] Pulse oximetry Branch Procedures Procedure Date / Time Performed Performing Clinician Christiano e EXTERNAL PROVIDER 2021-06-01 05:01:00 Doctor Unassigned, No Univ ersity of [place] RECORDS Name Medical Branch EXTERNAL PROVIDER 2021-04-26 05:01:00 Doctor Unassigned, No Univ [facility] of [place] RECORDS Name Medical Branch US LIVER 2021-04-11 16:17:00 Simran Bacon Dewey o f [facility] US HEAD NECK 2021-01-22 20:36:53 Demetrio Marion [facility] Encounters Start End Encounter Admission Attending Care Care Encounter Source Date/Time Date/Time Type Type Clinicians Facility Department ID 2022-01-14 2022-01-14 Outpatient R DONI [facility] [id number] Univers 15:00:00 15:00:00 DEMETRIO ity [facility] 2021-06-01 2021-06-01 Orders Doctor LEAH 1.2.840.114 [id number] Univers 00:00:00 00:00:00 Only Unassigned, TODD 350.1.13.10 ity of [place] [facility] 4.2.7.2.686 Jv as [phone] [address] 2021-05-14 2021-05-14 Outpatient R [facility] [id number] Univers 08:45:00 08:45:00 SIMRAN itmaggy [facility] 2021-04-26 2021-04-26 Orders Doctor LEAH 1.2.840.114 [id number] Univers 00:00:00 00:00:00 Only Unassigned, TODD 350.1.13.10 ity of [place] [facility] 4.2.7.2.686 Jv as [phone] [address] 2021-04-25 2021-04-25 Ancillary Monik Fuller [facility] 1 .2.840.114 [id number] Univers 14:57:27 15:47:36 Visit Alfredo White [id number] [place] [phone] [facility] [address] 2021-04-25 2021-04-25 Outpatient [facility] [id number] Univers 15:00:00 15:00:00 ALFREDO cedeño [facility] 2021-04-20 2021-04-20 [facility] 1.2.840.114 [id number] Univers 00:00:00 00:00:00 [facility] [id number] it y of [place] 4.2.7.2.686 [place] Tucker [phone] [address] Office Building 2021-04-18 2021-04-18 Outpatient Lyly WHITE [facility] [id number] Univers 13:40:00 13:40:00 ALFREDO cedeño [facility] 2021-04-11 2021-04-11 [facility] 1.2.840.114 [id number] Univers 10:58:11 23:59:00 Encounter Simran SPECIALTY [id number] [place] [phone] Or ron REEVESY [address] [facility] 2021-04-11 2021-04-11 [facility] 1.2.840.114 [id number] Univers 10:57:50 10:57:50 Encounter Simran SPECIALTY [id number] [place] [phone] Or ron NERI [address] [place] [address] 2021-04-11 2021-04-11 Outpatient R [facility] [id number] Univers 00:00:00 00:00:00 SIMRAN ity [facility] 2021-04-04 2021-04-04 Microscopist Vls-Lab [facility] 1.2.840.114 [id number] Univers 13:05:05 13:20:05 Visit Simran Bacon [id number] it[place] [phone] Or ron NERI [facility] 2021-04-04 2021-04-04 Outpatient R [facility] [id number] Univers 09:00:00 09:00:00 SIMRAN ity [facility] 2021-01-23 2021-01-23 [facility] 1.2.840.114 [id number] Univers 00:00:00 00:00:00 Demetrio Moreno 350.1.13.10 [place] [phone] Or ron means [facility] 2021-01-22 2021-01-22 [facility] 1.2.840.114 [id number] Univers 15:04:59 23:59:00 Encounter Demetrio [place] [id number] [place].2.[place] [phone] [address] 2021-01-22 2021-01-22 Outpatient R DONI [facility] [id number] Univers 00:00:00 00:00:00 DEMETRIO maggy [facility] 2021-01-19 2021-01-19 Patient Doni [facility] 1.2.840.114 [id number] Univers 00:00:00 00:00:00 Secure Msg Demetrio More[place] [id number] [place] [phone] Or dical nal [address] [facility] 2021-01-15 2021-01-15 Microscopist 2, Adc Lab [facility] 1.2.840.114 [id number] Univers 15:02:26 15:17:26 Visit Demetrio Marion Tiffanie 350.1.13.10 [place] [phone] [facility] 2021-01-15 2021-01-15 Office [facility] 1.2.840.114 [id number] Univers 14:02:19 14:32:19 Visit Demetrio Moreno 350.1.13.10 [place]2.[place] [phone] Or dical [facility] 2021-01-15 2021-01-15 [facility] [id number] Univers 14:00:00 14:00:00 DEMETRIO [facility] 2021-01-01 2021-01-01 Outpatient R DONI [facility] [id number] Univers 10:00:00 10:00:00 DEMETRIO [facility] 2020-12-05 2020-12-05 Telephone [facility] 1.2.840.114 [id number] Univers 00:00:00 00:00:00 Demetrio [place] 350.1.13.10 i [place]2.[place] [phone] Or dic[address] 2020-12-01 2020-12-01 [facility]ill [facility] 1.2.840.114 [id number] Univers 00:00:00 00:00:00 Demetrio [place] 350.1.13.10 i [place]2.[place] [phone] [address] 2020-09-28 2020-09-28 [facility] 1.2.840.114 [id number] Univers 00:00:00 00:00:00 Demetrio [place] 350.1.13.10 [place].2.[place] [phone] [address] 2020-06-20 2020-06-20 Telephone [facility] 1.2.840.114 [id number] Univers 00:00:00 00:00:00 Demetrio [place] 350.1.13.10 i [place]2.[place] [phone] [address] 2020-06-16 2020-06-16 [facility] 1.2.840.114 [id number] Univers 00:00:00 00:00:00 Demetrio [place] 350.1.13.10 [place]2.[place] [phone] [address] 2020-05-29 2020-05-29 Outpatient R DONI [facility] [id number] Univers 16:00:00 16:00:00 DEMETRIO ity [facility] 2020-05-24 2020-05-24 [facility] 1.2.840.114 [id number] Univers 00:00:00 00:00:00 Demetrio [place] 350.1.13.10 i [place] [phone] [address] 2020-05-09 2020-05-09 Telephone Alondra [facility] 1.2.840.114 [id number] Univers 00:00:00 00:00:00 [facility] [id number] it y of [place] 4.2.7.2.686 [place]v as Professio [phone] [address] 2020-05-09 2020-05-09 Telephone Alondra [facility] 1.2.840.114 [id number] Univers 00:00:00 00:00:00 [facility] [id number] it y of [place] 4.2.7.2.686 [place]v as Professio [phone] [address] 2020-05-08 2020-05-08 Urgent Pob1, Acute Care Clinic [facility] 1. 2.840.114 [id number] Univers 08:47:49 09:07:49 [facility] 350.1.13.10 ity of [place] 4.2.7.2.686 [place] as Professio [phone] [address] 2020-05-08 2020-05-08 Outpatient R ALONDRA [facility] [id number] Univers 08:40:00 08:40:00 [facility] ity of [facility] 2020-05-08 2020-05-08 Letter Doctor LEAH 1.2.840.114 [id number] Univers 00:00:00 00:00:00 (Out) Unassigned, TODD 350.1.13.10 ity of [place] [facility] 4.2.7.2.686 Jv as [phone] [address] 2020-04-27 2020-04-27 Refill Doni [facility] 1.2.840.114 [id number] Univers 00:00:00 00:00:00 Demetrio Moreno 350.1.13.10 [place] [phone] [facility] 2020-02-14 2020-02-14 Telemedici Doni [facility] 1.2.840.114 [id number] Univers 13:10:59 16:24:17 ne Visit Demetrio Moreno 350.1.13.10 [place]2.[place] [phone] [address] 2020-02-14 2020-02-14 Telemedici [facility] 1.2.840.114 [id number] 13:10:59 16:24:17 ne Visit Demetrio [place] 350.1.13.10 [place] 4.2.7.2.686 Professio [phone] [address] 2020-02-14 2020-02-14 Outpatient [facility] [id number] Univers 15:30:00 15:30:00 [facility] 2020-01-31 2020-01-31 [facility] 1.2.840.114 [id number] [facility] 00:00:00 00:00:00 Demetrio Moreno 350.1.13.10 [place] [phone] [address] 2020-01-31 2020-01-31 Refill [facility] 1.2.840.114 [id number] 00:00:00 00:00:00 Demetrio Moreno 350.1.13.10 [place] 4.2.7.2.686 Professio [phone] [address] 2020-01-17 2020-01-17 Outpatient [facility] [id number] Univers 16:00:00 16:00:00 [facility] Results Test Description Test Time Test Comments Results Result [facility] e Comments US LIVER 2021-03-15 1. ?Limited University o f 0 [place] of [place] dical 22:08:29 the hepatic Branch parenchyma given [...] was evaluated withcolor and spectral Doppler imaging. Call Circuit Worker images were obtained forthe record. COMPARISON: None [...] portions of the right kidney are unremarkable. [facility], Radiant Results Inft User - 04/11/2021 5:09 PM CDT EXAM: US LIVERHISTORY: 50 years-old Female with morbid obesity. Evaluate for fatty liverdisease .TECHNIQUE: Limited abdominal ultrasound was performed focused on the liver,biliary system, pancreas and spleen. Main portal vein was evaluated withcolor and spectral Doppler imaging. Call Circuit Worker images were obtained forthe record.COMPARISON: NoneFINDINGS:LIVER: Length: [...] abovereport. US HEAD NECK 2021-01-11 Status post [place] [address] thyroidectomy. No [facility] 20:50:10 recurrent or Branch residual [...] adjacent bilateral neck, likely reactive andsimilar prior. [facility], Radiant Results Inft User - 01/22/2021 3:51 [...]
[2023-04-03 07:00] LABS: Absolute Lymphocytes (CBC) 1.6 K/uL (0.7-4.9); Hematocrit 46.5 % (36.0-45.0); Lymphocytes % 27.3 % (15.3-44.8); MCV 88.9 fL (80-100); MPV 7.8 fL (7.6-11.3); RBC Red Blood Cell Count 5.23 M/uL (3.86-4.86)
[2023-04-03 07:02] LABS: Protime INR 1.11
[2023-04-03 07:18] LABS: Albumin 3.9 g/dL (3.4-5.0); Bilirubin Direct 0.2 mg/dL (0-0.2); Bilirubin Indirect, Calculated 0.6 mg/dL (0.2-0.8); Bilirubin Total 0.8 mg/dL (0.2-1.0); Magnesium 2.3 mg/dL (1.6-2.4); Potassium 3.9 mEq/L (3.5-5.1); Protein, Total 7.9 g/dL (6.4-8.2); Troponin High Sensitivity 13.4 pg/mL (<58.9)
--- NOTE | 2023-04-03 07:27 | RAD REPORT ---
EXAM DESCRIPTION: Kristan Single View04/03/2023 6:31 am CLINICAL HISTORY: Chest pain COMPARISON: February 2023 FINDINGS: The lungs appear clear of acute infiltrate. The heart is normal size IMPRESSION: No acute abnormalities displayed
[2023-04-03 08:37] LABS: Specific Gravity < 1.005 (1.005-1.030); Urine Bilirubin NEGATIVE (Negative); Urine Blood Negative (Negative); Urine Clarity Clear (Clear); Urine Color Colorless (Yellow); Urine Glucose NEGATIVE (Negative); Urine Protein NEGATIVE (Negative); Urine Urobilinogen Normal (Normal)
--- NOTE | 2023-04-03 08:48 | ER ---
Nurse's Notes [facility] Name: Nika Low Age: 52 yrs Sex: Female : 1970 Arrival Date: 04/03/2023 Time: 05:59 Bed 20 Private MD: Diagnosis: Weakness;Bradycardia, unspecified Presentation: 04/03 06:08 Chief complaint: Patient states: "My blood pressure has been high and my heart rate has as6 been low" pt c/o SOB x1 week and chest tightness that started today. Coronavirus screen: At this time, the client does not indicate any symptoms associated with coronavirus-19. Ebola Screen: No symptoms or risks identified at this time. Initial Sepsis Screen: Does the patient meet any 2 criteria? No. Patient's initial sepsis screen is negative. Does the patient have a suspected source of infection? No. Patient's initial sepsis screen is negative. Risk Assessment: Do you want to hurt yourself or someone else? Patient reports no desire to harm self or others. Onset of symptoms was April 03, 2023. 06:08 Method Of Arrival: Ambulatory as6 06:08 Acuity: GRANT 3 as6 DANCE STUDIO MANAGER: 06:10 LMP N/A - Hysterectomy as6 Historical: - Allergies: 06:10 caffeine; as6 06:10 Sudafed; as6 06:10 zpack; as6 - PMHx: 06:10 bigemeny arrythmia; Bigeminy Arrythmia; High Cholesterol; Hypothyroidism; Thyroid as6 problem; - PSHx: 06:10 Thyroidectomy; Total abdominal hysterectomy; as6 - Immunization history:: Client reports having NOT received the Covid vaccine. - Social history:: Smoking status: Patient denies any tobacco usage or history of. - Family history:: not pertinent. Screenin:57 [facility] ED Fall Risk Assessment (Adult) History of falling in the last 3 months, ll3 including since admission No falls in past 3 months (0 pts) Confusion or Disorientation No (0 pts) Intoxicated or Sedated No (0 pts) Impaired Gait No (0 pts) Mobility Assist Device Used No (0 pt) Altered Elimination No (0 pt) Score/Fall Risk Level 0 - 2 = Low Risk Oriented to surroundings, Maintained a safe environment, Educated pt \\T\\ family on fall prevention, incl call for assistance when getting out of bed. Abuse screen: Denies threats or abuse. Denies injuries from another. Nutritional screening: No deficits noted. Tuberculosis screening: No symptoms or risk factors identified. Assessment: 06:56 General: Appears uncomfortable, Behavior is calm, cooperative. Pain: Denies pain. ll3 Neuro: Level of Consciousness is awake, alert, obeys commands, Oriented to person, place, time, situation. Cardiovascular: Reports shortness of breath, chest pressure, denies pain since Friday Patient's skin is warm and dry. Rhythm is sinus bradycardia Chest pain is denied. Cardiovascular: Reports low HR. Respiratory: Reports shortness of breath since friday Respiratory effort is even, unlabored, Respiratory pattern is regular, symmetrical. 11:09 Pain: Pain began a week ago. ko1 11:09 Pain: Pain does not radiate. ko1 Vital Signs: 06:08 BP 144 / 69; Pulse 57; Resp 16 S; Temp 98.1(O); Pulse Ox 98% on R/A; Weight 139.25 kg as6 (R); Height 5 ft. 8 in. (R); Pain 0/10; 07:12 BP 118 / 42; Pulse 49; Resp 18; Pulse Ox 99% ; ko1 07:27 BP 122 / 77; Pulse 46; Resp 16; Pulse Ox 99% on R/A; ko1 09:55 BP 130 / 55; Pulse 53; Resp 18; Pulse Ox 100% ; ko1 06:08 Body Mass Index 46.68 (139.25 kg, 172.72 cm) as6 06:08 Pain Scale: Adult as6 ED Course: 06:02 Patient arrived in ED. ag3 06:07 Yobani Mcgarry MD is Attending Physician. sp4 06:10 Triage completed. as6 06:11 Arm band placed on. as6 06:33 XRAY Chest (1 view) In Process Unspecified. EDMS 06:44 Inserted saline lock: 22 gauge in right antecubital area, using aseptic technique. ah1 Blood collected. 06:45 CBC with Diff Sent. ah1 06:46 Basic Metabolic Panel Sent. ah1 06:46 LFT's Sent. ah1 06:46 Magnesium Sent. ah1 06:46 NT PRO-BNP Sent. ah1 06:46 PT-INR Sent. ah1 06:46 Troponin HS Sent. 1 06:57 Patient has correct armband on for positive identification. Placed in gown. Bed in low ll3 position. Call light in reach. Side rails up X 1. Client placed on continuous cardiac and pulse oximetry monitoring. NIBP monitoring applied. 06:57 Patient maintains SpO2 saturation greater than 95% on room air. ll3 07:08 Torie Morgan, RN is Primary Nurse. ko1 07:25 Attending Physician role handed off by Yobani Mcgarry MD kdr 07:25 Alber Power MD is Attending Physician. kdr 08:46 Jeet Tucker MD is Hospitalizing Provider. kdr 10:32 Troponin High Sensitivity Sent. kj1 11:07 No provider procedures requiring assistance completed. Patient admitted, IV remains in ko1 place. Administered Medications: No medications were administered Medication: 11:07 VIS not applicable for this client. ko1 Outcome: 08:47 Decision to Hospitalize by Provider. kdr 11:07 Admitted to Tele accompanied by [facility], via wheelchair, room 208, with chart, Report ko1 called to Radha 11:07 Condition: good 11:07 Instructed on the need for admit. 11:18 Patient left the ED. ko1 Signatures: Dispatcher [employer] EDMS Alber Power MD MD [facility] Vikki Brito Evie Lopez kj1 Jae Rodriguez RN RN as6 Shmuel Black RN RN ll3 Torie Morgan, RN RN ko1 Yobani Mcgarry MD MD 4 Ty [facility] Corrections: (The following items were deleted from the chart) 06:53 06:45 PROTIME (+INR)+COAG.LAB.BRZ drawn and sent. [facility] EDMS 06:53 06:46 CBC+H.LAB.BRZ drawn and sent. [facility] EDMS 06:54 06:46 COMPREHENSIVE METABOLIC PANEL+C.LAB.BRZ drawn and sent. [facility] EDMS 06:54 06:46 LIPASE+C.LAB.BRZ drawn and sent. [facility] EDMS 07:59 06:45 BASIC METABOLIC PANEL+C.LAB.BRZ drawn and sent. [facility] EDMS 07:59 06:45 HEPATIC FUNCTION+C.LAB.BRZ drawn and sent. [facility] EDMS 07:59 06:45 MAGNESIUM+C.LAB.BRZ drawn and sent. [facility] EDWY 07:59 06:45 PROBNP+C.LAB.BRZ drawn and sent. [facility] EDWY 07:59 06:45 Troponin High Sensitivity+C.LAB.BRZ drawn and sent. [address]
--- NOTE | 2023-04-03 08:48 | EDPHYS ---
Physician Documentation [facility] Name: Nika Low Age: 52 yrs Sex: Female : 1970 Arrival Date: 04/03/2023 Time: 05:59 Bed 20 Private MD: ED Physician Alber Power HPI: 04/03 06:07 This 52 yrs old Female presents to ER via Unassigned with complaints of sp4 Irregular Pulse, High Blood Pressure. 06:26 52-year-old female with past medical history of morbid obesity, arrhythmia, high sp4 cholesterol, congestive heart failure, hypertension, presents with elevated blood pressure this morning 160 systolic over 100, associated with chest pain shortness of breath, near syncopal episode after her shower. . RESERVATIONS MANAGER: 06:10 LMP N/A - Hysterectomy as6 Historical: - Allergies: 06:10 caffeine; as6 06:10 Sudafed; as6 06:10 zpack; as6 - PMHx: 06:10 bigemeny arrythmia; Bigeminy Arrythmia; High Cholesterol; Hypothyroidism; Thyroid as6 problem; - PSHx: 06:10 Thyroidectomy; Total abdominal hysterectomy; as6 - Immunization history:: Client reports having NOT received the Covid vaccine. - Social history:: Smoking status: Patient denies any tobacco usage or history of. - Family history:: not pertinent. ROS: 06:26 Constitutional: Negative for fever, chills, and weight loss, positive for near syncopal sp4 episode. Eyes: Negative for injury, pain, redness, and discharge, ENT: Negative for injury, pain, and discharge, Neck: Negative for injury, pain, and swelling, Cardiovascular: Negative for palpitations, and edema, positive chest pain. Respiratory: Negative for cough, wheezing, and pleuritic chest pain, positive shortness of breath Abdomen/GI: Negative for abdominal pain, nausea, vomiting, diarrhea, and constipation, Back: Negative for injury and pain, : Negative for injury, bleeding, discharge, and swelling, MS/Extremity: Negative for injury and deformity, Skin: Negative for injury, rash, and discoloration, Neuro: Negative for headache, weakness, numbness, tingling, and seizure, Psych: Negative for depression, anxiety, Allergy/Immunology: Negative for hives, rash, and allergies Endocrine: Negative for neck swelling, polydipsia, polyuria, polyphagia, and weight changes Hematologic/Lymphatic: Negative for swollen nodes, abnormal bleeding, and unusual bruising Exam: 06:26 Constitutional: This is a well developed, well nourished patient who is awake, alert, sp4 and in no acute distress. Head/Face: Normocephalic, atraumatic. Eyes: Pupils equal round and reactive to light, extra-ocular motions intact. Lids and lashes normal. Conjunctiva and sclera are not injected. Cornea within normal limits. Periorbital areas with no swelling, redness, or edema. ENT: Nares patent. No nasal discharge, no septal abnormalities noted. Tympanic membranes are normal and external auditory canals are clear. Oropharynx with no redness, swelling, or masses, exudates, or evidence of obstruction, uvula midline. Mucous membranes moist. Neck: Trachea midline, no thyromegaly or masses palpated, and no cervical lymphadenopathy. Supple, full range of motion without nuchal rigidity, or vertebral point tenderness. Chest/axilla: Normal chest wall appearance and motion. Nontender with no deformity. No lesions are appreciated. Cardiovascular: Regular rhythm with a normal S1 and S2. No gallops, murmurs, or rubs. Normal PMI, no JVD. No pulse deficits. Patient is bradycardic Respiratory: Lungs have equal breath sounds bilaterally, clear to auscultation and percussion. No rales, rhonchi or wheezes noted. No increased work of breathing, no retractions or nasal flaring. Abdomen/GI: Soft, non-tender, with normal bowel sounds. No distension or tympany. No guarding or rebound. No evidence of tenderness throughout. Back: No spinal tenderness. No costovertebral tenderness. Skin: Warm, dry with normal turgor. Normal color with no rashes, no lesions, and no evidence of cellulitis. MS/ Extremity: Pulses equal, no cyanosis. Neurovascular intact. Full, normal range of motion. Neuro: Awake and alert, GCS 15, oriented to person, place, time, and situation. Cranial nerves II-XII grossly intact. Motor strength 5/5 in all extremities. Sensory grossly intact. Psych: Awake, alert, with orientation to person, place and time. Behavior, mood, and affect are within normal limits 06:26 ECG was reviewed by the Attending Physician. EKG reveals sinus bradycardia at rate of 51, EKG time 0 622. There is left axis deviation. Otherwise normal EKG, no ectopy Vital Signs: 06:08 BP 144 / 69; Pulse 57; Resp 16 S; Temp 98.1(O); Pulse Ox 98% on R/A; Weight 139.25 kg as6 (R); Height 5 ft. 8 in. (R); Pain 0/10; 07:12 BP 118 / 42; Pulse 49; Resp 18; Pulse Ox 99% ; ko1 07:27 BP 122 / 77; Pulse 46; Resp 16; Pulse Ox 99% on R/A; ko1 09:55 BP 130 / 55; Pulse 53; Resp 18; Pulse Ox 100% ; ko1 06:08 Body Mass Index 46.68 (139.25 kg, 172.72 cm) as6 06:08 Pain Scale: Adult as6 MDM: 06:26 Patient medically screened. sp4 06:30 Differential diagnosis: hypertensive crisis, Malignant HTN. Data reviewed: vital signs, sp4 nurses notes, old medical records, lab test result(s), EKG, radiologic studies, plain films. 07:22 Transition of care: After a detail discussion of the patient's case, care is sp4 transferred to Alber Power MD. 08:47 ED course: Patient continues to be stable in the ED and without further complication. kdr Her rate continues to be in the mid to low 40s. I discussed with Dr. Tucker and he has agreed to accept her in as an admission. We will hold her beta-oriana for now.. 04/03 06:09 Order name: Urinalysis w/ reflexes; Complete Time: 08:38 sp4 04/03 06:15 Order name: Basic Metabolic Panel; Complete Time: 07:22 04/03 06:15 Order name: LFT's; Complete Time: 07:22 04/03 06:15 Order name: Magnesium; Complete Time: 07:22 04/03 06:15 Order name: NT PRO-BNP; Complete Time: 07:22 04/03 06:15 Order name: PT-INR; Complete Time: 07:22 04/03 06:15 Order name: Troponin HS; Complete Time: 07:22 04/03 06:21 Order name: CBC with Diff; Complete Time: 07:22 sp4 04/03 10:09 Order name: Basic Metabolic Panel EDMS 04/03 10:09 Order name: Basic Metabolic Panel EDMS 04/03 10:09 Order name: CBC with Automated Diff EDMS 04/03 10:09 Order name: CBC with Automated Diff EDMS 04/03 10:09 Order name: Troponin High Sensitivity EDMS 04/03 06:15 Order name: XRAY Chest (1 view); Complete Time: 08:38 as6 04/03 06:15 Order name: EKG; Complete Time: 06:16 as6 04/03 06:21 Order name: EKG; Complete Time: 06:22 sp4 04/03 10:09 Order name: CONS Physician Consult EDMS 04/03 10:09 Order name: Regular EDMS 04/03 10:09 Order name: EKG Electrocardiogram EDMS 04/03 10:09 Order name: EKG Electrocardiogram EDMS 04/03 10:09 Order name: EKG Electrocardiogram EDMS 04/03 10:09 Order name: EKG Electrocardiogram EDMS 04/03 06:09 Order name: IV Saline Lock; Complete Time: 06:46 sp4 04/03 06:09 Order name: Labs collected and sent; Complete Time: 06:46 sp4 04/03 06:15 Order name: Cardiac monitoring; Complete Time: 06:27 6 04/03 06:15 Order name: EKG - Nurse/Tech; Complete Time: 06:27 as6 04/03 06:15 Order name: O2 Per Protocol; Complete Time: 06:27 6 04/03 06:15 Order name: O2 Sat Monitoring; Complete Time: 06:27 as6 04/03 06:21 Order name: Cardiac monitoring; Complete Time: 06:27 sp4 04/03 06:21 Order name: EKG - Nurse/Tech; Complete Time: 06:27 sp4 04/03 06:21 Order name: IV Saline Lock; Complete Time: 06:45 sp4 04/03 06:21 Order name: Labs collected and sent; Complete Time: 06:45 sp4 04/03 06:21 Order name: O2 Per Protocol; Complete Time: 06:27 sp4 04/03 06:21 Order name: O2 Sat Monitoring; Complete Time: 06:27 sp4 EC:26 Rate is 51 beats/min. Rhythm is regular, Sinus bradycardia. Left axis deviation noted. sp4 DC interval is normal. QRS interval is normal. QT interval is normal. T waves are Normal. No ST changes noted. Clinical impression: No evidence of ischemia. Interpreted by me. Administered Medications: No medications were administered Disposition Summary: 04/03/23 08:47 Hospitalization Ordered Hospitalization Status: Inpatient Admission kdr Provider: Jeet Tucker Location: Telemetry/MedSurg (Inpatient) kdr Condition: Fair kdr Problem: new kdr Symptoms: have improved kdr Bed/Room Type: Standard kdr Room Assignment: 208(04/03/23 10:43) bc6 Diagnosis - Weakness kdr - Bradycardia, unspecified kdr Forms: - Medication Reconciliation Form kdr - SBAR form kdr Signatures: Dispatcher [employer] EDAlber Dias MD MD kdr Jae Rodriguez RN RN as6 Clarice Ann bc6 Yobani Mcgarry MD MD sp4 Corrections: (The following items were deleted from the chart) 06:32 06:22 Chest Single View+RAD.RAD.BRZ ordered. EDMS EDMS 06:53 06:10 CBC+H.LAB.BRZ ordered. EDMS EDMS 06:53 06:22 PROTIME (+INR)+COAG.LAB.BRZ ordered. EDMS EDMS 06:54 06:10 COMPREHENSIVE METABOLIC PANEL+C.LAB.BRZ ordered. EDMS EDMS 06:54 06:10 LIPASE+C.LAB.BRZ ordered. EDMS EDMS 07:59 06:22 BASIC METABOLIC PANEL+C.LAB.BRZ ordered. EDMS EDMS 07:59 06:22 HEPATIC FUNCTION+C.LAB.BRZ ordered. EDMS EDMS 07:59 06:22 MAGNESIUM+C.LAB.BRZ ordered. EDMS EDMS 07:59 06:22 PROBNP+C.LAB.BRZ ordered. EDMS EDMS 07:59 06:22 Troponin High Sensitivity+C.LAB.BRZ ordered. EDMS EDMS 10:43 08:47 kdr bc6
[2023-04-03] MEDS ORDERED: ACETAMINOPHEN 500 MG TAB PO PRN (10:05)
[2023-04-03] MEDS ORDERED: ONDANSETRON 4 MG/2 ML VIAL IV PRN (10:05)
[2023-04-03 12:43] VITALS: BMI 46.6
--- NOTE | 2023-04-03 17:39 | EKG ---
Test Date: 2023-04-03 Test Time: 06:22:50 Software Configuration Analyst: SCOTTIE MEASUREMENT RESULTS: Intervals: Rate: 51 NE: 192 QRSD: 86 QT: 448 QTc: 412 [place]: P: 31 NE: 192 QRS: -31 T: -70 INTERPRETIVE STATEMENTS: Sinus bradycardia Left axis deviation Nonspecific T wave abnormality Abnormal ECG Compared to ECG 10/31/2021 21:23:20 Left-axis deviation now present T-wave abnormality now present Sinus rhythm no longer present Electronically Signed On 04-03-23 17:38:57 CDT by Jason Erickson
[2023-04-03] MEDS ORDERED: HOME MED 1 EA UNK (Simvastatin [Zocor*] 40 MG Tablet) PO SCH (21:00)
[2023-04-03] MEDS ORDERED: ATORVASTATIN 10 MG TAB PO SCH (21:00)
[2023-04-04 03:22] LABS: Hematocrit 45.4 % (36.0-45.0); Lymphocytes % 36.2 % (15.3-44.8); MCV 89.6 fL (80-100); MPV 8.1 fL (7.6-11.3); RBC Red Blood Cell Count 5.06 M/uL (3.86-4.86)
[2023-04-04 03:32] LABS: Potassium 4.2 mEq/L (3.5-5.1)
[2023-04-04] MEDS ORDERED: LEVOTHYROXINE SOD 0.075 MG TAB PO SCH (06:30)
[2023-04-04] MEDS ORDERED: PANTOPRAZOLE 40MG TABLET PO SCH (09:00)
[2023-04-04] MEDS ORDERED: ASPIRIN EC 81 MG TAB PO SCH (09:00)
[2023-04-04] MEDS ORDERED: SPIRONOLACTONE 25 MG TABLET PO SCH (09:00)
[2023-04-04] MEDS ORDERED: HOME MED 1 EA UNK (Omeprazole [Omeprazole] 20 MG Tablet.Dr) PO SCH (09:00)
[2023-04-04 09:14] VITALS: O2SAT 95
[2023-04-04 12:01] VITALS: BP 121/62; TEMP 98.4
--- NOTE | 2023-04-04 16:27 | EKG ---
Test Date: 2023-04-04 Test Time: 08:57:19 Inventory Accountant: NINA MEASUREMENT RESULTS: Intervals: Rate: 51 MA: 184 QRSD: 104 QT: 424 QTc: 390 [place]: P: 36 MA: 184 QRS: -29 T: 219 INTERPRETIVE STATEMENTS: Sinus bradycardia Voltage criteria for left ventricular hypertrophy Nonspecific T wave abnormality Abnormal ECG Compared to ECG 04/03/2023 06:22:50 Left ventricular hypertrophy now present Left-axis deviation no longer present T-wave abnormality still present Electronically Signed On 04-04-23 16:27:05 CDT by Jason Erickson
--- NOTE | 2023-04-24 11:32 | PN ---
Date of Progress Note: 04/02/2023 The patient states when she awoke, already had a hypertension, bradycardia, felt somewhat faint, as s he has been admitted. Still has a mild bradycardia. States she is fine while lying flat; however, s he does experience some exertional dyspnea, which she feels is out of proportion and is wondering whe ther it is heat that she seems to have problems the past in the [place] as well. She was admitted fo r observation and telemetry should help with determining the next move as far as cardiac is concerned , although she states she had a workup including a stress test approximately 6 months ago. We will c ontinue with the same medication until seen by Cardiology. HR/MODL Voice ID: [id number] Report ID: [id number]
== END 2023-04-04 13:00 | disposition home or self-care (01) ==
LOC: ER 05:59 → INTOOBSV 10:05 → ERHOLD 10:05 → 2ND 10:47
PROVIDERS: ADMIT Family Medicine; ATTEND Family Medicine
DX: R00.1 Bradycardia, unspecified (principal); I10 Essential (primary) hypertension; R55 Syncope and collapse; R06.00 Dyspnea, unspecified; E03.9 Hypothyroidism, unspecified; E78.00 Pure hypercholesterolemia, unspecified; R53.1 Weakness
CPT/HCPCS: 93005 ×2; 85025 ×2; 80048 ×2; 36415; 83735; 85610; 80076; 81003; 84484 ×2; 83880; 71045; 99285; G0378 ×7

== ENCOUNTER 2024-07-26 09:31 | Emergency (ER) | payer BC ==
--- OUTSIDE RECORDS SUMMARY | 2024-07-26 09:33 | XMS REPORT | Continuity of Care Document ---
Author Name Unknown Address [address] [facility] [place]. [address] [place] [address] [facility] Address [address] [facility] [place] [address] Care Team Providers Care Mud Cleaner Operator Name Role Phone SUSANA GA A Primary Care Physician UnaDEMETRIO Lund Attending Clinician Unavailable Doctor Unassigned, [place] Attending Clinician U SIMRAN Arellano Attending Clinician Unavailable Star Gao PT, Monik Attending Clinician Un available Alfredo White MD Attending Clinician [phone] ALFREDO WHITE Attending Clinician UnavailLiat Ontiveros MD Attending Clinician [phone] Simran Cesar Attending Clinician [phone] Vls-Lab Attending Clinician Unavailable Demetrio Marion MD Attending Clinician Unavaila ble 2, [facility] Attending Clinician Unavailable Karly Rascon Attending Clinician [phone] Pob1, Acute Care Clinic Attending Clinician UnaKARLY Rondon Attending Clinician Unavailabl e Payers Payer Name Policy Type Policy Number Effective Date Expirati on Date Source [facility] [id number] 2015 00:00:00 Problems Condition Name Condition Details Condition Category Status Onset Date Resolution Date Last Treatment Date Treating Clinician Comments Source Postsurgic al hypothyroi dism Postsurgic al hypothyroi dism Disease Active 05-14 00:00: 00 [facility] H. pylori infection H. pylori infection Disease Active 2009-10 00:00: 00 [facility] Helicobact er pylori infection Helicobact er pylori infection Disease Active 2009-10 00:00: 00 Overview: Formattin g of this note might be different from the original. ICD10 Diagnosis Term Corporate Coordinator Utility [facility] Morbid obesity Morbid obesity Disease Active 06-12 00:00: 00 [facility] Thyroid cancer Thyroid cancer Disease Active 06-12 00:00: 00 [facility] Hyperlipem ia Hyperlipem ia Disease Active 06-12 00:00: 00 Overview: Formattin g of this note might be different from the original. ICD10 Diagnosis Term Corporate Coordinator Utility [facility] CLIFFORD (obstructi ve sleep apnea) CLIFFORD (obstructi ve sleep apnea) Disease Active [facility] Allergies, Adverse Reactions, Alerts Allergy Name Allergy Type Status Severity Reaction(s) Onset Date Inactive Date Treating Clinician Comments Source Sudafed Cough Propensi ty to adverse reaction s Active Unknown - See comments 04-04 00:00: [address] [facility] SUDAFED COUGH DRUG Active Unknown-Cmnt 04-04 00:00: 00 [facility] CODEINE DRUG INGREDI Active Palpitations 06-21 00:00: 00 [facility] Codeine Propensi ty to adverse reaction s Active Palpitations 06-21 00:00: 00 [facility] Social History Social Habit Start Date Stop Date Quantity Comments Source [facility] to SARS-CoV-2 (event) 2021-03-12 00:00:00 2021-04-11 10:57:00 Not sure [facility] History of Social function 2021-01-15 00:00:00 2021-01-15 00:00:00 [facility] Alcohol intake 2020-05-08 00:00:00 2020-05-08 00:00:00 Current non-drinker of alcohol (finding) [facility] Tobacco use and exposure 2011-04-12 00:00:00 2011-04-12 00:00:00 Smokeless tobacco non-user [facility] Sex Assigned At 1970 00:00:00 1970 00:00:00 [facility] Smoking Status Start Date Stop Date Source Never smoked tobacco [facility] Medications Ordered Medication Name Filled Medication Name Start Date Stop Date Current Medication? Ordering Clinician Indication Dosage Frequency Signature (SIG) Comments Components Source barium sulfate (E-Z-HD BARIUM) 98 % oral suspension 90 mL 04-11 17:00: 00 04-11 16:47 :00 No [id number] 90mL 90 mL, Oral, ONCE, 1 dose, Fri04/11/21 at 1200, Routine [facility] barium sulfate (LIQUID E-Z PAQUE) 60 % (w/v) oral suspension 90 mL 04-11 17:00: 00 04-11 16:48 :00 No [id number] 90mL 90 mL, Oral, ONCE, 1 dose, Fri04/11/21 at 1200, Routine [facility] sod bicarb-citr ic ac-simeth (E-Z-GAS II) 2.21-1.53 gram/4 gram packet 1 Packet 04-11 17:00: 00 04-11 16:48 :00 No [id number] 1{packe t} 1 Packet, Oral, ONCE, 1 dose, Fri04/11/21 at 1200, Routine [facility] fexofenadin e HCl (REGINE ALLERGY ORAL) 04-04 14:40: 54 Yes Take by mouth. [facility] meloxicam 15 mg tablet 04-04 14:35: 05 Yes 15mg Take 15 mg by mouth daily. [facility] meloxicam 15 mg tablet 04-04 09:35: 05 Yes 15mg Take 15 mg by mouth daily. [facility] OZEMPIC 1 mg/dose (2 mg/1.5 mL) PnIj 5-18 00:00: 00 Yes INJECT 1 MG SUBCUTANES OULY ONCE WEEKLY [facility] levothyroxi ne 150 mcg tablet 01-19 00:00: 00 Yes [id number] 150ug Take 1 tablet by mouth every morning. [facility] levothyroxi ne 150 mcg tablet 12-05 00:00: 00 01-19 00:00 :00 No [id number] 150ug Take 1 tablet by mouth every morning. [facility] levothyroxi ne 150 mcg tablet 06-20 00:00: 00 12-05 00:00 :00 No [id number] 150ug Take 1 tablet by mouth every morning. [facility] LEVOTHYROXI NE 150 mcg tablet 05-24 00:00: 00 06-20 00:00 :00 No [id number] TAKE 1 TABLET BY MOUTH EVERY DAY IN THE MORNING [facility] spironolact one 50 mg tablet 05-08 13:51: 55 Yes 50mg Take 50 mg by mouth daily. [facility] spironolact one 50 mg tablet 05-08 08:51: 55 Yes 50mg Take 50 mg by mouth daily. [facility] LEVOTHYROXI NE 150 mcg tablet 04-28 00:00: 05-24 00:00 :00 No [id number] TAKE 1 TABLET BY MOUTH EVERY DAY IN THE MORNING [facility] levothyroxi ne 150 mcg tablet 01-30 00:00: 00 04-28 00:00 :00 No [id number] TAKE 1 TABLET BY MOUTH EVERY DAY IN THE MORNING [facility] meloxicam 15 mg tablet 01-05 19:43: 54 Yes 15mg Take 15 mg by mouth daily. [facility] spironolact one 50 mg tablet 01-05 19:43: 54 Yes 50mg Take 50 mg by mouth daily. [facility] levothyroxi ne 150 mcg tablet 01-05 00:00: 00 01-30 00:00 :00 No [id number] TAKE 1 TABLET BY MOUTH EVERY DAY IN THE MORNING [facility] carvedilol (COREG) 3.125 mg tablet 05-14 00:00: 00 Yes [id number] 3.125mg Take 1 tablet by mouth 2 (two) times daily with meals. [facility] simvastatin (ZOCOR) 40 mg tablet 11-14 00:00: 00 Yes [id number] 40mg Take 1 Tab by mouth at bedtime. [facility] Vital Signs Vital Name Observation Time Observation Value Comments S ource Systolic blood pressure 2021-01-15 19:23:00 118 mm[Hg] [facility] Diastolic blood pressure 2021-01-15 19:23:00 78 mm[Hg] [facility] Heart rate 2021-01-15 19:23:00 59 /min [facility] Respiratory rate 2021-01-15 19:23:00 19 /min [facility] Body height 2021-01-15 19:23:00 172.7 cm [facility] Body weight 2021-01-15 19:23:00 142.974 kg [facility] BMI 2021-01-15 19:23:00 47.93 kg/m2 [facility] Systolic blood pressure 2020-05-08 13:53:00 138 mm[Hg] [facility] Diastolic blood pressure 2020-05-08 13:53:00 86 mm[Hg] [facility] Heart rate 2020-05-08 13:53:00 80 /min [facility] Body temperature 2020-05-08 13:53:00 37.28 Jinny [facility] Respiratory rate 2020-05-08 13:53:00 18 /min [facility] Body height 2020-05-08 13:53:00 172.7 cm [facility] Body weight 2020-05-08 13:53:00 127.007 kg [facility] BMI 2020-05-08 13:53:00 42.57 kg/m2 [facility] Oxygen saturation in Arterial blood by Pulse oximetry 2020-05-08 13:53:00 97 /min [facility] Procedures Procedure Date / Time Performed Performing Clinicia n Source EXTERNAL PROVIDER RECORDS 2021-06-01 05:01:00 Doctor Unassigned, [place] [facility] EXTERNAL PROVIDER RECORDS 2021-04-26 05:01:00 Doctor Unassigned, [place] [facility] US LIVER 2021-04-11 16:17:00 Simran Bacon [facility] HEAD NECK 2021-01-22 20:36:53 Demetrio Marion [facility] Encounters Start Date/Time End Date/Time Encounter Type Admission Type Attending Clinicians Care Facility Care Department Encounter ID Source 2022-01-14 15:00:00 2022-01-14 15:00:00 Outpatient DEMETRIO GRANDE [facility] [id number] [facility] 2021-06-01 00:00:00 2021-06-01 00:00:00 Orders Only Doctor Unassigned, [place] [facility] 1..840.114 350.1.13.10 4.2.7.2.[id number] [facility] 2021-05-14 08:45:00 2021-05-14 08:45:00 Outpatient SIMRAN ULLOA [facility] [id number] [facility] 2021-04-26 00:00:00 2021-04-26 00:00:00 Orders Only Doctor Unassigned, [place] [facility] 1.840.114 350.1.13.10 4.2.7.2.[id number] [facility] 2021-04-25 14:57:27 2021-04-25 15:47:36 Ancillary Visit Monik Fuller [facility] 1.840.114 350.1.13.10 4.2.7.2.[id number] [facility] 2021-04-25 15:00:00 2021-04-25 15:00:00 Outpatient ALFREDO SHERMAN [facility] [id number] [facility] 2021-04-20 00:00:00 2021-04-20 00:00:00 Telephone Liat Mello [facility] Medical Office Building 1.84.114 350.1.13.10 4.2.7.2.[id number] [facility] 2021-04-18 13:40:00 2021-04-18 13:40:00 Outpatient R ALFREDO WHITE [facility] [id number] [facility] 2021-04-11 10:58:11 2021-04-11 23:59:00 Hospital Encounter Jordi Simran [facility] [place] AT [facility] 1.84.114 350.1.13.10 4.2.7.2.[id number] [facility] 2021-04-11 10:57:50 2021-04-11 10:57:50 Hospital Encounter Jordi Simran [facility] [place] AT [facility] 1.84.114 350.1.13.10 4.2.7.2.[id number] [facility] 2021-04-11 00:00:00 2021-04-11 00:00:00 Outpatient SIMRAN ULLOA [facility] [id number] [facility] 2021-04-04 13:05:05 2021-04-04 13:20:05 Marine Design Engineer Visit Vls-Lab Jordi [facility] 1.84.114 350.1.13.10 4.2.7.2.[id number] [facility] 2021-04-04 09:00:00 2021-04-04 09:00:00 Outpatient SIMRAN ULLOA [facility] [id number] [facility] 2021-02-20 00:00:00 2021-02-20 00:00:00 Patient Secure Msg Doctor Unassigned, [place] [facility] 1.84.114 350.1.13.10 4.2.7.2.[id number] [facility] 2021-02-06 00:00:00 2021-02-06 00:00:00 Patient Secure Msg Demetrio Marion [facility] 1.2.840.114 350.1.13.10 4.2.7.2.[id number] [facility] 2021-01-23 00:00:00 2021-01-23 00:00:00 Telephone Doni [facility] 1.2.840.114 350.1.13.10 4.2.7.2.[id number] [facility] 2021-01-22 15:04:59 2021-01-22 23:59:00 Hospital Encounter Doni [facility] 1.2.840.114 350.1.13.10 4.2.7.2.[id number] [facility] 2021-01-22 00:00:00 2021-01-22 00:00:00 Outpatient R DEMETRIO MARION [facility] [id number] [facility] 2021-01-19 00:00:00 2021-01-19 00:00:00 Patient Secure Msg Doni [facility] Building 1.2.840.114 350.1.13.10 4.2.7.2.[id number] [facility] 2021-01-15 15:02:26 2021-01-15 15:17:26 Marine Design Engineer Visit 2, Adc Lab Doni [facility] Building 1.2.840.114 350.1.13.10 4.2.7.2.[id number] [facility] 2021-01-15 14:02:19 2021-01-15 14:32:19 Office Visit Demetrio Marion [facility] Professio nal Building 1.2.840.114 350.1.13.10 4.2.7.2.[id number] [facility] 2021-01-15 14:00:00 2021-01-15 14:00:00 Outpatient R DONI [facility] [id number] [facility] 2021-01-01 10:00:00 2021-01-01 10:00:00 Outpatient R DONI [facility] [id number] [facility] 2020-12-05 00:00:00 2020-12-05 00:00:[address] [facility] Building 1.2.840.114 350.1.13.10 4.2.7.2.[id number] [facility] 2020-12-04 00:00:00 2020-12-04 00:00:00 Patient Secure Msg Doctor Unassigned, [place] [facility] 1.2.840.114 350.1.13.10 4.2.7.2.[id number] [facility] 2020-12-01 00:00:00 2020-12-01 00:00:00 [facility] 1.2.840.114 350.1.13.10 4.2.7.2.[id number] [facility] 2020-09-28 00:00:00 2020-09-28 00:00:00 [facility] 1.2.840.114 350.1.13.10 4.2.7.2.[id number] [facility] 2020-09-28 00:00:00 2020-09-28 00:00:00 Patient Secure Msg Doctor Unassigned, [place] [facility] 1.114 350.1.13.10 4.2.7.2.[id number] [facility] 2020-06-20 00:00:00 2020-06-20 00:00:[address] [facility] Building 1..114 350.1.13.10 4.2.7.2.[id number] [facility] 2020-06-16 00:00:00 2020-06-16 00:00:[address] [facility] Building 1.84.114 350.1.13.10 4.2.7.2.[id number] [facility] 2020-05-29 16:00:00 2020-05-29 16:00:00 Outpatient R DONI [facility] [id number] [facility] 2020-05-24 00:00:00 2020-05-24 00:00:[address] [facility] Building 1.84.114 350.1.13.10 4.2.7.2.[id number] [facility] 2020-05-09 00:00:00 2020-05-09 00:00:00 Telephone Karly Galdamez [facility] Office Building One 1..114 350.1.13.10 4.2.7.2.[id number] [facility] 2020-05-09 00:00:00 2020-05-09 00:00:00 Telephone Ana Galdamezgerry [facility] Office Building One 1.2840.114 350.1.13.10 4.2.7.2.[id number] [facility] 2020-05-08 08:47:49 2020-05-08 09:07:49 Urgent Care Pob1, Acute Care Clinic Karly Galdamez [facility] Office Building One 1.2840.114 350.1.13.10 4.2.7.2.[id number] [facility] 2020-05-08 08:40:00 2020-05-08 08:40:00 Outpatient R ALONDRA KIANAGerry [facility] [id number] [facility] 2020-05-08 00:00:00 2020-05-08 00:00:00 Letter (Out) Doctor Unassigned, [place] [facility] 1.2840.114 350.1.13.10 4.2.7.2.[id number] [facility] 2020-04-27 00:00:00 2020-04-27 00:00:[address] [facility] Building 1.2840.114 350.1.13.10 4.2.7.2.[id number] [facility] 2020-02-14 13:10:59 2020-02-14 16:24:17 Telemedici ne Visit Doni [facility] Building 1.2840.114 350.1.13.10 4.2.7.2.[id number] [facility] 2020-02-14 13:10:59 2020-02-14 16:24:17 Telemedici ne Visit Doni [facility] Building 1.2840.114 350.1.13.10 4.2.7.2.686 [id number] 2020-02-14 15:30:00 2020-02-14 15:30:00 Outpatient R DEMETRIO MARION [facility] [id number] [facility] 2020-01-31 00:00:00 2020-01-31 00:00:00 [facility] 1.2.840.114 350.1.13.10 4.2.7.2.[id number] [facility] 2020-01-31 00:00:00 2020-01-31 00:00:00 Refill Doni [facility] 1.2.840.114 350.1.13.10 4.2.7.2.686 [id number] 2020-01-17 16:00:00 2020-01-17 16:00:00 Outpatient R DONI [facility] [id number] [facility] Results Test Description Test Time Test Comments Results Resul t Comments Source LIVER 3 0 22:08:29 1. ?Limited visualization of the hepatic parenchyma given body habitus. Nodefinite changes appreciated. 2. ?No cholelithiasis or sonographic evidence of cholecystitis. Preliminary Report Dictated by Resident: Yulia Wheeler MD., have reviewed this study and agree with the abovereport.EXAM: US LIVER HISTORY: 50 years-old Female with morbid obesity. Evaluate for fatty liverdisease . TECHNIQUE: Limited abdominal ultrasound was performed focused on the liver,biliary system, pancreas and spleen. Main portal vein was evaluated withcolor and spectral Doppler imaging. Elementary Instructional Coach images were obtained forthe record. COMPARISON: None [...] portions of the right kidney are unremarkable. [facility], Radiant Results Inft User - 04/11/2021 5:09 PM CDT EXAM: US LIVERHISTORY: 50 years-old Female with morbid obesity. Evaluate for fatty liverdisease .TECHNIQUE: Limited abdominal ultrasound was performed focused on the liver,biliary system, pancreas and spleen. Main portal vein was evaluated withcolor and spectral Doppler imaging. Elementary Instructional Coach images were obtained forthe record.COMPARISON: NoneFINDINGS:LIVER: Length: [...] this study and agree with the abovereport. [facility] US HEAD NECK 2021-01-11 20:50:10 Status post thyroidectomy. No recurrent or residual disease to the extentvisualized. No cervical lymphadenopathy. ---- THYROID ULTRASOUND ACR TI-RADS INDICATION: thyroid cancer hx TECHNIQUE: Ultrasound examination of the thyroid and adjacent soft tissueswas performed. FINDINGS: Status post thyroidectomy. No residual or recurrent soft tissue attenuationin the postsurgical bed. Few subcentimeter cervical lymph nodes with preserved fatty francine are seenscattered throughout the adjacent bilateral neck, likely reactive andsimilar prior. [facility], Radiant Results Inft User - [...] disease to the extentvisualized.No cervical lymphadenopathy.--- - [facility]
[2024-07-26 10:01] LABS: Absolute Lymphocytes (CBC) 2.2 K/uL (0.7-4.9); Absolute Monocytes 0.5 K/uL (0.1-1.3); Absolute Neutrophil 5.7 K/uL (1.8-8.0); Basophils % 0.5 % (0-1.3); Eosinophils % 0.4 % (0-4.4); Hematocrit 47.7 % (36.0-45.0); Hemoglobin 15.6 g/dL (12.0-15.0); Lymphocytes % 25.7 % (15.3-44.8); MCH 29.5 pg (27.0-35.0); MCHC 32.7 g/dL (32.0-36.0); MCV 90.3 fL (80-100); MPV 7.9 fL (7.6-11.3); Monocytes % 5.8 % (3.3-12.3); Neutrophils % 67.6 % (41.7-73.7); Platelets 296 thou/uL (152-406); RBC Red Blood Cell Count 5.29 M/uL (3.86-4.86)
[2024-07-26 10:02] LABS: PT Prothrombin Time 12.3 SECONDS (9.4-12.5); Protime INR 1.1
[2024-07-26] MEDS ORDERED: FAMOTIDINE 20 MG/2 ML VIAL IV ONE (10:03)
[2024-07-26] MEDS ORDERED: MORPHINE 2 MG/ML SYR ONE (10:03)
[2024-07-26 10:16] LABS: Anion Gap 7.8 mEq/L (5.0-15.0); Potassium 3.8 mEq/L (3.5-5.1); Troponin High Sensitivity 18.2 pg/mL (<58.9)
--- NOTE | 2024-07-26 10:17 | RAD REPORT ---
EXAMINATION: ONE VIEW CHEST XR CLINICAL INDICATION: CHEST PAIN TECHNIQUE: Frontal chest projection is submitted. Examination is limited by patient positioning and t echnique. COMPARISON: 04/03/2023 FINDINGS: Mild bilateral pulmonary edema is suspected. The heart is upper limit of normal in size. No displaced fractures identified. IMPRESSION: Mild CHF versus volume overload pattern is suspected.
--- NOTE | 2024-07-26 10:38 | EDPHYS ---
Physician Documentation [facility] Name: Nika Low Age: 53 yrs Sex: Female : 1970 Arrival Date: 07/26/2024 Time: 09:31 Bed 4 Private MD: ED Physician German Robledo HPI: 07/26 09:46 This 53 yrs old Female presents to ER via Ambulatory with complaints of Chest ec2 Pain, Numbness Of Arm. 09:46 Patient arrives today for evaluation of chest pain left arm numbness ongoing for 4 ec2 days. Patient reports the symptoms have been intermittent, improved with antacid. Patient reports no difficulty breathing. History of CHF, hypothyroidism. Patient reports no nausea or vomiting, denies abdominal pain.. Historical: - Allergies: 09:48 caffeine; hb 09:48 Sudafed; hb 09:48 zpack; hb - Home Meds: 09:48 carvedilol 6.25 mg Oral tab [Active]; levothyroxine 125 mcg oral tablet [Active]; hb meloxicam Oral [Active]; simvastatin 40 mg Oral tab [Active]; - PMHx: 09:48 Bigeminy Arrythmia; High Cholesterol; Hypothyroidism; Thyroid problem; hb - PSHx: 09:48 Thyroidectomy; Total abdominal hysterectomy; hb - Immunization history:: Adult Immunizations up to date. - Infectious Disease History:: Denies. - Social history:: Smoking status: Patient denies any tobacco usage or history of. ROS: 09:46 Constitutional: as per hpi ec2 Exam: 09:46 Constitutional: GEN: NAD Head: atraumatic Eyes: EOMI Ears: External ears are ec2 normal. CV: regular rate LUNGS: no respiratory distress ABD: non-distended SKIN: no evidence of rashes MSK: no evidence of trauma Vital Signs: 09:41 BP 164 / 109; Pulse 78; Resp 16; Temp 97.5(TE); Pulse Ox 96% on R/A; Weight 140.61 kg; hb Height 5 ft. 8 in. ; Pain 6/10; 11:00 BP 159 / 99; Pulse 74; Resp 18 S; Pulse Ox 96% on R/A; aa5 09:41 Body Mass Index 47.13 (140.61 kg, 172.72 cm) hb 09:41 Pain Scale: Adult hb MDM: 09:46 Data reviewed: vital signs. ED course: Patient arrives today for evaluation of chest ec2 pain. Examination remarkable for well-appearing nontoxic individuals otherwise in no acute distress with a reassuring lamination. Will obtain lab work, EKG, chest x-ray. Differential diagnoses considered include processes such as ACS, PE, dissection. Additionally considering gastritis.. 09:48 ED course: EKG independently reviewed and interpreted by me, shows normal sinus rhythm, ec2 rate of 68, no acute ST segment elevations, intervals are nonactionable, PVCs noted.. 10:20 ED course: Metabolic profile reassuring, CBC reassuring, troponin and BNP are ec2 nonactionable. Chest x-ray shows no acute intrathoracic process, does shows mild CHF. Patient is not hypoxic or working hard to breathe. 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 10:38 Medical Screening Exam initiated ec2 07/26 09:39 Order name: Basic Metabolic Panel; Complete Time: 10:19 ec2 07/26 09:39 Order name: CBC with Diff; Complete Time: 10:19 ec2 07/26 09:39 Order name: NT PRO-BNP; Complete Time: 10:19 ec2 07/26 09:39 Order name: PT-INR; Complete Time: 10:19 ec2 07/26 09:39 Order name: Troponin HS; Complete Time: 10:19 ec2 07/26 09:39 Order name: XRAY Chest (1 view); Complete Time: 10:19 ec2 07/26 09:39 Order name: EKG; Complete Time: 09:39 ec2 07/26 09:39 Order name: Cardiac monitoring; Complete Time: 09:49 ec2 07/26 09:39 Order name: EKG - Nurse/Tech; Complete Time: 09:49 ec2 07/26 09:39 Order name: IV Saline Lock; Complete Time: 09:49 ec2 07/26 09:39 Order name: Labs collected and sent; Complete Time: 09:49 ec2 07/26 09:39 Order name: O2 Per Protocol; Complete Time: 09:49 ec2 07/26 09:39 Order name: O2 Sat Monitoring; Complete Time: 09:49 ec2 Administered Medications: 10:00 Drug: Famotidine IVP 20 mg IVP once; dilute with 10 mL 0.9% NaCl; give over 2 minutes bp Route: IVP; Site: right forearm; 10:00 Drug: morphine IVP or IV 2 mg IVP once over 4 mins Route: IVP; Infused Over: 4 mins; bp Site: right forearm; Disposition Summary: 07/26/24 10:38 Discharge Ordered Notes: Location: Home ec2 Condition: Stable ec2 Diagnosis - Chest pain, unspecified ec2 Followup: ec2 - With: Private Physician - When: - Reason: Re-evaluation by your physician Discharge Instructions: - Discharge Summary Sheet ec2 - Nonspecific Chest Pain, Adult, Vzro-sz-Gwcg ec2 Forms: - Medication Reconciliation Form ec2 - Antibiotic Education ec2 - Prescription Opioid Use ec2 - Patient Portal Instructions ec2 - Leadership Thank You Letter ec2 Signatures: Dispatcher [employer] Laura Laughlin, RN RN Bryce Mcclelland RN RN German Rock MD MD ec2 Corrections: (The following items were deleted from the chart) 09:40 09:39 BASIC METABOLIC PANEL+C.LAB.BRZ ordered. EDMS EDMS 09:40 09:39 CBC+H.LAB.BRZ ordered. EDMS EDMS 09:40 09:39 PROBNP+C.LAB.BRZ ordered. EDMS EDMS 09:40 09:39 PROTIME (+INR)+COAG.LAB.BRZ ordered. EDMS EDMS 09:40 09:39 Troponin High Sensitivity+C.LAB.BRZ ordered. EDMS EDMS 09:49 09:48 PMHx: bigemeny arrythmia; hb hb
--- NOTE | 2024-07-26 10:38 | ER ---
Nurse's Notes [facility] Name: Nika Low Age: 53 yrs Sex: Female : 1970 Arrival Date: 07/26/2024 Time: 09:31 Bed 4 Private MD: Diagnosis: Chest pain, unspecified Presentation: 07/26 09:41 Chief complaint: Intermittent left sided chest pain that radiates to left arm x 3 days. hb Coronavirus screen: At this time, the client does not indicate any symptoms associated with coronavirus-19. Ebola Screen: No symptoms or risks identified at this time. Initial Sepsis Screen: Does the patient meet any 2 criteria? No. Patient's initial sepsis screen is negative. Does the patient have a suspected source of infection? No. Patient's initial sepsis screen is negative. Risk Assessment: Do you want to hurt yourself or someone else? Patient reports no desire to harm self or others. Onset of symptoms was July 24, 2024. 09:41 Method Of Arrival: Ambulatory hb 09:41 Acuity: GRANT 2 hb Historical: - Allergies: 09:48 caffeine; hb 09:48 Sudafed; hb 09:48 zpack; hb - Home Meds: 09:48 carvedilol 6.25 mg Oral tab [Active]; levothyroxine 125 mcg oral tablet [Active]; hb meloxicam Oral [Active]; simvastatin 40 mg Oral tab [Active]; - PMHx: 09:48 Bigeminy Arrythmia; High Cholesterol; Hypothyroidism; Thyroid problem; hb - PSHx: 09:48 Thyroidectomy; Total abdominal hysterectomy; hb - Immunization history:: Adult Immunizations up to date. - Infectious Disease History:: Denies. - Social history:: Smoking status: Patient denies any tobacco usage or history of. Assessment: 09:50 Reassessment: Patient is alert, oriented x 3, equal unlabored respirations, skin aa5 warm/dry/pink. Warm blankets provided for comfort. . 11:10 Reassessment: Patient is alert, oriented x 3, equal unlabored respirations, skin aa5 warm/dry/pink. Vital Signs: 09:41 BP 164 / 109; Pulse 78; Resp 16; Temp 97.5(TE); Pulse Ox 96% on R/A; Weight 140.61 kg; hb Height 5 ft. 8 in. ; Pain 6/10; 11:00 BP 159 / 99; Pulse 74; Resp 18 S; Pulse Ox 96% on R/A; aa5 09:41 Body Mass Index 47.13 (140.61 kg, 172.72 cm) hb 09:41 Pain Scale: Adult hb ED Course: 09:33 Patient arrived in ED. mr 09:33 German Robledo MD is Attending Physician. ec2 09:36 Bryce Cosme, RN is Primary Nurse. bp 09:43 Triage completed. hb 09:45 Initial lab(s) drawn, by me, sent to lab. Inserted saline lock: 20 gauge in right aa5 antecubital area, using aseptic technique. Blood collected. Flushed with 10 mL NS. 09:49 Arm band placed on. hb 10:14 XRAY Chest (1 view) In Process Unspecified. EDMS 11:10 No provider procedures requiring assistance completed. IV discontinued, intact, aa5 bleeding controlled, No redness/swelling at site. Pressure dressing applied. Administered Medications: 10:00 Drug: Famotidine IVP 20 mg IVP once; dilute with 10 mL 0.9% NaCl; give over 2 minutes bp Route: IVP; Site: right forearm; 10:00 Drug: morphine IVP or IV 2 mg IVP once over 4 mins Route: IVP; Infused Over: 4 mins; bp Site: right forearm; Outcome: 10:38 Discharge ordered by MD. ec2 11:12 Discharged to home ambulatory, aa5 11:12 Condition: stable 11:12 Discharge instructions given to patient, Instructed on discharge instructions, follow up and referral plans. Demonstrated understanding of instructions, follow-up care, 11:13 Patient left the ED. aa5 Signatures: Dispatcher [employer] EDHI GriffithCristel rosado, Reg Reg mr BroEvelyne RN RN aa5 Laura Lentz RN RN hb Peltier, Brian, RN RN bp German Robledo MD MD ec2 Corrections: (The following items were deleted from the chart) 09:49 09:48 PMHx: bigemeny arrythmia; hb hb
[2024-07-26 11:33] VITALS: O2SAT 96
[2024-07-26 11:35] VITALS: BP 164/109; TEMP 97.5
--- NOTE | 2024-07-29 12:05 | EKG ---
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
== END 2024-07-26 11:13 | disposition home or self-care (01) ==
LOC: ER 09:31
DX: R07.9 Chest pain, unspecified (principal); I50.9 Heart failure, unspecified; E78.00 Pure hypercholesterolemia, unspecified; E03.9 Hypothyroidism, unspecified
CPT/HCPCS: 93005; 85025; 80048; 36415; 85610; 84484; 83880; 71045; J2270; 96374; 96375; 99284

== ENCOUNTER 2025-02-07 11:20 | Day surgery (SDC) | payer OTHER ==
[2025-01-28 13:25] LABS: Absolute Basophils 0.1 K/uL (0-0.5); Absolute Lymphocytes (CBC) 2.2 K/uL (0.7-4.9); Absolute Monocytes 0.4 K/uL (0.1-1.3); Absolute Neutrophil 5.5 K/uL (1.8-8.0); Basophils % 0.7 % (0-1.3); Eosinophils % 0.5 % (0-4.4); Hematocrit 46.9 % (36.0-45.0); Lymphocytes % 26.7 % (15.3-44.8); MCH 29.7 pg (27.0-35.0); MCHC 34.2 g/dL (32.0-36.0); MPV 8.1 fL (7.6-11.3); Monocytes % 5.3 % (3.3-12.3); Neutrophils % 66.8 % (41.7-73.7); Nucleated Red Blood Cells % 0.1 % (0-0); Platelets 297 thou/uL (152-406); RBC Red Blood Cell Count 5.38 M/uL (3.86-4.86); Red Cell Distribution Width 13.7 % (12.1-15.2)
[2025-01-28 13:33] LABS: Anion Gap 8.8 mEq/L (5.0-15.0); Potassium 3.8 mEq/L (3.5-5.1)
--- NOTE | 2025-01-28 13:36 | RAD REPORT ---
Procedure: Chest Pa And Lat (2 Views) HISTORY: Preop for cardiac catheterization COMPARISON: 2023 FINDINGS: The lungs appear clear of acute infiltrate. No significant pleural effusion noted. The heart is mildly enlarged. IMPRESSION: No acute abnormality is displayed.
[2025-01-28 13:37] LABS: PT Prothrombin Time 12.2 SECONDS (10-13.0); PTT, Activated Partial Thromb 30.1 SECONDS (27.2-37.4); Protime INR 1.07
--- NOTE | 2025-02-02 12:55 | EKG ---
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
[2025-02-07] MEDS ORDERED: NA CHLORIDE 0.9% 500 ML ONE (11:34)
[2025-02-07] MEDS ORDERED: LIDOCAINE 1% 20 ML MDV ONE (11:38)
[2025-02-07] MEDS ORDERED: HEPA 1000U/500MLS 2,000 UNIT/1,000 ML BAG IV ONE (11:38)
[2025-02-07] MEDS ORDERED: HEPARIN 10,000 UNIT/10 ML VIAL IV ONE (11:38)
[2025-02-07] MEDS ORDERED: VERAPAMIL HCL 10 MG/4 ML VIAL IV ONE (11:39)
[2025-02-07] MEDS ORDERED: ATROPINE SULF 1 MG/10 ML SYR IV ONE (11:39)
[2025-02-07] MEDS ORDERED: MIDAZOLAM HCL 2 MG/2 ML INJ ONE (11:39)
[2025-02-07] MEDS ORDERED: CLOPIDOGREL 75 MG TABLET ONE (11:40)
[2025-02-07] MEDS ORDERED: HEPARIN 5000 UNIT/ML 1 ML VIAL ONE (11:40)
[2025-02-07] MEDS ORDERED: FENTANYL CITR 100 MCG/2 ML ONE (11:40)
[2025-02-07] MEDS ORDERED: ASPIRIN 325 MG TAB ONE (11:40)
[2025-02-07] MEDS ORDERED: TICAGRELOR 90 MG TABLET PO ONE (11:40)
[2025-02-07 14:47] VITALS: BP 129/62
[2025-02-07 15:33] VITALS: O2SAT 100
--- NOTE | 2025-02-07 20:12 | OP ---
Date of Procedure: 02/07/2025 Surgeon: MELINDA NEWTON Procedures Performed: 1. Selective coronary angiogram. 2. Left heart catheterization. Indication: Chest pain with abnormal stress test suggestive of unstable angina. Access: Right radial artery 6-Malawian, closed with TR band. Complications: None. Bleeding: Less than 50 mL. Anesthesia: Total sedation time is 1 hour, used fentanyl and Versed. Description Of Procedure: After risks, benefits, and alternatives were explained, patient agreed to procedure and signed informed consent. The patient was brought into cardiac catheterization laborato , prepped and draped in sterile fashion. Then, I accessed the right radial artery using pediatric micropuncture kit, ultrasound guidance, fluoroscopy and placed 6-[place] Slender sheath and took 5-[facility] 4 catheter into the aortic root over J-wire across the aortic valve, measured the LVEDP. P ullback did not record any gradient, then engaged left main, took standard views and then in the RCA, took standard views. Removed the catheter and sheath, placed TR band with good hemostasis. Findings: 1. Left main: Large and normal. 2. LAD: Large vessel. Proximal segment is normal. Mid to distal, there is focal 20% stenosis. Lum inal irregularities of the diagonals. 3. Ramus intermedius: Large and normal. 4. Left circumflex is normal and codominant. 5. RCA: It is codominant with distal 30% stenosis. 6. The LVEDP is borderline between 10 and 50 mmHg. Conclusion: 1. Mild nonobstructive coronary artery disease. 2. Mildly elevated LVEDP. Recommendation: Medical management. SR/MODL Voice ID: [id number] Report ID: [id number]
== END 2025-02-07 15:10 | disposition home or self-care (01) ==
LOC: PRE 11:20
PROVIDERS: ATTEND Internal Medicine
DX: I25.110 Atherosclerotic heart disease of native coronary artery with unstable angina pectoris (principal); I34.0 Nonrheumatic mitral (valve) insufficiency; I51.7 Cardiomegaly; I73.9 Peripheral vascular disease, unspecified; I10 Essential (primary) hypertension; E11.9 Type 2 diabetes mellitus without complications; E78.2 Mixed hyperlipidemia; E03.9 Hypothyroidism, unspecified; E66.01 Morbid (severe) obesity due to excess calories; Z79.899 Other long term (current) drug therapy; Z82.49 Family history of ischemic heart disease and other diseases of the circulatory system
CPT/HCPCS: 93005; 85025; 80048; 36415; 85610; 85730; 71046; 93458; 76937; C1893; Q9966; J1644; J2003; J2250; J3010; J7040; 99152; 99153; J0461